=== PATIENT | female | born 1950 | race Caucasian/White ===

== ENCOUNTER → 2019-12-23 13:13 | Outpatient (CLI) | payer MEDICARE, SELFPAY ==
--- NOTE | ~2019-12-23 | US_ITS ---
EXAMINATION: US thyroid DATE: 12/23/2019 13:38 INDICATION: Nontoxic single thyroid nodule. TECHNIQUE: Multiple ultrasound images of the thyroid were obtained. COMPARISON: Ultrasound 07/31/2019, 05/06/2019 FINDINGS: The right thyroid lobe measures 4.9 x 1.9 x 1.9 cm. The left thyroid lobe measures 6.0 x 2.0 x 2.6 c m. The thyroid is diffusely hypoechoic with coarsened echotexture and increased vascularity. In the left thyroid lobe, there is a 2.5 cm solid, hypoechoic, tjztg-vigg-udqt nodule with ill-defined shae n without echogenic foci (TI-RADS TR4). In the left thyroid lobe, there is a 1.1 cm solid, hyperechoi c, odezj-imsx-fqji nodule with ill-defined margin without echogenic foci (TR3). In the left thyroid l obe, there is a 1.5 cm solid, hypoechoic, ldigm-uulr-jwpc nodule with ill-defined margin without echo genic foci (TR4). In the left thyroid lobe, there is a 2.8 cm solid, hypoechoic, ovuld-ccgq-rfth nodu le with ill-defined margin without echogenic foci (TR4) that yielded pathology consistent with benign follicular nodule at fine needle aspiration on 07/31/19. 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 In the right thyroid lobe, there is a 1.4 cm solid, hypoechoic, wider-t coy-tall nodule with ill-defined margin without echogenic foci (TR4). Because most of the nodules are ill-defined, the measurements may demonstrate variability between scans. IMPRESSION: 1. Multinodular goiter, stable from 05/06/2019 considering differences in measurement technique. Reviewed, dictated and finalized at location A. [employer] IMPRESSION: 1. Multinodular goiter, stable from 05/06/2019 considering differences in measur ement technique.
== END ==
PROVIDERS: Visit Provider Internal Medicine Endocrinology, Diabetes & Metabolism
DX: E04.2 Nontoxic multinodular goiter (principal)
CPT/HCPCS: 76536

== ENCOUNTER → 2020-07-06 09:00 | Outpatient (CLI) | payer MEDICARE, SELFPAY ==
--- NOTE | ~2020-07-06 | XR_ITS ---
EXAMINATION: XR hip RT min 2V DATE: 07/06/2020 09:30 INDICATION: Right hip pain. TECHNIQUE: 3 views of right hip were obtained. COMPARISON: None. FINDINGS: Bone alignment is normal. No fracture. Right hip joint space is normal. IMPRESSION: 1. Normal right hip. Reviewed, dictated and finalized at location B. IMPRESSION: 1. Normal right hip.
--- NOTE | ~2020-07-06 | XR_ITS ---
EXAMINATION: XR lumbar spine 2-3V EXAM DATE: 07/06/2020 09:30 INDICATION: Right low back pain, symptoms 3 days. TECHNIQUE: Lumber spine frontal, lateral, lateral L5-S1 projections for interpretation. There is no prior study for comparison. FINDINGS: There is moderate disc disease L5-S1, mild at L4-5. Mild to moderate disc disease L4-5 and lower lumbar region. No spondylolysis. The vertebral bodies are aligned in the AP dimension. There i s overall moderate lumbar facet arthropathy. There are no bony erosions identified. Sacrum, sacroilia c joints, sacral arcuate lines are intact. Paraspinal soft tissue is unremarkable. IMPRESSION: 1. Mild to moderate lumbar spondylosis. Reviewed, dictated and finalized at location A.
== END ==
PROVIDERS: PCP Physician Assistant; Visit Provider Physician Assistant
DX: M47.896 Other spondylosis, lumbar region (principal)
CPT/HCPCS: 72100; 73502

== ENCOUNTER → 2021-01-17 10:17 | Outpatient (CLI) | payer MEDICARE, SELFPAY ==
--- NOTE | ~2021-01-17 | US_ITS ---
EXAMINATION: US thyroid EXAM DATE: 01/17/2021 10:54 INDICATION: Nontoxic single thyroid nodule. TECHNIQUE: Multiple grayscale and Doppler images of the thyroid were obtained (by a technologist who performed the scan) and subsequently reviewed. Individual nodules and recommendations may be reporte d in accordance with TI-RADS system as designated by the 2017 ACR White Paper TI-RADS committee. Comp arison is made to prior examination from 12/23/2019, 05/06/2019. FINDINGS: The right thyroid lobe measures 5.6 x 2.3 x 1.9 cm, left thyroid lobe measures 6.6 x 2.2 x 2.7 cm. Th saroj dimensions are moderately enlarged. Again there are multiple thyroid nodules, largest on the left measuring 2.1 x 2.8 x 1.8 cm (previous dimensions 2.3 x 2.1 x 2.2 cm), and largest on the right alexy uring 1.7 x 0.8 x 1.5 (Previous dimensions 2.2 x 1.0 x 2.0). These 2 were previously biopsied, correl ate with histology. Nodules are varying echogenicities, category TR 3 and TR 4 lesions. No microcalci fications identified in any of them. IMPRESSION: Multinodular goiter. Reviewed, dictated and finalized at location B. [employer]ER IMPRESSION: Multinodular goiter.
== END ==
PROVIDERS: Visit Provider Internal Medicine Endocrinology, Diabetes & Metabolism
DX: E04.2 Nontoxic multinodular goiter (principal)
CPT/HCPCS: 76536

== ENCOUNTER 2021-03-09 13:25 | Outpatient (CLI) | payer MEDICARE, SELFPAY ==
--- NOTE | ~2021-03-09 | US_ITS ---
EXAMINATION: US FNA w image guidance DATE: 03/09/2021 14:20 INDICATION: Thyroid nodule. TECHNIQUE: The procedure and its benefits and risks were discussed with the patient. Risks specifically discusse d included bleeding. The patient verbalized understanding of the risks and agreed to proceed. The nec k was prepped and draped in the usual sterile manner. 1% lidocaine was used for local anesthesia. 5 passes were made with a 25G needle into the lesion under ultrasound guidance. There were no immedia te complications. The patient understood to call the ordering physician for results after a week and a half and verbalized that understanding. FINDINGS: Grayscale ultrasound images demonstrate needles advanced into a 3.0 cm nodule in left thyroid lobe fo r biopsy. IMPRESSION: 1. Ultrasound-guided fine needle aspiration of a left thyroid nodule. Reviewed, dictated and finalized at location A.
== END 2021-03-09 13:26 | disposition home or self-care (01) ==
PROVIDERS: PCP Physician Assistant; Visit Provider Internal Medicine Endocrinology, Diabetes & Metabolism
DX: E04.1 Nontoxic single thyroid nodule (principal)
CPT/HCPCS: 10005; 88173; 88305

== ENCOUNTER → 2021-04-20 10:13 | Outpatient (CLI) | payer MEDICARE, SELFPAY ==
--- NOTE | ~2021-04-20 | DEXA_ITS ---
Bone Density Report Name: Manju Hart Age: 70 Sex: Female Ethnicity: White Date of : 1950 Indication: osteopenia; monitoring treatment; height loss; postmenopausal Referring Provider: Garland*Sheryl Watkins Study: Bone densitometry was performed. Exam Date: April 20, 2021 Accession number: [id number] Bone Density: Region BMD T-score Z-score Classification AP Spine (L1-L4) 0.805 -2.2 -0.2 Osteopenia Femoral Neck (Left) 0.697 -1.4 0.3 Osteopenia Total Hip (Left) 0.809 -1.1 0.3 Osteopenia Femoral Neck (Right) 0.662 -1.7 0.0 Osteopenia Total Hip (Right) 0.745 -1.6 -0.2 Osteopenia Total Hip Mean 0.777 -1.4 0.1 Osteopenia World Health Organization criteria for BMD impression classify patients as: Normal (T-score at or above -1.0), Osteopenia (T-score between -1.0 and -2.5), or Osteoporosis (T-score at or below -2.5). 10-year Fracture Risk: FRAX not reported because: Treated for osteoporosis Previous Exams: Region Exam Age BMD T-score BMD Change BMD Change Date g/cm2 vs Baseline vs Previous AP Spine(L1-L4) 04/20/2021 70 0.805 -2.2 0.006 -0.010 01/10/2019 68 0.816 -2.1 0.017 -0.006 12/04/2014 64 0.822 -2.0 0.022 0.060 10/24/2012 62 0.762 -2.6 -0.037 -0.015 10/04/2009 59 0.777 -2.5 -0.023 -0.099* 04/19/2007 56 0.876 -1.6 0.076 0.076 06/10/2004 53 0.799 -2.3 Total Hip(Left) 04/20/2021 70 0.809 -1.1 0.012 -0.011 01/10/2019 68 0.820 -1.0 0.023 0.029* 12/04/2014 64 0.792 -1.2 -0.006 -0.024 10/24/2012 62 0.816 -1.0 0.019 -0.001 10/04/2009 59 0.817 -1.0 0.020 0.024 04/19/2007 56 0.794 -1.2 -0.004 -0.004 06/10/2004 53 0.797 -1.2 Total Hip(Right) 04/20/2021 70 0.745 -1.6 0.023 -0.027 01/10/2019 68 0.772 -1.4 0.050 0.038* 12/04/2014 64 0.734 -1.7 0.012 -0.020 10/24/2012 62 0.754 -1.5 0.032 -0.020 10/04/2009 59 0.774 -1.4 0.052 0.031* 04/19/2007 56 0.743 -1.6 0.021 0.021 06/10/2004 53 0.722 -1.8 *Denotes significance at 95% confidence level, LSC for AP Spine = 0.022 g/cm2, LSC for Total Hip = 0.027 g/cm2 Clinical Information Provided by Patient: Is being treated for osteoporosis
--- NOTE | ~2021-04-20 | MM_ITS ---
EXAMINATION: MM scrn nazario implant BI w lu HISTORY: Screening mammogram TECHNIQUE: Craniocaudal and mediolateral oblique 3-D tomosynthesis images with implant displacement a nd synthetic 2-D images were generated. Craniocaudal and mediolateral oblique views of the breasts wi thout implant displacement were obtained using full field digital mammography. CAD analysis was submi tted and interpreted. COMPARISON: MR breast examination 01/10/2019 bilateral diagnostic implant mammogram and limited left breast ultrasound 04/24/2016 MR breast examination /09/2016, 12/04/2014 bilateral diagnostic implant digital mammogram and limited left breast ultrasound examinations BREAST PARENCHYMAL COMPOSITION: The breasts are heterogeneously dense, which may obscure small masses . FINDINGS: There is no evidence of suspicious mass, calcification, or architectural distortion to sugg est malignancy in either breast. There has been no suspicious interval change. IMPRESSION: 1. No mammographic evidence of malignancy. 2. Recommend routine screening mammography in one year. BI-RADS Category 1: Negative Reviewed, dictated and finalized at location A.
== END ==
PROVIDERS: Visit Provider Nurse Practitioner
DX: Z12.31 Encounter for screening mammogram for malignant neoplasm of breast (principal); M85.88 Other specified disorders of bone density and structure, other site; M85.852 Other specified disorders of bone density and structure, left thigh; M85.851 Other specified disorders of bone density and structure, right thigh
CPT/HCPCS: 77063; 77067; 77080

== ENCOUNTER → 2021-12-06 09:09 | Outpatient (CLI) | payer MEDICARE, SELFPAY ==
--- NOTE | ~2021-12-06 | US_ITS ---
EXAMINATION: US thyroid EXAM DATE: 12/06/2021 09:32 INDICATION: Thyroid nodule . TECHNIQUE: Multiple grayscale and Doppler images of the thyroid were obtained (by a technologist who performed the scan) and subsequently reviewed. Individual nodules and recommendations may be reporte d in accordance with TI-RADS system as designated by the 2017 ACR White Paper TI-RADS committee. Comp zeyad is made to prior examination from 01/17/2021. FINDINGS: The right thyroid lobe measures 4.6 x 2.1 x 1.7 cm, the left measuring 6.1 x 2.3 cm. There is diffuse ly moderately heterogeneous thyroid echogenicity. There are 2 contiguous left thyroid lobe isoechoic nodules, category TR 3, larger midpole nodule alexy uring 2.5 x 2.1 x 2.3 cm, smaller lower pole nodule measuring 1.8 x 1.7 x 2.0 cm. These are unchanged compared to prior study, and reportedly had negative thyroid biopsy. Largest right thyroid lobe category TR 4 nodule measures 1.6 x 0.7 x 1.4 cm, also unchanged. Several other smaller nodules. IMPRESSION: Stable multinodular goiter. Consider follow-up in 1-2 years. Reviewed, dictated and finalized at location A. PERSON
== END ==
PROVIDERS: Visit Provider Internal Medicine Endocrinology, Diabetes & Metabolism
DX: E04.2 Nontoxic multinodular goiter (principal)
CPT/HCPCS: 76536

== ENCOUNTER → 2022-04-24 10:16 | Outpatient (CLI) | payer MEDICARE, SELFPAY ==
--- NOTE | ~2022-04-24 | MM_ITS ---
EXAMINATION: MM scrn nazario implant BI w lu HISTORY: Screening mammogram TECHNIQUE: Craniocaudal and mediolateral oblique 3-D tomosynthesis images with implant displacement a nd synthetic 2-D images were generated. Craniocaudal and mediolateral oblique views of the breasts wi thout implant displacement were obtained using full field digital mammography. CAD analysis was submi tted and interpreted. COMPARISON: Comparison to multiple prior studies sequentially, with oldest reviewed study dated 12/04. BREAST PARENCHYMAL COMPOSITION: There are scattered areas of fibroglandular density. FINDINGS: There is no evidence of suspicious mass, calcification, or architectural distortion to sugg est malignancy in either breast. There has been no suspicious interval change. IMPRESSION: 1. No mammographic evidence of malignancy. 2. Recommend routine screening mammography in one year. BI-RADS Category 1: Negative Reviewed, dictated and finalized at location A.
== END ==
PROVIDERS: PCP Physician Assistant; Visit Provider Nurse Practitioner
DX: Z12.31 Encounter for screening mammogram for malignant neoplasm of breast (principal)
CPT/HCPCS: 77063; 77067

== ENCOUNTER → 2023-04-27 10:46 | Outpatient (CLI) | payer MEDICARE, SELFPAY ==
--- NOTE | ~2023-04-27 | DEXA_ITS ---
Bone Density Report Name: IVETTE STEWARD Age: 72 Sex: Female Ethnicity: White Date of : 1950 Indication: osteopenia; monitoring treatment; height loss; postmenopausal Referring Provider: Garland*Sheryl Watkins Study: Bone densitometry was performed. Exam Date: April 27, 2023 Accession number: [id number] Bone Density: Region BMD T-score Z-score Classification AP Spine (L1-L4) 0.825 -2.0 0.1 Osteopenia Femoral Neck (Left) 0.674 -1.6 0.3 Osteopenia Total Hip (Left) 0.786 -1.3 0.3 Osteopenia Femoral Neck (Right) 0.661 -1.7 0.1 Osteopenia Total Hip (Right) 0.747 -1.6 -0.1 Osteopenia Total Hip Mean 0.767 -1.5 0.1 Osteopenia World Health Organization criteria for BMD impression classify patients as: Normal (T-score at or above -1.0), Osteopenia (T-score between -1.0 and -2.5), or Osteoporosis (T-score at or below -2.5). 10-year Fracture Risk: FRAX not reported because: Treated for osteoporosis Previous Exams: Region Exam Age BMD T-score BMD Change BMD Change Date g/cm2 vs Baseline vs Previous AP Spine(L1-L4) 04/27/2023 72 0.825 -2.0 0.025 0.019 04/20/2021 70 0.805 -2.2 0.006 -0.010 01/10/2019 68 0.816 -2.1 0.017 -0.006 12/04/2014 64 0.822 -2.0 0.022 0.060 10/24/2012 62 0.762 -2.6 -0.037 -0.015 10/04/2009 59 0.777 -2.5 -0.023 -0.099* 04/19/2007 56 0.876 -1.6 0.076 0.076 06/10/2004 53 0.799 -2.3 Total Hip(Left) 04/27/2023 72 0.786 -1.3 -0.011 -0.023 04/20/2021 70 0.809 -1.1 0.012 -0.011 01/10/2019 68 0.820 -1.0 0.023 0.029* 12/04/2014 64 0.792 -1.2 -0.006 -0.024 10/24/2012 62 0.816 -1.0 0.019 -0.001 10/04/2009 59 0.817 -1.0 0.020 0.024 04/19/2007 56 0.794 -1.2 -0.004 -0.004 06/10/2004 53 0.797 -1.2 Total Hip(Right) 04/27/2023 72 0.747 -1.6 0.025 0.002 04/20/2021 70 0.745 -1.6 0.023 -0.027 01/10/2019 68 0.772 -1.4 0.050 0.038* 12/04/2014 64 0.734 -1.7 0.012 -0.020 10/24/2012 62 0.754 -1.5 0.032 -0.020 10/04/2009 59 0.774 -1.4 0.052 0.031* 04/19/2007 56 0.743 -1.6 0.021 0.021 06/10/2004 53 0.722 -1.8 *Denotes significance at 95% confidence level, LSC for AP Spine =
--- NOTE | ~2023-04-27 | MM_ITS ---
EXAMINATION: MM scrn nazario implant BI w lu HISTORY: Screening mammogram TECHNIQUE: Craniocaudal and mediolateral oblique 3-D tomosynthesis images with implant displacement a nd synthetic 2-D images were generated. Craniocaudal and mediolateral oblique views of the breasts wi thout implant displacement were obtained using full field digital mammography. CAD analysis was submi tted and interpreted. COMPARISON: 04/24/2022, 04/30/2021, 03/20/2019 bilateral implant screening mammogram examinations BREAST PARENCHYMAL COMPOSITION: There are scattered areas of fibroglandular density. FINDINGS: Status post bilateral augmentation mammoplasty. There is no evidence of suspicious mass, ca lcification, or architectural distortion to suggest malignancy in either breast. There has been no jaramillo spicious interval change. IMPRESSION: 1. No mammographic evidence of malignancy. 2. Recommend routine screening mammography in one year. BI-RADS Category 1: Negative Reviewed, dictated and finalized at location A.
== END ==
PROVIDERS: PCP Nurse Practitioner; Visit Provider Nurse Practitioner
DX: Z12.31 Encounter for screening mammogram for malignant neoplasm of breast (principal); M81.0 Age-related osteoporosis without current pathological fracture; Z78.0 Asymptomatic menopausal state; M85.88 Other specified disorders of bone density and structure, other site; M85.852 Other specified disorders of bone density and structure, left thigh; M85.851 Other specified disorders of bone density and structure, right thigh
CPT/HCPCS: 77063; 77067; 77080

== ENCOUNTER → 2023-07-20 09:01 | Outpatient (CLI) | payer MEDICARE, SELFPAY ==
--- NOTE | ~2023-07-20 | US_ITS ---
EXAMINATION: US renal BI DATE: 07/20/2023 09:25 INDICATION: Chronic kidney disease. TECHNIQUE: Multiple ultrasound grayscale images of the kidneys were obtained. COMPARISON: None. FINDINGS: The right kidney measures 9.6 x 3.6 x 3.9 cm. The left kidney measures 9.3 x 3.5 x 4.3 cm. The kidney s demonstrate normal parenchymal echogenicity. There is no hydronephrosis. The bladder is normal. IMPRESSION: 1. Normal kidneys. No hydronephrosis. Reviewed, dictated and finalized at location A.
== END ==
PROVIDERS: PCP Internal Medicine Endocrinology, Diabetes & Metabolism; Visit Provider Internal Medicine Endocrinology, Diabetes & Metabolism
DX: N18.9 Chronic kidney disease, unspecified (principal)
CPT/HCPCS: 76775

== ENCOUNTER 2023-11-21 00:52 | Day surgery (SDC) | payer MEDICARE, SELFPAY ==
[2023-11-15 12:20] VITALS: BMI 30.8
--- NOTE | 2023-11-19 12:19 | SUR.PREOP ---
Patient called regarding upcoming procedure. Reviewed preop instructions, appointment times, and procedure prep.
--- NOTE | 2023-11-20 14:58 | PM.HPGS ---
History of Present Illness History of Present Illness Consent: Risks, benefits, and alternatives have been discussed and questions answered. Patient agrees to proceed with procedure. Chief complaint: Other Dysphagia Narrative: Manju Hart is a 73 year old female Referred for endoscopy because of dysphagia. Review of Systems Review of Systems: All systems reviewed & are unremarkable except as noted in HPI and below PMFSH Past Medical History Medical History GERD (gastroesophageal reflux disease) Hyperthyroidism Osteoporosis Surgical History Surgical History History of knee replacement Family History Family History Mother Family history of arthritis Family history of lung cancer Carcinoma of colon Family history of malignant neoplasm of breast in first degree relative Family history of lung disease Father Family history of heart disease in male family member before age 55 Other Family history of coronary artery disease Family history of malignant neoplasm Social History Social History Smoking status: Never smoker Second hand tobacco smoke exposure: No Alcohol intake: current Alcohol use details: occasionally-frequent Substance use type: does not use Living arrangements: with family Spiritual care concerns: No Meds Home Medications and Allergies Home Medications Medication Instructions Recorded Confirmed Type Calcium 600 mg PO DAILY 10/25/19 11/21/23 History alendronate 70 mg tablet (Fosamax) 70 mg PO WEEKLY 10/25/19 11/21/23 History cholecalciferol (vitamin D3) 125 50 mcg PO DAILY 10/25/19 11/21/23 History mcg (5,000 unit) tablet (Vitamin D3) meclizine 25 mg tablet 25 mg PO DAILY PRN Dizziness 10/25/19 11/21/23 History omeprazole 40 mg capsule,delayed 40 mg PO DAILY 10/25/19 11/21/23 History release levothyroxine 50 mcg tablet 50 mcg PO DAILY #90 tabs 11/16/19 11/21/23 Rx atorvastatin 20 mg tablet 20 mg PO DAILY 11/15/23 11/21/23 History liothyronine 5 mcg tablet 5 mcg PO BID 11/15/23 11/21/23 History mecobalamin (vitamin B12) 1,000 1,000 mcg PO DAILY 11/15/23 11/21/23 History mcg chewable tablet (B12 Active) Allergies Allergy/AdvReac Type Severity Reaction Status Date / Time No Known Allergies Allergy Verified 11/21/23 07:36 Exam Const: General: alert Orientation/consciousness: patient oriented x3 Resp: Auscultation: clear to auscultation bilaterally Cardio: Rhythm: regular rhythm GI: GI Palp: Yes Soft to palpation and No Tenderness to palpation present (GI) Neuro: General: patient oriented x3 Assessment and Plan Assessment and plan (1) Dysphagia: Code(s): R13.10 - Dysphagia, unspecified Status: Acute Assessment and Plan: EGD with possible biopsy or dilatation or cautery.
[2023-11-21 07:39] VITALS: BP 147/70; PULSE 61; RESP 16; TEMP 36.9; O2SAT 100; BMI 31.7
[2023-11-21] MEDS: LACTATED RINGERS 1,000 ML 150 ML IV CONT (07:49)
--- NOTE | 2023-11-21 08:29 | WPDANESEPPF ---
Anes - Initial Pre Proc Eval Procedure: Operation Date: 11/21/23 09:00 Proposed Procedures p Esophagogastroduodenoscopy - Pedro Reynoso MD Date/Time: 11/21/23 08:29 Surgeon: Pedro Reynoso MD Pre Op Diagnosis: Other Dysphagia Patient Data Age: 73 Gender: F Height: 1.65 m Weight: 86.6 kg Last Vital Signs Temp 98.5 F 11/21/23 07:39 Pulse 61 11/21/23 07:39 Resp 16 11/21/23 07:39 BP 147/70 H 11/21/23 07:39 Pulse Ox 100 11/21/23 07:39 O2 Del Method Room Air 11/21/23 07:39 Allergies Allergy/AdvReac Type Severity Reaction Status Date / Time No Known Allergies Allergy Verified 11/21/23 07:36 Home Medications Medication Instructions Recorded Confirmed Type Calcium 600 mg PO DAILY 10/25/19 11/21/23 History alendronate 70 mg tablet (Fosamax) 70 mg PO WEEKLY 10/25/19 11/21/23 History cholecalciferol (vitamin D3) 125 50 mcg PO DAILY 10/25/19 11/21/23 History mcg (5,000 unit) tablet (Vitamin D3) meclizine 25 mg tablet 25 mg PO DAILY PRN Dizziness 10/25/19 11/21/23 History omeprazole 40 mg capsule,delayed 40 mg PO DAILY 10/25/19 11/21/23 History release levothyroxine 50 mcg tablet 50 mcg PO DAILY #90 tabs 11/16/19 11/21/23 Rx atorvastatin 20 mg tablet 20 mg PO DAILY 11/15/23 11/21/23 History liothyronine 5 mcg tablet 5 mcg PO BID 11/15/23 11/21/23 History mecobalamin (vitamin B12) 1,000 1,000 mcg PO DAILY 11/15/23 11/21/23 History mcg chewable tablet (B12 Active) Patient hx anesthesia problems: none Family hx anesthesia problems: none Results Review: All pre-operative results and documents have been reviewed as part of the pre-operative evaluation. [facility] Past Medical History Medical History (Updated 11/20/23 @ 14:59 by Pedro Reynoso MD) GERD (gastroesophageal reflux disease) Hyperthyroidism Osteoporosis Surgical History Surgical History History of knee replacement Family History Family History Mother Family history of arthritis Family history of lung cancer Carcinoma of colon Family history of malignant neoplasm of breast in first degree relative Family history of lung disease Father Family history of heart disease in male family member before age 55 Other Family history of coronary artery disease Family history of malignant neoplasm Social History Social History (Updated 08/12/21 @ 15:34 by Kassie Romeo MA) Smoking status: Never smoker Second hand tobacco smoke exposure: No Alcohol intake: current Alcohol use details: occasionally-frequent Substance use type: does not use Living arrangements: with family Spiritual care concerns: No Anes - Eval Final PreProcedure Day of Procedure 11/21/23 08:29 Patient weight: obese Heart: regular rate and rhythm Lungs: clear to auscultation Airway: Mallampati scale class II Neurological: alert and oriented Last oral intake: >/= 8 hours ASA classification: III Emergent: no Anesthetic plan: proceed Anesthesia type and monitoring: general GIVS and standard monitoring Results Review: All pre-operative results and documents have been reviewed as part of the pre-operative evaluation. Informed Consent: The patient's anesthetic plan and its attendant risks and benefits were discussed with the patient/family/POA. Questions were solicited and answers provided to the satisfaction of the patient/family/POA.
[2023-11-21 09:08] VITALS: BP 128/63; PULSE 63; RESP 20; O2SAT 97
[2023-11-21 09:18] VITALS: BP 151/90; PULSE 54; RESP 14; O2SAT 100
[2023-11-21 09:28] VITALS: BP 128/63; PULSE 63; RESP 23; O2SAT 100
== END 2023-11-21 09:43 | disposition home or self-care (01) ==
PROVIDERS: PCP Family Medicine; Visit Provider Internal Medicine Gastroenterology
PROC: 0DJ08ZZ Inspection of Upper Intestinal Tract, Via Natural or Artificial Opening Endoscopic (ICD-10-PCS; CPT 43235; principal; 2023-11-21 09:00)
DX: K22.2 Esophageal obstruction (principal); K44.9 Diaphragmatic hernia without obstruction or gangrene; K21.9 Gastro-esophageal reflux disease without esophagitis; E05.90 Thyrotoxicosis, unspecified without thyrotoxic crisis or storm; M81.0 Age-related osteoporosis without current pathological fracture; E66.9 Obesity, unspecified; Z68.31 Body mass index [BMI] 31.0-31.9, adult
CPT/HCPCS: 43239; 88305; C1726; J2704; J7120

== ENCOUNTER 2024-03-04 05:51 | Day surgery (SDC) | payer MEDICARE, SELFPAY ==
[2024-01-28 11:07] VITALS: BMI 31.7
[2024-02-18 14:53] VITALS: BMI 31.5
--- NOTE | 2024-03-03 12:47 | P.PNAN_ITS ---
Anes - Initial Pre Proc Eval Procedure: Operation Date: 03/04/24 08:00 Proposed Procedures p Diagnostic Colonoscopy - Pedro Reynoso MD Date/Time: 03/03/24 12:47 Surgeon: Pedro Reynoso MD Pre Op Diagnosis: Family History of Colon Cancer Patient Data Age: 73 Gender: F Height: 1.65 m Weight: 86 kg Allergies Allergy/AdvReac Type Severity Reaction Status Date / Time No Known Allergies Allergy Verified 03/04/24 06:37 Home Medications Medication Instructions Recorded Confirmed Type Calcium 600 mg PO DAILY 10/25/19 03/04/24 History alendronate 70 mg tablet (Fosamax) 70 mg PO WEEKLY 10/25/19 03/04/24 History cholecalciferol (vitamin D3) 125 2,000 unit PO DAILY 10/25/19 03/04/24 History mcg (5,000 unit) tablet (Vitamin D3) meclizine 25 mg tablet 25 mg PO DAILY PRN Dizziness 10/25/19 03/04/24 History omeprazole 40 mg capsule,delayed 40 mg PO DAILY 10/25/19 03/04/24 History release levothyroxine 50 mcg tablet 50 mcg PO DAILY #90 tabs 11/16/19 03/04/24 Rx atorvastatin 20 mg tablet 20 mg PO DAILY 11/15/23 03/04/24 History liothyronine 5 mcg tablet 5 mcg PO BID 11/15/23 03/04/24 History mecobalamin (vitamin B12) 1,000 2,000 mcg PO DAILY 11/15/23 03/04/24 History mcg chewable tablet (B12 Active) Patient hx anesthesia problems: none Family hx anesthesia problems: none Results Review: All pre-operative results and documents have been reviewed as part of the pre- operative evaluation. [facility] Past Medical History Medical History GERD (gastroesophageal reflux disease) High cholesterol Hyperthyroidism Osteoporosis Surgical History Surgical History History of knee replacement History of tubal ligation Family History Family History Mother Family history of arthritis Family history of lung cancer Carcinoma of colon Family history of malignant neoplasm of breast in first degree relative Family history of lung disease Father Family history of heart disease in male family member before age 55 Other Family history of coronary artery disease Family history of malignant neoplasm Social History Social History Smoking status: Never smoker Second hand tobacco smoke exposure: No Alcohol intake: never Alcohol use details: occasionally-frequent Substance use: never Substance use type: does not use Living arrangements: with family Spiritual care concerns: No Anes - Eval Final PreProcedure Day of Procedure 03/03/24 12:47 Patient weight: obese Heart: regular rate and rhythm Lungs: clear to auscultation Airway: Mallampati scale class II Neurological: alert and oriented Last oral intake: >/= 8 hours ASA classification: II Emergent: no Anesthetic plan: proceed Anesthesia type and monitoring: general GIVS and standard monitoring Results Review: All pre-operative results and documents have been reviewed as part of the pre- operative evaluation. Informed Consent: The patient's anesthetic plan and its attendant risks and benefits were discussed with the patient/family/POA. Questions were solicited and answers provided to the satisfaction of the patient/family/POA.
--- NOTE | 2024-03-03 13:55 | PM.HPGS ---
History of Present Illness History of Present Illness Consent: Risks, benefits, and alternatives have been discussed and questions answered. Patient agrees to proceed with procedure. Chief complaint: Family History of Colon Cancer Narrative: Manju Hart is a 73 year old female Here for colon cancer screening. Her mother had colon cancer. Review of Systems Review of Systems: All systems reviewed & are unremarkable except as noted in HPI and below PMFSH Past Medical History Medical History GERD (gastroesophageal reflux disease) High cholesterol Hyperthyroidism Osteoporosis Surgical History Surgical History History of knee replacement History of tubal ligation Family History Family History Mother Family history of arthritis Family history of lung cancer Carcinoma of colon Family history of malignant neoplasm of breast in first degree relative Family history of lung disease Father Family history of heart disease in male family member before age 55 Other Family history of coronary artery disease Family history of malignant neoplasm Social History Social History Smoking status: Never smoker Second hand tobacco smoke exposure: No Alcohol intake: never Alcohol use details: occasionally-frequent Substance use: never Substance use type: does not use Living arrangements: with family Spiritual care concerns: No Meds Home Medications and Allergies Home Medications Medication Instructions Recorded Confirmed Type Calcium 600 mg PO DAILY 10/25/19 03/04/24 History alendronate 70 mg tablet (Fosamax) 70 mg PO WEEKLY 10/25/19 03/04/24 History cholecalciferol (vitamin D3) 125 2,000 unit PO DAILY 10/25/19 03/04/24 History mcg (5,000 unit) tablet (Vitamin D3) meclizine 25 mg tablet 25 mg PO DAILY PRN Dizziness 10/25/19 03/04/24 History omeprazole 40 mg capsule,delayed 40 mg PO DAILY 10/25/19 03/04/24 History release levothyroxine 50 mcg tablet 50 mcg PO DAILY #90 tabs 11/16/19 03/04/24 Rx atorvastatin 20 mg tablet 20 mg PO DAILY 11/15/23 03/04/24 History liothyronine 5 mcg tablet 5 mcg PO BID 11/15/23 03/04/24 History mecobalamin (vitamin B12) 1,000 2,000 mcg PO DAILY 11/15/23 03/04/24 History mcg chewable tablet (B12 Active) Allergies Allergy/AdvReac Type Severity Reaction Status Date / Time No Known Allergies Allergy Verified 03/04/24 06:37 Exam Resp: Auscultation: clear to auscultation bilaterally Cardio: Rate: regular rate Rhythm: regular rhythm GI: GI Palp: Yes Soft to palpation and No Tenderness to palpation present (GI) Assessment and Plan Assessment and plan (1) Colon cancer screening: Code(s): Z12.11 - Encounter for screening for malignant neoplasm of colon Status: Acute Assessment and Plan: Colonoscopy with possible biopsy or polypectomy or cautery or injection of substances.
[2024-03-04 06:45] VITALS: BP 148/87; PULSE 67; RESP 18; TEMP 36.8; O2SAT 99; BMI 31.5
[2024-03-04] MEDS: LACTATED RINGERS 1,000 ML 150 ML IV CONT (06:59)
[2024-03-04 08:02] VITALS: BP 110/93; PULSE 70; RESP 16
[2024-03-04 08:12] VITALS: BP 126/72; PULSE 65; RESP 16; O2SAT 99
[2024-03-04 08:22] VITALS: BP 128/67; PULSE 54; RESP 16
--- NOTE | 2024-03-04 12:17 | WPDANESPN ---
Anes - Prog Note Post-Op Date/Time: 03/04/24 12:17 Cardiovascular status: normal Respiratory status: normal Airway patency: baseline Mental status: baseline Post-Op hydration status: normal Vital Signs: Last Vital Signs Temp 36.8 C 03/04/24 06:45 Pulse 54 L 03/04/24 08:22 Resp 16 03/04/24 08:22 BP 128/67 03/04/24 08:22 Pulse Ox 99 03/04/24 08:12 O2 Del Method Room Air 03/04/24 08:12 Pain Score (VAS): 0 I/O: Intake & Output 03/03/24 03/04/24 03/04/24 23:59 07:59 15:59 Intake Total 300 Balance 300 Post-procedural complaints: none Patient Feedback: Patient satisfied with anesthetic care. Other Findings: Patient vital signs back to baseline. Patient denies nausea and vomiting. Patient's pain under control. Patient OK for discharge.
== END 2024-03-04 08:40 | disposition home or self-care (01) ==
PROVIDERS: PCP Family Medicine; Visit Provider Internal Medicine Gastroenterology
PROC: 0DJD8ZZ Inspection of Lower Intestinal Tract, Via Natural or Artificial Opening Endoscopic (ICD-10-PCS; CPT 45378; principal; 2024-03-04 08:00)
DX: Z12.11 Encounter for screening for malignant neoplasm of colon (principal); Z80.0 Family history of malignant neoplasm of digestive organs
CPT/HCPCS: 45378

== ENCOUNTER 2024-03-21 08:11 | Outpatient (CLI) | payer OTHER, SELFPAY ==
--- NOTE | 2024-03-21 08:21 | ECG_ITS ---
SEE SCANNED COPY FOR CONFIRMED REPORT MTDD
== END 2024-03-21 08:12 | disposition home or self-care (01) ==
LOC: ANHSURGERY 08:14
PROVIDERS: PCP Family Medicine; Visit Provider Surgery Plastic and Reconstructive Surgery
DX: Z01.818 Encounter for other preprocedural examination (principal); E78.00 Pure hypercholesterolemia, unspecified
CPT/HCPCS: 93005

== ENCOUNTER 2024-03-28 00:22 | Day surgery (SDC) | payer OTHER, SELFPAY ==
[2024-03-19 11:10] VITALS: BMI 31.6
--- NOTE | 2024-03-19 11:17 | PC.NURSE ---
PRE-OP INSTRUCTIONS, PLEASE READ CAREFULLY Report to the Outpatient Waiting Room, entrance under the green pavilion located off [facility], at time _0930_ on date _03/28/24_. Planned Procedure Time: _1130_. Time changes happen often and if your time is changed the preop area will call you the afternoon before. - You and your visitor will be asked to self-screen and do not enter if you have any COVID symptoms. - A mask is optional within the hospital at this time. Patients may have clear liquids (water, carbonated beverages, clear teas, apple juice) until 3 hours prior to surgery (0830 AM) with a maximum of 20 ounces. - No food from midnight until time of surgery Take the following medications with a SIP of water the morning of surgery: _LEVOTHYROXINE, LIOTHYRONINE, & MECLIZINE IF NEEDED_ DO NOT STOP ANY OF YOUR OTHER PRESCRIPTION MEDICATIONS PRIOR TO SURGERY ?EXCEPT THE FOLLOWING Medications to discontinue per ANESTHESIA - _VITAMINS/SUPPLEMENTS 3 DAYS PRIOR TO SURGERY, Date to take last dose 03/24/24_ Please no make-up, nail marshallese, hairspray, perfume, deodorant, or body powder the day of surgery. No jewelry (including any body piercings) or valuables the day of surgery, leave them at home. Please take a shower or bath the night before, or the morning of, surgery with an antibacterial soap. Wear comfortable, loose fitting clothing. - Jewelry must be removed prior to entering the operating room. Rings and piercings that are not removed may be cut off. - The hospital will not accept responsibility for valuables. - Please leave all valuables, including medications, at home the day of surgery. If you are going home after surgery, a licensed hammer driver must drive you home. - NO public transportation without another adult if you receive anesthesia. - We recommend that an adult stay with you for 24 hours following discharge. - We also recommend that you do not drive, make important decision, drink alcoholic beverages, or take any drugs that were not prescribed by your health care provider for at least 24 hours after your discharge time. Follow any additional instructions given to you from your surgeon. If you or anyone in your household have experienced Covid symptoms in the past week, please notify your surgeon or the nurse liaison at the phone number below for possible testing. Telephone instructions given to _PATIENT_and asked if any additional questions and then verbalized understanding. Patient advised to call surgeon office or pre surgery nurse liaison [phone] if any additional questions.
[2024-03-28] VITALS (10 sets, daily range): BP systolic 119–153; BP diastolic 55–78; PULSE 57–81; RESP 14–18; TEMP 36.2–36.9; O2SAT 91–100
[2024-03-28] MEDS: LACTATED RINGERS 1,000 ML 30 ML IV CONT ×3 (10:00→15:47)
[2024-03-28 10:13] LABS: Urine Cotinine NEGATIVE
--- NOTE | 2024-03-28 11:25 | WPDANESEPPF ---
Anes - Initial Pre Proc Eval Procedure: Operation Date: 03/28/24 11:30 Proposed Procedures p Bilateral Breast Implant Removal with Capsulectomy - Lito Harrington MD s Bilateral Breast Mastopexy, - Lito Harrington MD Date/Time: 03/28/24 11:25 Surgeon: Lito Harrington MD Pre Op Diagnosis: hx of breast augmentation Patient Data Age: 73 Gender: F Height: 1.65 m Weight: 86.36 kg Last Vital Signs Temp 98.4 F 03/28/24 09:30 Pulse 57 L 03/28/24 09:30 BP 153/72 H 03/28/24 09:30 Pulse Ox 98 03/28/24 09:30 O2 Del Method Room Air 03/28/24 09:30 Allergies Allergy/AdvReac Type Severity Reaction Status Date / Time No Known Allergies Allergy Verified 03/19/24 11:07 Home Medications Medication Instructions Recorded Confirmed Type Calcium 1,200 mg PO DAILY 10/25/19 03/19/24 History alendronate 70 mg tablet (Fosamax) 70 mg PO WEEKLY 10/25/19 03/19/24 History cholecalciferol (vitamin D3) 125 2,000 unit PO DAILY 10/25/19 03/19/24 History mcg (5,000 unit) tablet (Vitamin D3) meclizine 25 mg tablet 25 mg PO DAILY PRN Dizziness 10/25/19 03/19/24 History omeprazole 40 mg capsule,delayed 40 mg PO DAILY 10/25/19 03/19/24 History release levothyroxine 50 mcg tablet 50 mcg PO DAILY #90 tabs 11/16/19 03/19/24 Rx atorvastatin 20 mg tablet 20 mg PO DAILY 11/15/23 03/19/24 History liothyronine 5 mcg tablet 5 mcg PO BID 11/15/23 03/19/24 History mecobalamin (vitamin B12) 1,000 2,000 mcg PO DAILY 11/15/23 03/19/24 History mcg chewable tablet (B12 Active) folic acid 800 mcg tablet 0.8 mg PO DAILY 03/19/24 03/19/24 History Laboratory Tests 03/28/24 09:39 Cotinine Negative Patient hx anesthesia problems: other (Pt has been slow to emerge from GA in the past. ) Family hx anesthesia problems: none Results Review: All pre-operative results and documents have been reviewed as part of the pre-operative evaluation. [facility] Past Medical History Medical History GERD (gastroesophageal reflux disease) High cholesterol Hyperthyroidism Osteoporosis Surgical History Surgical History History of knee replacement History of tubal ligation Family History Family History Mother Family history of arthritis Family history of lung cancer Carcinoma of colon Family history of malignant neoplasm of breast in first degree relative Family history of lung disease Father Family history of heart disease in male family member before age 55 Other Family history of coronary artery disease Family history of malignant neoplasm Social History Social History Smoking status: Never smoker Second hand tobacco smoke exposure: No Alcohol intake: never Alcohol use details: occasionally-frequent Substance use: never Substance use type: does not use Living arrangements: with family Spiritual care concerns: No Anes - Eval Final PreProcedure Day of Procedure 03/28/24 11:25 Patient weight: obese Heart: regular rate and rhythm Lungs: clear to auscultation Airway: Mallampati scale class II Neurological: alert and oriented Last oral intake: >/= 8 hours ASA classification: II Emergent: no Anesthetic plan: proceed Anesthesia type and monitoring: general and standard monitoring Results Review: All pre-operative results and documents have been reviewed as part of the pre-operative evaluation. Hypothyroidism. Informed Consent: The patient's anesthetic plan and its attendant risks and benefits were discussed with the patient/family/POA. Questions were solicited and answers provided to the satisfaction of the patient/family/POA.
--- NOTE | 2024-03-28 11:58 | WPDHPUPDATE1 ---
History and Physical Update Update Date/Time: 03/28/24 11:58 History and Physical has been reviewed, including an updated exam of the patient. There are NO changes in the patient's condition. Risks, benefits, and alternatives have been discussed and questions answered. Patient agrees to proceed with procedure.
[2024-03-28] MEDS: ceFAZolin 2 GM/D5W 50 ML 2 GM/50 ML BAG IVPB (12:26)
[2024-03-28] MEDS: TRANEXAMIC ACID 1,000MG/ISO100 1,000 MG/100 ML BAG 200 MG IVPB (12:31)
[2024-03-28] MEDS: BUPivacaine HCL 0.25% PF 30 ML VIAL INFILTRATE (12:41)
[2024-03-28] MEDS: LIDO 1%/EPINEPHRINE 1:100,000 20 ML VIAL 30 ML INFILTRATE (12:44)
--- NOTE | 2024-03-28 14:13 | W.PM.PROC2 ---
Procedure Note - Detailed Date of Procedure 03/28/24 Pre-op Diagnosis hx of breast augmentation Post-op Diagnosis Same Procedure Performed Bilateral implant removal Bilateral breast mastopexy Surgeon Lito Harrington MD Anesthesia General Findings Previous implants [id number] Right - ruptured Left - intact Left breast mass identified and sent to pathology Description of Procedure She is here today for the above. Previously and again today the risks, benefits, alternatives were discussed in extensive detail. I wanted her to be very realistic about the risks involved as well as expectations. We discussed aftercare and what to monitor for. Made sure answered all of her questions to her satisfaction today and consent was obtained. Marked in the preoperative holding area with their verification. The patient was taken to the operating room placed supine on the operating table. Anesthesia was provided by anesthesiology. A surgical time-out was taken. She was prepped and draped in a standard sterile fashion. 1% lidocaine and 0.25% Marcaine with epi used to provide a field block. 10 blade used to make an IMF incision and continued until the capsule was identified. Significant portion of capsule removed. Findings as above. I irrigated with a total of 3 liters of saline solution on TUR tubing. On the left lateral breast there was a mass present. These was excised and sent to pathology. A portion of this extend to the dermis which was left intact to protect the skin. I verified a strict hemostasis. The breast was tailor tacked into place. I tailor tacked the breast into position. Placed her in a sitting position. Verified the nipple-areolar location based on preoperative planning as well as intraoperative observations and measurements in full agreement. She was placed supine. I de-epithelialized the pedicle. Taked the mastopexy into place with 2-0 PDS. I closed along the IMF with 2-0 Stratafix. Along the vertical with 2-0 PDS. I closed around the [place] with 3-0 strata fix. 3-0 Monocryl along the vertical. 3-0 Stratafix along the IMF. I finally closed everything with running subcuticular 4-0 Monocryl and tissue glue. Fluffs and surgical bra were placed. Estimated Blood Loss 30 Drains No Packing No Pathology Yes (Bilateral breast capsules, left breast mass.) Complications No immediate complications Condition Stable Disposition PACU
[2024-03-28] MEDS: fentaNYL CITRATE INJ (*CRX) 100 MCG/2 ML VIAL 25 MCG IV PUSH ×5 (14:44→15:58)
--- NOTE | 2024-03-28 14:48 | ECG_ITS ---
SEE SCANNED COPY FOR CONFIRMED REPORT MTDD
[2024-03-28] MEDS: ONDANSETRON INJ 4 MG/2 ML VIAL IV PUSH (15:14)
[2024-03-28] MEDS: diphenhydrAMINE HCl INJ 50 MG/ML VIAL 12.5 MG IV PUSH (15:46)
[2024-03-28] MEDS: HALOPERIDOL LACTATE 5 MG/ML VIAL IV PUSH (16:40)
== END 2024-03-28 17:09 | disposition home or self-care (01) ==
PROVIDERS: PCP Family Medicine; Visit Provider Surgery Plastic and Reconstructive Surgery
PROC: (CPT 19342; principal; 2024-03-28 11:30)
PROC: (CPT 19316; 2024-03-28 11:30)
DX: T85.41XA Breakdown (mechanical) of breast prosthesis and implant, initial encounter (principal); N60.12 Diffuse cystic mastopathy of left breast; N60.11 Diffuse cystic mastopathy of right breast; Y83.8 Other surgical procedures as the cause of abnormal reaction of the patient, or of later complication, without mention of misadventure at the time of the procedure; E78.00 Pure hypercholesterolemia, unspecified; K21.9 Gastro-esophageal reflux disease without esophagitis; M81.0 Age-related osteoporosis without current pathological fracture; E66.9 Obesity, unspecified; Z68.31 Body mass index [BMI] 31.0-31.9, adult
CPT/HCPCS: 19371; 19316; 80307; 88304; 88307; 93005; J0171; J0690; J1100; J1170; J1200; J1630; J2405; J2704; J3010; J7120

== ENCOUNTER 2024-10-06 10:27 | Outpatient (CLI) | payer MEDICARE, SELFPAY ==
--- NOTE | ~2024-10-06 | MM_ITS ---
EXAMINATION: MM screening [facility] BI w lu HISTORY: Screening TECHNIQUE: Craniocaudal and mediolateral oblique 3-D tomosynthesis images were obtained and synthetic 2-D images were generated. CAD analysis was submitted and interpreted. COMPARISON: Recent breast implant removal in 03/2019 BREAST PARENCHYMAL COMPOSITION: Not dense: There are scattered areas of fibroglandular density. FINDINGS: There are asymmetries in the upper outer quadrant of the left breast posteriorly and the up per central aspect of the right breast posteriorly. There is also a focal asymmetry in the lower inne r quadrant of the left breast posteriorly. These are likely related to previous breast implant remova l surgery although further evaluation is recommended. IMPRESSION: 1. Bilateral breast asymmetries. 2. Additional mammographic views and possible breast ultrasound are recommended. BI-RADS Category 0: Incomplete: Needs additional imaging evaluation. Reviewed, dictated and finalized at location B. RICAL TOOL PROGRAMMER IMPRESSION: 1. Bilateral breast asymmetries. 2. Additional mammographic views and possible breast ultrasound are recommended . BI-RADS Category 0: Incomplete: Needs additional imaging evaluation.
== END 2024-10-06 10:28 | disposition home or self-care (01) ==
LOC: MICIMG 10:29
PROVIDERS: PCP Nurse Practitioner; Visit Provider Nurse Practitioner
DX: Z12.31 Encounter for screening mammogram for malignant neoplasm of breast (principal); N64.89 Other specified disorders of breast; Z98.82 Breast implant status
CPT/HCPCS: 77063; 77067

== ENCOUNTER 2024-10-13 09:42 | Outpatient (CLI) | payer MEDICARE, SELFPAY ==
--- NOTE | ~2024-10-13 | US_ITS ---
EXAMINATION: US thyroid DATE: 10/13/2024 09:57 INDICATION: Nontoxic single thyroid nodule. TECHNIQUE: Multiple ultrasound images of the thyroid were obtained. COMPARISON: Ultrasound 12/06/2021 FINDINGS: The right thyroid lobe measures 4.9 x 2.1 x 2.0 cm. The left thyroid lobe measures 5.6 x 2.0 x 2.2 c m. The thyroid demonstrates heterogeneous hypoechogenicity and increased vascularity. No discrete no dule. IMPRESSION: 1. Heterogeneous and hypervascular thyroid, likely chronic lymphocytic (Miranda) thyroiditis. Reviewed, dictated and finalized at location A. R TREATMENT PLANT OPERATOR IMPRESSION: 1. Heterogeneous and hypervascular thyroid, likely chronic lymphocytic (Hashimo to) thyroiditis.
== END 2024-10-13 09:43 | disposition home or self-care (01) ==
LOC: MICIMG 09:43
PROVIDERS: PCP Internal Medicine Endocrinology, Diabetes & Metabolism; Visit Provider Internal Medicine Endocrinology, Diabetes & Metabolism
DX: E04.1 Nontoxic single thyroid nodule (principal)
CPT/HCPCS: 76536

== ENCOUNTER 2024-10-29 09:51 | Outpatient (CLI) | payer MEDICARE, SELFPAY ==
--- NOTE | ~2024-10-29 | MMUS_ITS ---
EXAMINATION: MM diagnostic [facility] BI w lu, US breast BI complete HISTORY: Status post implant removal. Previous benign biopsy of the left breast. TECHNIQUE: Additional 3-D tomosynthesis images of the breasts were performed and synthetic 2-D images were generated. CAD analysis was submitted and interpreted. High resolution bilateral complete breas t ultrasound was performed. COMPARISON: Comparison to multiple prior studies sequentially, with oldest reviewed study dated 07/2019. BREAST PARENCHYMAL COMPOSITION: Not dense: There are scattered areas of fibroglandular density. FINDINGS: MAMMOGRAPHIC FINDINGS: There are persistent asymmetries posteriorly in the left breast and right breast. This is more diffus e centrally in the right breast and multifocal posteriorly in the left breast. These findings are lik ed related to prior implant removal with possible implant rupture. ULTRASOUND: Complete US of all 4 quadrants of the breast/s and retroareolar region was reviewed. At 12:00, 4 cm from the nipple there is an elongated fluid collection measuring 4.9 x 1.1 x 5.9 cm re sponding to the area of mammographic asymmetry, likely postsurgical seroma. Left breast: There are multiple areas of increased echogenicity with shadowing scattered throughout t he left breast, likely representing sequela of previous implant rupture. At 4:00, 6 cm from the nippl e there is a 3 mm cyst. At 5:00, 6 cm from the nipple there is a 6 mm cyst. At 7:00 near the nipple t here is a 3 mm cyst. At 8:00 near the nipple there is a 3 mm cyst. IMPRESSION: 1. Probable benign sequela of prior breast implant removal and implant rupture in both breasts. 2. Recommend 6 month follow-up diagnostic bilateral mammogram and ultrasound recommended. BI-RADS category 3, probably benign findings. Reviewed, dictated and finalized at location B. OLL LEAD IMPRESSION: 1. Probable benign sequela of prior breast implant removal and implant rupture in both breasts. 2. Recommend 6 month follow-up diagnostic bilateral mammogram and ultrasound re commended. BI-RADS category 3, probably benign findings.
== END 2024-10-29 09:52 | disposition home or self-care (01) ==
LOC: MICIMG 09:53
PROVIDERS: PCP Internal Medicine Endocrinology, Diabetes & Metabolism; Visit Provider Obstetrics & Gynecology Gynecology
DX: R92.8 Other abnormal and inconclusive findings on diagnostic imaging of breast (principal)
CPT/HCPCS: 76641; 77062; 77066; G0279

== ENCOUNTER 2025-01-26 13:11 | Emergency (ER) | payer MEDICARE, SELFPAY ==
[2025-01-26] VITALS (16 sets, daily range): BP systolic 147–190; BP diastolic 62–102; PULSE 55–72; RESP 11–18; TEMP 36.6–36.7; O2SAT 97–100
--- NOTE | ~2025-01-26 | XR_ITS ---
XR chest 2V Ordering provider: Nacho Barragan MD History: 74 years Female with . chest pain . Comparison: October 25, 2019 FINDINGS: MEDIASTINUM: The cardiac silhouette is not enlarged. LUNGS: No infiltrates, effusions or pneumothorax. OTHER: No free air under the diaphragm. IMPRESSION: No acute cardiopulmonary pathology. Reviewed, dictated and finalized at location A.
--- NOTE | ~2025-01-26 | CT_ITS ---
EXAMINATION: CT brain wo con DATE: 01/26/2025 17:05 INDICATION: Severe headache TECHNIQUE: Computed tomography (CT) of the head was performed without intravenous contrast. Sagittal and coronal reconstructions were performed. The mA was adjusted according to patient size. Iterative reconstruction technique was employed. The dose-length product was 605.33 mGy-cm. COMPARISON: head CT dated 07/29/19 FINDINGS: No acute intracranial hemorrhage, acute infarction or abnormal extra axial fluid collection. There is mild scattered white matter hypoattenuation consistent with chronic small vessel ischemic disease. V entricles are normal and symmetric. No mass/mass effect. The orbits, paranasal sinuses and mastoid ai r cells are normal. IMPRESSION: 1. Normal aging brain. No acute intracranial process. Reviewed, dictated and finalized at location A.
--- OUTSIDE RECORDS SUMMARY | 2025-01-26 15:40 | XMS_ITS | Encounter Summary ---
Author Organization [facility] Healthcare Address [address] [place] [address] Care Team Providers Care Gynecologist Name Role Phone Kierra Olivia Primary Care Provider [phone] Encounter Details Date Type Department Care Team (Late st Contact Info) Description 03/11/2024 Orders Only [facility] [address] [place] [address] Scanning, Provider Social History Tobacco Use Types Packs/Day Years Used Date Smoking Tobacco: Never Smokeless Tobacco: Never Alcohol Use Standard Drinks/Week Comments Not Currently 0 (1 standard drink = 0.6 oz pur e alcohol) AUDIT-C Answer Date Recorded Q1: How often do you have a drink containing alcohol? Never 07/24/2022 Q2: How many drinks containi ng alcohol do you have on a typical day when you are drinking? Patient does not drink Q3: How often do you have si x or more drinks on one occasion? 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 Gender Identity Not on file Sexual Orientation Not on file Occupation Industry Job Start Date Job End Date Retired Not on file Not on file Not on file documented as of this encounter Plan of Treatment Not on file documented as of this encounter Procedures Procedure Name Priority Date/Time Associated Diagnosis Comments SCAN - RADIOLOGY/IMAGING 03/11/2024 documented in this encounter Results * SCAN - RADIOLOGY/IMAGING (03/11/2024) Anatomical Region Laterality Modality Other us Provider Scanning Final Result documented in this encounter Visit Diagnoses Not on filedocumented in this encounter Care Teams Gynecologist Relationship Specialty Start Date End Date Kierra Olivia PA [address] [facility] [address] [place] [address] PCP - General Internal Medicine 09/29/19 documented as of this encounter
--- OUTSIDE RECORDS SUMMARY | 2025-01-26 15:40 | XMS_ITS | Clinical Summary ---
Author Organization [facility] [place] [facility] Address [address] [place] [address] Care Team Providers Care Market Research Intern Name Role Phone Kierra Olivia Primary Care Provider [phone] Allergies No known active allergies Medications alendronate (FOSAMAX) 70 mg tablet Fosamax 70 mg tablet Active cholecalciferol (VITAMIN D-3) 400 unit capsule Vitamin D3 Active omeprazole (PriLOSEC) 40 mg capsule Take 1 capsule (40 mg total) by mouth daily 90 capsule 1 0 Active levothyroxine (SYNTHROID) 50 mcg tablet Synthroid 50 mcg tablet TAKE 1 TABLET BY MOUTH DAILY Active meclizine (ANTIVERT) 25 mg tablet Take 1 tablet (25 mg total) by mouth 3 (three) times a day as needed for dizziness 20 tablet 1 2 Active Active Problems Problem Noted Date Diagnosed Date Annual physical exam 08/06/2022 Assessment & Plan (08/06/2022 9:02 PM CDT): Encouraged healthy lifestyle, good nutrition and exercise. Encouraged Calcium and Vitamin D and weight bearing exercise for bone health. Reviewed immunizations Reviewed age appropirate screenings. BMI 29.0-29.9,adult 01/11/2022 Assessment & Plan (08/06/2022 9:01 PM CDT): Weight/BMI is in healthy range. Continue healthy lifestyle to maintain. Assessment & Plan (01/11/2022 8:27 AM [employer]): Weight/BMI is in healthy range. Continue healthy lifestyle to maintain. Medicare annual wellness visit, subsequent 01/09 Assessment & Plan (01/11/2022 9:14 AM [employer] WORKER): Encouraged healthy lifestyle, good nutrition and exercise. Encouraged Calcium and Vitamin D and weight bearing exercise for bone health. Reviewed immunizations. Reviewed age appropirate screenings. Medicare Wellness Documentation is completed within the chart Assessment & Plan (07/18/2021 9:29 PM CDT): Encouraged healthy lifestyle, good nutrition and exercise. Encouraged Calcium and Vitamin D and weight bearing exercise for bone health. Reviewed immunizations Reviewed age appropirate screenings. Assessment & Plan (01/09/2021 9:17 PM [employer]): Encouraged healthy lifestyle, good nutrition and exercise. Encouraged Calcium and Vitamin D and weight bearing exercise for bone health. Reviewed immunizations. Reviewed age appropirate screenings. Medicare Wellness Documentation is completed within the chart Lumbar back pain 07/10/2020 Assessment & Plan (07/10/2020 9:02 PM CDT): This is a significant, separately identifiable problem that was evaluated and managed on the same day as the wellness exam Persistent discomfort in groin and low back. Check xrays. NSAIDs/heat prn Start PT. Followup if sxs persist Right groin pain 07/10/2020 Assessment & Plan (07/10/2020 9:02 PM CDT): This is a significant, separately identifiable problem that was evaluated and managed on the same day as the wellness exam Persistent discomfort in groin and low back. Check xrays. NSAIDs/heat prn Start PT. Followup if sxs persist Stage 3b chronic kidney disease 01/01/2020 Assessment & Plan (08/06/2022 9:01 PM CDT): Avoid nephrotoxic drugs including NSAIDs. Monitor labs. Assessment & Plan (01/11/2022 9:14 AM [employer] WORK[employer]): Kidney function with continued stability. Continue to avoid renal toxic drugs. Assessment & Plan (07/19/2021 9:03 AM CDT): Avoid nephrotoxic drugs including NSAIDs. Monitor labs. Assessment & Plan (01/10/2021 9:59 AM [employer] WORK[employer]): Avoid nephrotoxic drugs including NSAIDs. Monitor labs. Assessment & Plan (07/10/2020 8:59 PM CDT): Avoid nephrotoxic drugs including NSAIDs. Monitor labs. Assessment & Plan (01/04/2020 8:28 PM [employer] WORK[employer]): Avoid nephrotoxic drugs including NSAIDs. Monitor labs. Multiple thyroid nodules 12/21/2019 Assessment & Plan (08/06/2022 9:00 PM CDT): Continue per Dr. Breen she manages the thyroid nodules and thyroid levels Assessment & Plan (01/11/2022 9:13 AM [employer] WORKER): Continue per Dr. breen Assessment & Plan (12/21/2019 4:36 PM [employer] WORKER): Continue per Dr. Fong. 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 sin Assessment & Plan (01/11/2022 9:13 AM [employer] WORKER): Continue per Dr. breen Assessment & Plan (07/19/2021 9:02 AM CDT): Continue per Dr. Fong Assessment & Plan (01/10/2021 10:01 AM [employer] WORKER): Managed by Endocrine On Synthroid brand Assessment & Plan (07/10/2020 9:00 PM CDT): Continue levothyroxine Assessment & Plan (01/04/2020 8:29 PM [employer]): Continue synthroid. Labs stable. Assessment & Plan (12/21/2019 4:35 PM [employer] WORKER): Continue per Dr. Fong, endocrine. Elevated blood pressure read ing without diagnosis of hypertension 12/21/2019 Assessment & Plan (01/10/2021 10:02 AM [employer]): Continue to monitor readings. Still borderline Assessment & Plan (01/04/2020 8:31 PM [employer] WORK[employer]): Stable. Continue to monitor closely Assessment & Plan (12/21/2019 4:37 PM [employer]): This is a significant, separately identifiable problem that was evaluated and managed on the same day as the wellness exam Bp is elevated today. Difficult to know if true elevation or due to office visit. Encouraged ambulatory readings and will recheck at followup visit. Encouraged to limit sodium intake and exercise for weight control. Gastroesophageal reflux disease without esophagi tis 12/21/2019 Assessment & Plan (08/06/2022 9:01 PM CDT): Continue PPI Assessment & Plan (01/11/2022 9:13 AM [employer] WORK[employer]): Continue PPI. Assessment & Plan (07/19/2021 9:03 AM CDT): Stable with prn PPI Assessment & Plan (01/10/2021 9:59 AM [employer] WORK[employer]): Continue PPI Assessment & Plan (07/10/2020 8:59 PM CDT): Continue PPI If tightening continues, will return to Dr. Reynoso for possible EGD Assessment & Plan (01/04/2020 8:28 PM [employer]): Continue the PPI Assessment & Plan (12/21/2019 4:34 PM [employer] WORK[employer]): Continue PPI History of bilateral breast implants 12/21/2019 Assessment & Plan (01/10/2021 10:04 AM [employer] WORKER): Patient states Dr. Caldwell and Dr. Scruggs are working on her possible implants leaking vs ripple etc. She will keep us up to date. Assessment & Plan (07/10/2020 9:00 PM CDT): Continue per Dr. Scruggs Assessment & Plan (01/04/2020 8:30 PM [employer] WORKER): Continue per Dr. Healy Age-related osteoporosis wit hout current pathological fracture 12/21/2019 Assessment & Plan (08/06/2022 9:01 PM CDT): Continue Fosamax calcium vitamin-D and exercise. Dex is monitored by Assessment & Plan (01/11/2022 9:13 AM [employer] WORKER): Continue per Dr. breen. She is tolerating the Fosamax. Encouraged calcium vitamin-D and exercise. Assessment & Plan (07/19/2021 9:04 AM CDT): Continue calcium and vitamin D. Request DXA -- she states she plans to review with Dr. Fong at her next visit. Assessment & Plan (01/10/2021 10:01 AM [employer] WORKER): Dr. Caldwell/[employer] manages fosamax and DXA. Assessment & Plan (07/10/2020 8:59 PM CDT): Continue fosamax Encourage calcium, vitamin D and weight bearing exercise to maintain the good bone strength. Assessment & Plan (01/04/2020 8:28 PM [employer] WORK[employer]): Continue with Fosamax. Dr. Caldwell manages Assessment & Plan (12/21/2019 4:35 PM [employer]): Continue Fosomax and calcium, vitD and exercise. Stress 12/21/2019 Assessment & Plan (07/10/2020 9:01 PM CDT): Continue to montior. States ok currently without medication Assessment & Plan (01/04/2020 8:30 PM [employer] WORK[employer]): Pt feels like all is stable. Wants to continue to monitor without meds. Assessment & Plan (12/21/2019 4:38 PM [employer] WORKER): She declines medication at this point but will continue to monitor closely Miranda's disease 12/21/2019 Assessment & Plan (12/21/2019 4:35 PM [employer] WORKER): Managed by Endocrine Dr. Fong. Continue levothyroxine Hyperglycemia 11/25/2019 Assessment & Plan (08/06/2022 9:00 PM CDT): Pre-diabetes/hyperglycemia is a precursor to Dm. Stressed importance of working on diet (decrease your simple sugars and one carbohydrate with each meal) and increase you exercise to achieve weight loss and this will help prevent you from progressing to diabetes. Assessment & Plan (01/11/2022 9:13 AM [employer] WORK[employer]): Monitor labs. Continue activity and weight loss. Assessment & Plan (07/19/2021 9:02 AM CDT): Pre-diabetes/hyperglycemia is a precursor to Dm. Stressed importance of working on diet (decrease your simple sugars and one carbohydrate with each meal) and increase you exercise to achieve weight loss and this will help prevent you from progressing to diabetes. Recheck labs since she has last 30#s Assessment & Plan (01/10/2021 10:01 AM [employer] WORK[employer]): Pre-diabetes is a precursor to Dm. Stressed importance of working on diet (decrease your simple sugars and one carbohydrate with each meal) and increase you exercise to achieve weight loss and this will help prevent you from progressing to diabetes. Assessment & Plan (07/10/2020 8:59 PM CDT): Pre-diabetes/hyperglydemia is a precursor to Dm. Stressed importance of working on diet (decrease your simple sugars and one carbohydrate with each meal) and increase you exercise to achieve weight loss and this will help prevent you from progressing to diabetes. Assessment & Plan (01/04/2020 8:29 PM [employer] WORK[employer]): A1c is normal Assessment & Plan (12/21/2019 4:35 PM [employer] WORK[employer]): This is a significant, separately identifiable problem that was evaluated and managed on the same day as the wellness exam Pre-diabetes is a precursor to Dm. Stressed importance of working on diet (decrease your simple sugars and one carbohydrate with each meal) and increase you exercise to achieve weight loss and this will help prevent you from progressing to diabetes. Mixed hyperlipidemia 11/25/2019 Assessment & Plan (08/06/2022 9:00 PM CDT): Encouraged patient to follow low fat/low chol diet like the Mediterranean diet. Increase good fats in the diet. Increase exercise. Monitor labs as needed. Assessment & Plan (01/11/2022 9:13 AM [employer] WORKER): Encouraged patient to follow fat/low chol diet like the Mediterranean diet. Increase good fats in the diet. Increase exercise. Monitor labs as needed. Assessment & Plan (07/19/2021 9:02 AM CDT): Encouraged patient to follow fat/low chol diet like the Mediterranean diet. Increase good fats in the diet. Increase exercise. Monitor labs as needed. Diet mangement at this point Assessment & Plan (07/10/2020 9:00 PM CDT): Encouraged patient to continue low fat/low chol diet. Continue exercise. Increase good fats in the diet. Monitor labs as needed. Assessment & Plan (01/04/2020 8:28 PM [employer] WORKER): Encouraged patient to continue low fat/low chol diet. Continue exercise. Increase good fats in the diet. Monitor labs as needed. Assessment & Plan (12/21/2019 4:36 PM [employer] WORKER): Encouraged patient to continue low fat/low chol diet. Continue exercise. Increase good fats in the diet. Monitor labs as needed. Resolved Problems Problem Noted Date Diagnosed Date Resolved Date Obesity (BMI 30-39.9) 07/19/20212021 Assessment & Plan (07/19/2021 8:38 AM CDT): Obesity is improved. Discussed the patient's BMI. The BMI is above average. BMI management plan is completed. BMI Follow-up includes: nutrition counseling, exercise counseling and education provided. BMI 30.0-30.9,adult 07/19/2021 01/12/20 22 Assessment & Plan (07/19/2021 8:38 AM CDT): Obesity is improved Discussed the patient's BMI. The BMI is above average. BMI management plan is completed. BMI Follow-up includes: nutrition counseling, exercise counseling and education provided. Obesity (BMI 30-39.9) 01/10/20212020 Assessment & Plan (01/10/2021 8:15 AM [employer] WORKER): Obesity is unchanged. Discussed the patient's BMI. The BMI is above average. BMI management plan is completed. BMI Follow-up includes: nutrition counseling, exercise counseling and education provided. BMI 33.0-33.9,adult 01/10/2021 07/19/20 21 Assessment & Plan (01/10/2021 8:16 AM [employer] WORKER): Obesity is unchanged. Discussed the patient's BMI. The BMI is above average. BMI management plan is completed. BMI Follow-up includes: nutrition counseling, exercise counseling and education provided. Annual physical exam 07/05/2020 022 Assessment & Plan (07/19/2021 9:05 AM CDT): Encouraged healthy lifestyle, good nutrition and exercise. Encouraged Calcium and Vitamin D and weight bearing exercise for bone health. Reviewed immunizations Reviewed age appropirate screenings. Assessment & Plan (07/10/2020 9:01 PM CDT): Encouraged healthy lifestyle, good nutrition and exercise. Encouraged Calcium and Vitamin D and weight bearing exercise for bone health. Reviewed immunizations Reviewed age appropirate screenings. BMI 34.0-34.9,adult 01/01/2020 01/11/20 21 Assessment & Plan (07/10/2020 9:01 PM CDT): Obesity is unchanged. Discussed the patient's BMI. The BMI is above average. BMI management plan is completed. BMI Follow-up includes: nutrition counseling, exercise counseling and education provided. Assessment & Plan (01/01/2020 8:48 AM [employer] WORK[employer]): Obesity is unchanged. Discussed the patient's BMI. The BMI is above average. BMI management plan is completed. BMI Follow-up includes: nutrition counseling, exercise counseling and education provided. Medicare annual wellness visit, initial 12/21/2019 01/01/2020 Assessment & Plan (12/21/2019 4:37 PM [employer]): Encouraged healthy lifestyle, good nutrition and exercise. Encouraged Calcium and Vitamin D and weight bearing exercise for bone health. Reviewed immunizations Reviewed age appropirate screenings. Documentation is on the chart Need for 23-polyvalent pneum ococcal polysaccharide vaccine 12/21/2019 01/01/2020 Assessment & Plan (12/21/2019 4:37 PM [employer]): Updated in office today Positive depression screening 12/21/2019 01/01/2020 Assessment & Plan (12/21/2019 4:39 PM [employer]): See stress. May be situational. Monitor closely BMI 34.0-34.9,adult 11/25/2019 01/01/20 Assessment & Plan (12/21/2019 4:36 PM [employer]): Obesity is unchanged. Discussed the patient's BMI. The BMI is above average. BMI management plan is completed. BMI Follow-up includes: nutrition counseling, exercise counseling and education provided. Obesity (BMI 30-39.9) 11/25/20192020 Assessment & Plan (07/10/2020 8:58 PM CDT): Obesity is unchanged. Discussed the patient's BMI. The BMI is above average. BMI management plan is completed. BMI Follow-up includes: nutrition counseling, exercise counseling and education provided. Assessment & Plan (01/01/2020 8:48 AM [employer] WORK[employer]): Obesity is unchanged. Discussed the patient's BMI. The BMI is above average. BMI management plan is completed. BMI Follow-up includes: nutrition counseling, exercise counseling and education provided. Assessment & Plan (12/21/2019 4:34 PM [employer]): Obesity is unchanged. Discussed the patient's BMI. The BMI is above average. BMI management plan is completed. BMI Follow-up includes: nutrition counseling, exercise counseling and education provided. Other fatigue 11/25/2019 01/01/2020 Assessment & Plan (12/21/2019 4:37 PM [employer]): Probably multifactorial. Check labs and followup to re-evaluate Immunizations Immunization Administration Dates Next Due Flucelvax Influenza Quad MDI 09/01/2015 Influenza, Quadrivalent, Hig h Dose, Preservative Free, Intrr 08/20/2020 Influenza, Trivalent, High D ose, Split, Preservative Free, Intramuscular 07/23/2019,07/29/2018,09/14/2017 Influenza, Trivalent, IM (MDV) 07/13/2018,2015 Influenza, Unspecified 01/11/2022(Deferr ed: Patient Refused),11/12/2020(Deferred: Patient Refused) Moderna SARS-CoV-2 Monovalen t Vaccination (12+ YRS) 02/02/2021,01/05/2021 Pneumococcal Conjugate PCV 13 07/29/2018, 018 Pneumococcal Polysaccharide PPV23 11/25/2019 Tdap 11/12/2014 ZOSTER Recombinant 11/06/2019,07/23/2019 Surgical History Surgery Date Site/Laterality Comments TRANSUMBILICAL AUGMENTATION MAMMAPLASTY REVISION TOTAL KNEE ARTHROPLASTY Right DILATION AND CURETTAGE OF UTERUS Family History Medical History Relation Name Comments Heart disease Father Hypertension Father Arthritis Mother Breast cancer Mother Colon cancer Mother Osteoporosis Mother Relation Name Status Comments Father Mother Social History Tobacco Use Types Packs/Day Years [...] on file Legal Sex Female 6:32 PM [employer] WORK[employer] Gender Identity Not on file Sexual Orientation Not on file Occupation Industry Job Start Date Job End Date Retired Not on file Not on file Not on file Obstetrics History Last Filed Vital Signs Vital Sign Reading Time Taken Comments Blood Pressure 152/86 07/24/2022 8:39 AM CDT Pulse 72 07/24/2022 8:39 AM CDT Temperature 36.7 C (98.1 F) 07/24/2022 8:39 AM CDT Respiratory Rate - - Oxygen Saturation 99% 07/24/2022 8:39 AM CDT Inhaled Oxygen Concentration - - Weight 79.4 kg (175 lb) 07/24/2022 8:39 AM CDT Height 165.1 cm (5' 5 ) 07/24/2022 8:39 AM CDT Body Mass Index 29.12 07/24/2022 8:39 AM CDT Plan of Treatment Health Maintenance Due Date Last Done Comments Hepatitis C Screening 1950 Hepatitis B Screening 1970 Osteoporosis Screening-Bone Density Scan 04/20/2023 04/20/2021, 01/10/2019 Breast Cancer Screening-Mammogram 04/24/2023 04/24/2022, 04/20/2021, 01/10/2019 Depression Screening 07/24/2023 07/24/2022, 01/11/2022, 07/19/2021, Additional history exists Fall Risk Assessment 07/24/2023 07/24/2022, 01/11/2022, 07/19/2021, Additional history exists Well Visit 65+ 07/24/2023 07/24/2022, 12/2021, 07/19/2021, Additional history exists Colon Cancer Screening-Colonoscopy 02/01/2024 01/31/2019 Covid-19 Vaccine (3 - 2023-2 5 season) 2024 02/02/2021, 01/05/2021 Influenza Vaccine (#1) 2024 0, 07/23/2019, 07/29/2018, Additional history exists DTaP/Tdap/Td Vaccine (2 - Td or Tdap) 11/12/2024 11/12/2014 Colon Cancer Screening-CT Colonography Discontinued 01/31/2019 Colon Cancer Screening-DNA Stool Discontinued 02/01/20 19 Colon Cancer Screening-FIT Discontinued 01/31/2019 Colon Cancer Screening-Sigmoidoscopy Discontinued 01/31/2019 Zoster Vaccine Completed 11/06/2019, 07/23/2019 Pneumococcal vaccine 65+ Completed 020, 07/29/2018, 07/13/2018 Procedures Procedure Name Priority Date/Time Associated Diagnosis Comments SCREENING MAMMOGRAM BILATERAL W DEL Schedule Routine, Read Routine (OP Routine) 04/24/2022 DEXA SCAN Routine 04/20/2021 COLONOSCOPY Routine 01/31/2019 from Last 3 Months or Most Recently Relevant to Health Maintenance Results * Screening Mammogram Bilateral W Del (04/24/2022) Anatomical Region Laterality Modality Breast Bilateral Mammography Chelsey Haque [facility] MAMMO PROC EDURES Final Result * DEXA SCAN (04/20/2021) Historical Provider HEALTH MAINTENANCE Final Result * COLONOSCOPY (01/31/2019) Colonoscopy Abnormal Comment:Reynoso-Family HX Historical Provider HEALTH MAINTENANCE Final Result from Last 3 Months or Most Recently Relevant to Health Maintenance Insurance MEDICARE SOLUTIONS Care Teams Market Research Intern Relationship Specialty Start Date End Date Kierra Olivia PA [address] [facility] [address] [place] [address] PCP - General Internal Medicine 09/29/19
--- OUTSIDE RECORDS SUMMARY | 2025-01-26 15:40 | XMS_ITS | CONTINUITY OF CARE DOCUMENT ---
Author Name fransisco moody Address Unknown Organization [facility] Address [address] [place] [address] [address] [place] [address] Phone [phone] Care Team Providers Care Department Director Name Role Phone José Luis SANZ, Esvin Unavailable GALDINO HARRELL MD Unavailable [phone] ANDI SANZ, RIMA [place] Unavailable [phone] PROBLEMS Condition Status Date Provider Notes Long-term (current) use of other medications active 03/09/20 Philip Rodriguez RN GERD active Esvin Ordonez MD HTN essential--echo normal ef 60%, 06/2021 active 2020 Esvin Ordonez MD Hypothyroidism active Esvin Ordonez MD Hyperlipidemia, not on meds active Esvin gresham MD Palpitations active Esvin Ordonez MD Chest pain CA score zero 06/2021 active Kevin Ordonez MD Lung nodule mm Left lower lo be On CT needs F/up active Esvin Ordonez MD ENCOUNTERS Date Type Provider Location Encounter Diag nosis - In-person encounter Office Visit Esvin Ordonez MD [facility] - In-person encounter Office Visit Esvin Ordonez MD [facility] - In-person encounter Office Visit Esvin Ordonez MD [facility] - In-person encounter Office Visit Esvin Ordonez MD [facility] - In-person encounter Office Visit Esvin Ordonez MD [facility] HTN essential--echo normal ef 60%, alpitationsChest pain CA score zero ung nodule mm Left lower lobe On CT needs F/up - In-person encounter Office Visit Esvin Ordonez MD [facility] GERDHTN essential--echo normal ef 60%, 06/2021HypothyroidismHyp erlipidemia, not on medsPalpitations VITAL SIGNS Date Observation Value Provider Body Mass Index (Ratio) 32.11 kg/m2 Kevin Ordonez MD oxygen saturation, oximetry 99 % Orion sarazai pulse rate 64 /min Orion sarazai blood pressure, diastolic 78 mm[Hg] Ri az medzai blood pressure, systolic 160 mm[Hg] Gloria z medzai weight E&M 193 [lb_av] Orion Ahmedzai Body Mass Index (Ratio) 30.45 kg/m2 Kevin Ordonez MD blood pressure, diastolic 72 mm[Hg] Reanna nkLogic blood pressure, systolic 159 mm[Hg] Carolee kLogic blood pressure, cuff size regular Ja rret blood pressure, diastolic 72 mm[Hg] Ja rret blood pressure, systolic 159 mm[Hg] Jar ret pulse rate 54 /min Mauro y oxygen saturation, oximetry 99 % Mauro respiratory rate E&M 12 /min Mauro weight E&M 183 [lb_av] Mauro y height E&M 65 [in_i] Mauro y Body Mass Index (Ratio) 30.28 kg/m2 Kevin Ordonez MD blood pressure, diastolic 83 mm[Hg] [facility] radha [facility] blood pressure, systolic 161 mm[Hg] Bobby gayle [facility] blood pressure, cuff size large [facility] garcia [facility] oxygen saturation, oximetry 98 % Lois Chamberlainman respiratory rate E&M 16 /min Melvin ie [facility] pulse rate 68 /min Lois Lohma n weight E&M 182 [lb_av] Lois Lohma n height E&M 65 [in_i] Losi Lohma n Body Mass Index (Ratio) 30.12 kg/m2 Kevin Ordonez MD blood pressure, diastolic 80 mm[Hg] Sa ra Marroquin blood pressure, systolic 149 mm[Hg] Lana a Marroquin oxygen saturation, oximetry 99 % Grecia Marroquin respiratory rate E&M 19 /min Grecia Si ms pulse rate 71 /min Grecia Marroquin blood pressure, cuff size regular Sa ra Marroquin weight E&M 181 [lb_av] Grecia Marroquin height E&M 65 [in_i] Grecia Marroquin Body Mass Index (Ratio) 30.45 kg/m2 Kevin Ordonez MD blood pressure, cuff size large Ke rri Gruenenfelder blood pressure, diastolic 80 mm[Hg] Ke rri Gruenenfelder blood pressure, systolic 130 mm[Hg] Joe Rowe oxygen saturation, oximetry 98 % Maricruz Rowe respiratory rate E&M 16 /min Maricruz heath pulse rate 61 /min Maricruz grissom weight E&M 183 [lb_av] Maricruz Estevez er height E&M 65 [in_i] Maricruz Estevez er Body Mass Index (Ratio) 30.78 kg/m2 Kevin Ordonez MD blood pressure, diastolic 84 mm[Hg] Li nkLogic blood pressure, systolic 150 mm[Hg] Carolee kLogic blood pressure, diastolic 84 mm[Hg] Sh erkeitha Hoffmann blood pressure, systolic 150 mm[Hg] She rkeitjanette KumarHoffmann blood pressure, resting Yes [facility] esperanza Kumarford oxygen saturation, oximetry 98 % [facility] Hoffmann pulse rate 74 /min [facility] Kumar hussein respiratory rate E&M 20 /min [facility] [place] weight E&M 185 [lb_av] [facility] Craw hussein height E&M 65 [in_i] [facility] Craw hussein ALLERGIES No Known Drug Allergies RESULTS Date Observation Value Provider Reference Range Interpretation Location folate, serum 5.1 ng/mL [facility] Low 5 B-12, serum 474 pg/mL [facility] 200-1100 Normal alanine aminotransferase (SGPT), serum 14 1/L [facility] 6-29 Normal aspartate aminotransferase (SGOT), serum 16 1/L [facility] 10-35 Normal alkaline phosphatase, serum 66 1/L [facility] 37-153 Normal bilirubin, serum, total 1.0 mg/dL [facility] 0.2-1.2 Normal albumin/globulin ratio, serum 1.7 (calc) [facility] 1.0-2.5 Normal globulins, serum, total 2.6 G/DL (CALC) [facility] 1.9-3.7 Normal albumin, serum 4.4 g/dL [facility] 3.6-5.1 Normal protein, total, serum 7.0 g/dL [facility] 6.1-8.1 Normal calcium, serum 9.6 mg/dL [facility] 8.6-10.4 Normal carbon dioxide, venous blood 28 mmol/L [facility] 20-32 Normal chloride, serum 108 mmol/L [facility] 98-110 Normal potassium, serum 4.9 mmol/L [facility] 3.5-5.3 Normal sodium, serum 142 mmol/L [facility] 135-146 Normal urea nitrogen/creatinine ratio, serum 20 (calc) [facility] 6-22 Normal creatinine, serum 1.07 mg/dL [facility] 0.60-1.00 High urea nitrogen, blood 21 mg/dL [facility] 7-25 Normal blood glucose, random 90 mg/dL [facility] 65-99 Normal thyroxine, serum, free 0.8 ng/dL [facility] 0.8-1.8 Normal thyroid stimulating hormone, serum 1.74 u[IU]/mL [facility] 0.40-4.50 Normal cholesterol, non-HDL, total 113 MG/DL (CALC) [facility] <130 Normal cholesterol/HDL ratio, serum, percent 3.0 (calc) [facility] <5.0 Normal LDL cholesterol, serum 94 MG/DL (CALC) [facility] Normal triglyceride, serum, fasting 97 mg/dL [facility] <150 Normal HDL cholesterol, serum 56 mg/dL [facility] > OR = 50 Normal cholesterol, serum 169 mg/dL [facility] <200 Normal hemoglobin A1C, blood, as % of total hemoglobin 5.0 % OF TOTAL HGB [facility] <5.7 Normal triiodothyronine (T3), serum 140 ng/dL [facility] 76-181 Normal HISTORY OF MEDICATION USE Medication Status Instructions Dates Provider Indications Com ments liothyronine 5 mcg tablet active Orion Varela atorvastatin 20 mg tablet active Take 1 tablet by mouth once a day Meenakshi Preciado RN atorvastatin 20 mg tablet completed Take 1 tablet by mouth once a day TAKE ONE TABLET BY MOUTH DAILY AT BEDTIME. - Maricruz Rowe TYLENOL CAPSULE completed as needed - Meenakshiulices Pinedaglia [facility] vits A and D-white pet-lanolin ointment completed - Orion Varela BONINE 25 MG CHEW completed - Orion Varela omeprazole 40 mg capsule,delayed release(/EC) completed - Orion Varela montelukast 10 mg tablet completed - Meenakshi Schmid [facility] Synthroid 50 mcg tablet active Willem Hoffmann #90, 90 days supply, Prescribed by GALDINO HARRELL, Filled 03/15/2021 Fosamax 70 mg tablet active Willem Hoffmann #12, 84 days supply, Prescribed by SHEA JANG, Filled 05/03/2021 lisinopril 10 mg tablet completed - Willem Hoffmann #90, 90 days supply, Prescribed by GALDINO HARRELL, Filled 05/11/2021 SOCIAL HISTORY Date Observation Value Provider drug use no Orion Varela alcohol use no Orion Varela smoking status Never smoker Orion Benavideszanoreen drug use no Meenakshi Cabanmig yary REHABILITATION COORDINATOR alcohol use no Meenakshi Ventimig yary REHABILITATION COORDINATOR smoking status Never smoker Meenakshi Cabanm iglia [facility] social history reviewed E&M revi ewed - no changes required Orion Varela social history E&M S moking History: Bobo sepulveda has never smoked. Esvin Ordonez MD social history reviewed E&M revi ewed - no changes required Esvin Ordonez MD smoking status Never smoker Lois gloria social history reviewed E&M revi ewed - no changes required Orion Varela smoking status Never smoker Maricruz adames social history E&M S moking History: P derick has never smoked. Orion Varela social history reviewed E&M revi ewed - no changes required Orion Varela smoking status Never smoker Esvin Ordonez MD social history reviewed E&M revi ewed - no changes required Esvin Ordonez MD social history E&M S moking History: Bobo sepulveda has never smoked. Esvin Ordonez MD FAMILY HISTORY Family Member Condition Maternal Grandfather Family History Shahida st Cancer: Mother Family History of Co ronary Artery Disease: Father Family History of Co ngestive Heart Failure: INSURANCE PROVIDERS Payer name Policy type / Coverage type [place] [employer] [facility] MEDICARE ADVANTAGE PLAN (PPO) Medicare [id number] ADVANCE DIRECTIVES Name Date DISCUSSED - NO DECISION MADE TREATMENT PLAN Date Name Performer [id number],C,E ncouraged her to resume PPI in setting of possible stricture. H er updated medication list for this problem includes: Omeprazole 40 Mg Capsule,delayed Release(dr/ec) (Omeprazole) Meenakshi Ventimiglia [facility] [id number],S,o n replacement. Will update TSH H er updated medication list for this problem includes: Synthroid 50 Mcg Tablet (Levothyroxine) Meenakshi Ventimiglia [facility] [id number],C,O n statin now. Will update lipids H er updated medication list for this problem includes: Atorvastatin 20 Mg Tablet (Atorvastatin) ..... Take 1 tablet by mouth once a day take one tablet by mouth daily at bedtime. Meenakshi Schmid [facility] [id number],S,follow up CT chest in one year Meenakshi Schmid [facility] [id number],S,n otes after taking lipitor. She also reports feeling as though food as sticking when eating. Concern that may be r/t stricture as she has history. Have referred her back to CHELITA deng. O rders: 9 9214 MOD 30-39min (CPT-73147) C OMPREHENSIVE METABOLIC PANEL, W/EGFR (51641) L IPID PANEL (7600) T SH, free T4, total T3 (7444) H EMOGLOBIN A1c (496) Meenakshi Schmid [facility] [id number],C, Esvin Ordonez MD [id number],B, Esvin Ordonez MD [id number],B, Esvin Ordonez MD [id number],W, Esvin Ordonez MD [id number],C, Esvin Ordonez MD [id number],S, Orion Ahmedza i [id number],S, Orion Ahmedza i [id number],S, Orion Ahmedza i [id number],S, Orion Ahmedza i [id number],S, Orion Ahmedza i [id number],S, Orion Ahmedza i [id number],S, Orion Ahmedza i [id number],S, Orion Ahmedza i [id number],S, Orion Ahmedza i [id number],S, Orion Adams i [id number],S, Orion Adams i [id number],W, Esvin Ordonez MD [id number],S, Esvin Ordonez MD [id number],S,E levated, was just started on lisinopril, recommended to monitor BP at home B P today: 150/84 Her updated medication list for this problem includes: Lisinopril 10 Mg Oral Tablet (Lisinopril) Esvin Ordonez MD [id number],S, H er updated medication list for this problem includes: Synthroid 50 Mcg Oral Tablet (Levothyroxine sodium) Esvin Ordonez MD Cardiology Orion Varela Cardiology Orion Varela Cardiology: H er updated medication list for this problem includes: Atorvastatin 20 Mg Tablet (Atorvastatin) ..... Take 1 tablet by mouth once a day Orion Varela Cardiology: H er updated medication list for this problem includes: Liothyronine 5 Mcg Tablet (Liothyronine) Synthroid 50 Mcg Tablet (Levothyroxine) Orion Varela Cardiology: P rior BP: 159/72 (07/10/2023) Labs Reviewed: C reat: 1.07 (08/16/2023) C hol: 169 (08/16/2023) HDL: 56 (08/16/2023) LDL: 94 MG/DL (CALC) (08/16/2023) T (08/16/2023) Orion Varela Cardiology:Encourage d her to resume PPI in setting of possible stricture. H er updated medication list for this problem includes: Omeprazole 40 Mg Capsule,delayed Release(dr/ec) (Omeprazole) Meenakshi Cabanmigljose l [facility] Cardiology:on replac ement. Will update TSH H er updated medication list for this problem includes: Synthroid 50 Mcg Tablet (Levothyroxine) Meenakshi Schmid [facility] Cardiology:On statin now. Will update lipids H er updated medication list for this problem includes: Atorvastatin 20 Mg Tablet (Atorvastatin) ..... Take 1 tablet by mouth once a day take one tablet by mouth daily at bedtime. Meenakshi Schmid [facility] Cardiology:follow up CT chest in one year Meenakshi Schmid [facility] Cardiology:notes aft er taking lipitor. She also reports feeling as though food as sticking when eating. Concern that may be r/t stricture as she has history. Have referred her back to CHELITA deng. Orders: 9 9214 MOD 30-39min (CPT-14967) C OMPREHENSIVE METABOLIC PANEL, W/EGFR (13751) L IPID PANEL (7600) T SH, free T4, total T3 (7444) H EMOGLOBIN A1c (496) Meenakshi Pinedacarolin [facility] Cardiology Esvin Ordonez MD Cardiology Esvin Ordonez MD Cardiology Esvin Ordonez MD Cardiology Esvin Ordonez MD Cardiology Esvin Ordonez MD Cardiology Orion Ahmedzai Cardiology Orion Ahmedzai Cardiology Orion Ahmedzai Cardiology Orion Ahmedzai Cardiology Orion Ahmedzai Cardiology Orion Ahmedzai Cardiology Orion Ahmedzai Cardiology Orion Ahmedzai Cardiology Orion Ahmedzai Cardiology Orion Ahmedzai Cardiology Orion Ahmedzai Cardiology Esvin Ordonez MD Cardiology Esvin Ordonez MD Cardiology:Elevated, was just started on lisinopril, recommended to monitor BP at home B P today: 150/84 Her updated medication list for this problem includes: Lisinopril 10 Mg Oral Tablet (Lisinopril) Esvin Ordonez MD Cardiology: H er updated medication list for this problem includes: Synthroid 50 Mcg Oral Tablet (Levothyroxine sodium) Esvin Ordonez MD Date Name CT Chest without con trast Low Dose Lung CT HEMOGLOBIN A1c TSH, free T4, total T3 LIPID PANEL COMPREHENSIVE METABO LIC PANEL, W/EGFR CT Chest without con trast Low Dose Lung CT CT Chest without con trast Low Dose Lung CT Complete Echo CT, Coronary Calcium Score Complete Echo Monitor - Telemetry (Mobile Cardiac) HISTORY OF PROCEDURES Procedure Date Procedure Name Provider Procedure Notes S tatus Counseling LDCT Esvin Ordonez MD comp leted EKG Esvin Ordonez MD completed Mobile Cardiac Telem etry - Tech Esvin Ordonez MD completed Mobile Cardiac Telem etry - Prof Esvin Ordonez MD completed CT- Coronary CA score Esvin Ordonez MD completed EKG Esvin Ordonez MD completed
--- OUTSIDE RECORDS SUMMARY | 2025-01-26 15:40 | XMS_ITS | Referral Summary ---
Author Organization [facility] [place] [address] [facility] Address [address] [place] [address] Care Team Providers Care Solution Developer Name Role Phone Kierra Olivia Primary Care Provider [phone]- [phone] Allergies No known active allergies Medications alendronate [...] maintain. Assessment & Plan (01/11/2022 8:27 AM PRINTING PLATE MAKER): Weight/BMI is in healthy range. Continue healthy lifestyle to maintain. Medicare annual wellness visit, subsequent 01/09 Assessment & Plan (01/11/2022 9:14 AM PRINTING PLATE MAKER): Encouraged healthy lifestyle, good nutrition and exercise. [...] screenings. Assessment & Plan (01/09/2021 9:17 PM PRINTING PLATE MAKER): Encouraged healthy lifestyle, good nutrition and exercise. [...] labs. Assessment & Plan (01/11/2022 9:14 AM PRINTING PLATE MAKER): Kidney function with continued stability. Continue to avoid renal toxic drugs. Assessment & Plan (07/19/2021 9:03 AM CDT): Avoid nephrotoxic drugs including NSAIDs. Monitor labs. Assessment & Plan (01/10/2021 9:59 AM PRINTING PLATE MAKER): Avoid nephrotoxic drugs including NSAIDs. Monitor labs. Assessment & Plan (07/10/2020 8:59 PM CDT): Avoid nephrotoxic drugs including NSAIDs. Monitor labs. Assessment & Plan (01/04/2020 8:28 PM PRINTING PLATE MAKER): Avoid nephrotoxic drugs including NSAIDs. Monitor labs. Multiple thyroid nodules 12/21/2019 Assessment & Plan (08/06/2022 9:00 PM CDT): Continue per Dr. Breen she manages the thyroid nodules and thyroid levels Assessment & Plan (01/11/2022 9:13 AM PRINTING PLATE MAKER): Continue per Dr. breen Assessment & Plan (12/21/2019 4:36 PM PRINTING PLATE MAKER): Continue per Dr. Fong. 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 sin Assessment & Plan (01/11/2022 9:13 AM PRINTING PLATE MAKER): Continue per Dr. breen Assessment & Plan (07/19/2021 9:02 AM CDT): Continue per Dr. Fong Assessment & Plan (01/10/2021 10:01 AM PRINTING PLATE MAKER): Managed by Endocrine On Synthroid brand Assessment & Plan (07/10/2020 9:00 PM CDT): Continue levothyroxine Assessment & Plan (01/04/2020 8:29 PM PRINTING PLATE MAKER): Continue synthroid. Labs stable. Assessment & Plan (12/21/2019 4:35 PM PRINTING PLATE MAKER): Continue per Dr. Fong, endocrine. Elevated blood pressure read ing without diagnosis of hypertension 12/21/2019 Assessment & Plan (01/10/2021 10:02 AM PRINTING PLATE MAKER): Continue to monitor readings. Still borderline Assessment & Plan (01/04/2020 8:31 PM PRINTING PLATE MAKER): Stable. Continue to monitor closely Assessment & Plan (12/21/2019 4:37 PM PRINTING PLATE MAKER): This is a significant, separately identifiable problem [...] PPI Assessment & Plan (01/11/2022 9:13 AM PRINTING PLATE MAKER): Continue PPI. Assessment & Plan (07/19/2021 9:03 AM CDT): Stable with prn PPI Assessment & Plan (01/10/2021 9:59 AM PRINTING PLATE MAKER): Continue PPI Assessment & Plan (07/10/2020 8:59 PM CDT): Continue PPI If tightening continues, will return to Dr. Reynoso for possible EGD Assessment & Plan (01/04/2020 8:28 PM PRINTING PLATE MAKER): Continue the PPI Assessment & Plan (12/21/2019 4:34 PM PRINTING PLATE MAKER): Continue PPI History of bilateral breast implants 12/21/2019 Assessment & Plan (01/10/2021 10:04 AM PRINTING PLATE MAKER): Patient states Dr. Caldwell and Dr. Scruggs are working on her possible implants leaking vs ripple etc. She will keep us up to date. Assessment & Plan (07/10/2020 9:00 PM CDT): Continue per Dr. Scruggs Assessment & Plan (01/04/2020 8:30 PM PRINTING PLATE MAKER): Continue per Dr. Healy Age-related osteoporosis wit hout current pathological fracture 12/21/2019 Assessment & Plan (08/06/2022 9:01 PM CDT): Continue Fosamax calcium vitamin-D and exercise. Dex is monitored by Assessment & Plan (01/11/2022 9:13 AM PRINTING PLATE MAKER): Continue per Dr. breen. She is tolerating the Fosamax. Encouraged calcium vitamin-D and exercise. Assessment & Plan (07/19/2021 9:04 AM CDT): Continue calcium and vitamin D. Request DXA -- she states she plans to review with Dr. Fong at her next visit. Assessment & Plan (01/10/2021 10:01 AM PRINTING PLATE MAKER): Dr. Caldwell/QUALITY ASSURANCE MANAGER manages fosamax and DXA. Assessment & Plan (07/10/2020 8:59 PM CDT): Continue fosamax Encourage calcium, vitamin D and weight bearing exercise to maintain the good bone strength. Assessment & Plan (01/04/2020 8:28 PM PRINTING PLATE MAKER): Continue with Fosamax. Dr. Caldwell manages Assessment & Plan (12/21/2019 4:35 PM PRINTING PLATE MAKER): Continue Fosomax and calcium, vitD and exercise. Stress 12/21/2019 Assessment & Plan (07/10/2020 9:01 PM CDT): Continue to montior. States ok currently without medication Assessment & Plan (01/04/2020 8:30 PM PRINTING PLATE MAKER): Pt feels like all is stable. Wants to continue to monitor without meds. 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 Fong. Continue levothyroxine Hyperglycemia 11/25/2019 Assessment & Plan (08/06/2022 9:00 PM CDT): Pre-diabetes/hyperglycemia is a precursor to Dm. Stressed importance of working on diet (decrease your simple sugars and one carbohydrate with each meal) and increase you exercise to achieve weight loss and this will help prevent you from progressing to diabetes. Assessment & Plan (01/11/2022 9:13 AM PRINTING PLATE MAKER): Monitor labs. Continue activity and weight loss. [...] 30#s Assessment & Plan (01/10/2021 10:01 AM PRINTING PLATE MAKER): Pre-diabetes is a precursor to Dm. Stressed [...] diabetes. Assessment & Plan (01/04/2020 8:29 PM PRINTING PLATE MAKER): A1c is normal Assessment & Plan (12/21/2019 4:35 PM PRINTING PLATE MAKER): This is a significant, separately identifiable problem [...] needed. Assessment & Plan (01/11/2022 9:13 AM PRINTING PLATE MAKER): Encouraged patient to follow fat/low chol diet [...] needed. Assessment & Plan (01/04/2020 8:28 PM PRINTING PLATE MAKER): Encouraged patient to continue low fat/low chol diet. Continue exercise. Increase good fats in the diet. Monitor labs as needed. Assessment & Plan (12/21/2019 4:36 PM PRINTING PLATE MAKER): Encouraged patient to continue low fat/low chol [...] 01/10/20212020 Assessment & Plan (01/10/2021 8:15 AM PRINTING PLATE MAKER): Obesity is unchanged. Discussed the patient's BMI. The BMI is above average. BMI management plan is completed. BMI Follow-up includes: nutrition counseling, exercise counseling and education provided. BMI 33.0-33.9,adult 01/10/2021 07/19/20 21 Assessment & Plan (01/10/2021 8:16 AM PRINTING PLATE MAKER): Obesity is unchanged. Discussed the patient's BMI. [...] provided. Assessment & Plan (01/01/2020 8:48 AM PRINTING PLATE MAKER): Obesity is unchanged. Discussed the patient's BMI. The BMI is above average. BMI management plan is completed. BMI Follow-up includes: nutrition counseling, exercise counseling and education provided. Medicare annual wellness visit, initial 12/21/2019 01/01/2020 Assessment & Plan (12/21/2019 4:37 PM PRINTING PLATE MAKER): Encouraged healthy lifestyle, good nutrition and exercise. Encouraged Calcium and Vitamin D and weight bearing exercise for bone health. Reviewed immunizations Reviewed age appropirate screenings. Documentation is on the chart Need for 23-polyvalent pneum ococcal polysaccharide vaccine 12/21/2019 01/01/2020 Assessment & Plan (12/21/2019 4:37 PM PRINTING PLATE MAKER): Updated in office today Positive depression screening 12/21/2019 01/01/2020 Assessment & Plan (12/21/2019 4:39 PM PRINTING PLATE MAKER): See stress. May be situational. Monitor closely BMI 34.0-34.9,adult 11/25/2019 01/01/20 Assessment & Plan (12/21/2019 4:36 PM PRINTING PLATE MAKER): Obesity is unchanged. Discussed the patient's BMI. [...] provided. Assessment & Plan (01/01/2020 8:48 AM PRINTING PLATE MAKER): Obesity is unchanged. Discussed the patient's BMI. The BMI is above average. BMI management plan is completed. BMI Follow-up includes: nutrition counseling, exercise counseling and education provided. Assessment & Plan (12/21/2019 4:34 PM PRINTING PLATE MAKER): Obesity is unchanged. Discussed the patient's BMI. The BMI is above average. BMI management plan is completed. BMI Follow-up includes: nutrition counseling, exercise counseling and education provided. Other fatigue 11/25/2019 01/01/2020 Assessment & Plan (12/21/2019 4:37 PM PRINTING PLATE MAKER): Probably multifactorial. Check labs and followup to [...] PPV23 11/25/2019 Tdap 11/12/2014 ZOSTER Recombinant 11/06/2019,07/23/2019 Social History Tobacco Use Types Packs/Day Years [...] on file Legal Sex Female 6:32 PM PRINTING PLATE MAKER Gender Identity Not on file Sexual Orientation Not on file Occupation Industry Job Start Date Job End Date Retired Not on file Not on file Not on file Last Filed Vital Signs Vital Sign Reading [...] 07/24/2022 8:39 AM CDT Plan of Treatment Not on file Procedures Procedure Name Priority Date/Time Associated Diagnosis Comments SCREENING MAMMOGRAM BILATERAL W DEL Schedule Routine, Read Routine (OP Routine) 04/24/2022 DEXA SCAN Routine 04/20/2021 COLONOSCOPY Routine 01/31/2019 from Last 3 Months or Most Recently Relevant to Health Maintenance Results * Screening Mammogram Bilateral W Del (04/24/2022) Anatomical Region Laterality Modality Breast Bilateral Mammography Chelsey Haque BOWLING PIN SETTERS INSTALLER IMG MAMMO PROC EDURES Final Result * DEXA SCAN (04/20/2021) Historical Provider HEALTH MAINTENANCE Final Result * COLONOSCOPY (01/31/2019) Colonoscopy Abnormal Comment:Reynoso-Family HX Historical Provider HEALTH MAINTENANCE Final Result from Last 3 Months or Most Recently Relevant to Health Maintenance Insurance [facility] Address: [address] [address] Care Teams Solution Developer Relationship Specialty Start Date End Date Kierra Olivia PA [address] [facility] [address] [place] [address] PCP - General Internal Medicine 09/29/19
--- NOTE | 2025-01-26 16:43 | ED.RECABL ---
HPI - Recheck/Abnormal Lab/Rx General Chief Complaint: Recheck/Abnormal Lab/Rx <Aurora Sprague APRN - Last Filed: 01/26/25 16:51> Stated Complaint: I'm having a thyroid storm missed 1 dose, HTN <Aurora Sprague APRN - Last Filed: 01/26/25 16:51> Time Seen by Provider: 01/26/25 16:30 <Aurora Sprague APRN - Last Filed: 01/26/25 16:51> Focused HPI: Patient is a 74-year-old female presents to the ER with concerns after missing a dose of her thyroid medication. She reports she has a history of Miranda's and hypothyroidism so she takes 112 mcgs of Synthroid every day. Patient reports she took a dose at 4:30 a.m. on Sunday morning and Sunday morning but accidentally missed her Sunday morning dose. Patient resumed taking her Synthroid pill this morning. She reports since missing her dose she has experienced palpitations, headache, agitation. 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 GENERAL: Well-appearing, well-nourished, and in no acute distress. HEAD: Normocephalic, atraumatic. CHEST: Clear to auscultation. ?No respiratory distress. HEART: Regular rate and rhythm.? NEURO: ?Alert and oriented x3. Patient screened in triage and initial orders placed.? ?Additional care and disposition to be based upon?diagnostic testing and treatment. <Aurora Sprague APRN - Last Filed: 01/26/25 16:51> History of Present Illness HPI narrative: Patient 74-year-old female presents emergency department with chief complaint of headache and hypertension. The patient reports she has not checked her blood pressure and sometimes reports that she sees Endocrinology for hypothyroidism secondary to Miranda's and reports that they increased her Synthroid back in September patient states that she missed a dose recent 3 yesterday reports she felt some palpitations and felt anxious patient states that she took her dose today reports that her headache is doing better at this time the patient reports she does not routinely check her blood pressure at home <Carl Alex MD - Last Filed: 01/26/25 23:52> Related Data Home Medications: Home Medications ?Medication ?Instructions ?Recorded ?Confirmed ?Last Taken ?Type Calcium 1,200 mg PO DAILY 10/25/19 01/26/25 02/29/24 History cholecalciferol (vitamin D3) 125 2,000 unit PO DAILY 10/25/19 01/26/25 02/29/24 History mcg (5,000 unit) tablet (Vitamin D3) mecobalamin (vitamin B12) 1,000 2,000 mcg PO DAILY 11/15/23 01/26/25 02/29/24 History mcg chewable tablet (B12 Active) folic acid 800 mcg tablet 0.8 mg PO DAILY 03/19/24 01/26/25 Unknown History omeprazole 20 mg capsule,delayed 20 mg PO DAILY 09/24/24 01/26/25 Unknown History release <Aurora Sprague APRN - Last Filed: 01/26/25 16:51> Allergies/Adverse Reactions: Allergies Allergy/AdvReac Type Severity Reaction Status Date / Time No Known Allergies Allergy Verified 01/26/25 09:55 <Aurora Sprague APRN - Last Filed: 01/26/25 16:51> Review of Systems Review of Systems: A 10 system review of systems was completed on the patient and is negative except for what is stated in the HPI. Nursing and ancillary documentation was reviewed. <Carl Alex MD - Last Filed: 01/26/25 23:52> [facility] Past Medical History Medical History: Medical History High cholesterol Osteoporosis Hyperthyroidism GERD (gastroesophageal reflux disease) <Aurora Sprague APRN - Last Filed: 01/26/25 16:51> Surgical History Surgical History: Surgical History History of tubal ligation History of knee replacement right knee 04/16/2018 <Aurora Sprague APRN - Last Filed: 01/26/25 16:51> Family History Family History: Family History Mother Family history of arthritis Family history of lung cancer Carcinoma of colon Family history of malignant neoplasm of breast in first degree relative Family history of lung disease Father Family history of heart disease in male family member before age 55 Other Family history of coronary artery disease Family history of malignant neoplasm <Aurora Sprague APRN - Last Filed: 01/26/25 16:51> Social History Social History: Social History Smoking status: Never smoker Second hand tobacco smoke exposure: No Alcohol intake: never Alcohol use details: occasionally-frequent Substance use: never Substance use type: does not use Do You Feel Safe in your Home?: Yes Lack of Transportation: No Lack of Food: Never True Current Housing: I Have Housing Concerned About Future Housing: No Difficulty Paying Gas/Electric Bills: No Difficulty Paying for Meds: No Currently Unemployed: No Education: High School Diploma/GED Difficulty w/ Childcare or Family Care: No Living arrangements: with family Occupation/Education: retired Gender identity (if verbalized by the patient): Female Spiritual care concerns: No <Aurora Sprague, GENERAL FORECASTER - Last Filed: 01/26/25 16:51> Exam Narrative: GENERAL: Well-appearing, well-nourished, and in no acute distress. HEAD: Normocephalic, atraumatic. EYES: PERRLA and EOMI. ENT: Nares clear, no rhinorrhea or epistaxis. Mucous membranes moist. NECK: Supple. CHEST: Clear to auscultation. No respiratory distress. HEART: Regular rate and rhythm. No murmur heard. Normal peripheral pulses. ABDOMEN: Soft, nontender, nondistended, normal active bowel sounds. EXTREMITIES: Normal range of motion. No edema. SKIN: Warm, dry, no rash. NEURO: No focal deficits. Alert and oriented x3. PSYCH: Normal mood and affect. <Carl Alex MD - Last Filed: 01/26/25 23:52> Course Vital Signs Vital signs: Vital Signs Temperature 36.6 C 01/26/25 13:57 Pulse Rate 55 L 01/26/25 13:57 Respiratory Rate 17 01/26/25 13:57 Blood Pressure 170/86 H 01/26/25 13:57 Pulse Oximetry 100 01/26/25 13:57 Oxygen Delivery Room Air 01/26/25 13:57 Temperature 36.7 C 01/26/25 17:36 Pulse Rate 64 01/26/25 17:36 Respiratory Rate 16 01/26/25 22:30 Blood Pressure 190/102 H 01/26/25 17:36 Pulse Oximetry 100 01/26/25 22:30 Oxygen Delivery Room Air 01/26/25 13:57 <Aurora Sprague APRN - Last Filed: 01/26/25 16:51> Vital Signs Temperature 36.6 C 01/26/25 13:57 Pulse Rate 55 L 01/26/25 13:57 Respiratory Rate 17 01/26/25 13:57 Blood Pressure 170/86 H 01/26/25 13:57 Pulse Oximetry 100 01/26/25 13:57 Oxygen Delivery Room Air 01/26/25 13:57 Temperature 36.7 C 01/26/25 17:36 Pulse Rate 64 01/26/25 17:36 Respiratory Rate 16 01/26/25 22:30 Blood Pressure 190/102 H 01/26/25 17:36 Pulse Oximetry 100 01/26/25 22:30 Oxygen Delivery Room Air 01/26/25 13:57 <Carl Alex MD - Last Filed: 01/26/25 23:52> MDM - Recheck/Abnormal Lab/Rx MDM Narrative Medical decision making narrative: Differential diagnosis includes hypothyroidism, over medication, essential hypertension untreated Laboratory studies were obtained on the patient which did show a TSH of 0.126 with a free T4 of 2.0 and a T3 of 1.26 Patient's creatinine was 1.2 the patient has a baseline creatinine 1.24 CT head showed no acute abnormality chest x-ray showed no acute abnormality Patient will be instructed to keep a daily log of her blood pressure and to take this to primary care as she may need long-term management of hypertension <Carl Alex MD - Last Filed: 01/26/25 23:52> Lab Data Result diagrams: 01/26/25 18:20 01/26/25 18:20 <Aurora Sprague APRN - Last Filed: 01/26/25 16:51> Labs: Lab Results 01/26/25 01/26/25 Range/Units 18:20 22:26 WBC 6.5 (4.5-10.0) K/mm3 RBC 4.66 (4.2-5.4) M/mm3 Hgb 14.5 (12.0-15.0) g/dL Hct 43.1 (37.0-47.0) % MCV 92.5 (80-100) fl MCH 31.1 (26-34) pg MCHC 33.6 (32-36) g/dl RDW 12.2 (11.5-14.5) % Plt Count 215 (150-375) k/mm3 MPV 9.7 (7.4-10.4) fl Immature Gran % (Auto) 0.2 (0-0.5) % Neut % (Auto) 63.6 (45.5-73.1) % Lymph % (Auto) 26.4 (18.3-44.2) % [place] % (Auto) 6.2 (2.6-8.5) % Eos % (Auto) 2.8 (0-4.4) % Baso % (Auto) 0.8 (0.2-1.2) % Lymph # (Auto) 1.71 (0.9-3.2) K/mm3 [place] # (Auto) 0.4 (0.1-0.6) K/mm3 Eos # (Auto) 0.2 (0-0.3) K/mm3 Baso # (Auto) 0.1 (0.0-0.1) K/mm3 Abs Immat Gran (auto) 0.01 (0.00-0.031) K/mm3 Absolute Neuts (auto) 4.1 (1.3-6.7) K/mm3 Absolute Nucleated RBC 0.000 (0.0-0.012) K/mm3 Nucleated RBC % 0.0 (0.0-0.2) % PT 12.8 (11.1-14.7) Seconds INR 0.9 APTT 27.6 (22.3-36.8) Seconds Sodium 142 (137-145) mmol/L Potassium 4.4 (3.4-5.0) mmol/L Chloride 107 (98-107) mmol/L Carbon Dioxide 25 (22-30) mmol/L Anion Gap 10 (4-12) mmol/L BUN 25 H (7-17) mg/dL Creatinine 1.20 H (0.7-1.0) mg/dL Estim Creat Clear Calc 42 ml/min Estimated GFR 44 L (59 - ) Glucose 99 (65-110) mg/dL Calcium 9.5 (8.4-10.2) mg/dL Total Bilirubin 1.0 (0.2-1.3) mg/dL AST 20 (14-36) U/L ALT 16 (6-35) U/L Alkaline Phosphatase 77 (38-126) U/L Troponin I < 0.012 Pending (0.000-0.034) ng/mL Total Protein 7.0 (6.3-8.2) g/dL Albumin 4.5 (3.5-5.1) g/dL Lipase 55 (23-300) U/L TSH (Reflex) 0.126 L (0.465-4.68) uIU/mL Free T4 2.00 (0.78-2.19) ng/dL Total T3 1.26 (0.97-1.69) NG/ML <Aurora Sprague, GENERAL FORECASTER - Last Filed: 01/26/25 16:51> Lab Results 01/26/25 01/26/25 Range/Units 18:20 22:26 WBC 6.5 (4.5-10.0) K/mm3 RBC 4.66 (4.2-5.4) M/mm3 Hgb 14.5 (12.0-15.0) g/dL Hct 43.1 (37.0-47.0) % MCV 92.5 (80-100) fl MCH 31.1 (26-34) pg MCHC 33.6 (32-36) g/dl RDW 12.2 (11.5-14.5) % Plt Count 215 (150-375) k/mm3 MPV 9.7 (7.4-10.4) fl Immature Gran % (Auto) 0.2 (0-0.5) % Neut % (Auto) 63.6 (45.5-73.1) % Lymph % (Auto) 26.4 (18.3-44.2) % [place] % (Auto) 6.2 (2.6-8.5) % Eos % (Auto) 2.8 (0-4.4) % Baso % (Auto) 0.8 (0.2-1.2) % Lymph # (Auto) 1.71 (0.9-3.2) K/mm3 [place] # (Auto) 0.4 (0.1-0.6) K/mm3 Eos # (Auto) 0.2 (0-0.3) K/mm3 Baso # (Auto) 0.1 (0.0-0.1) K/mm3 Abs Immat Gran (auto) 0.01 (0.00-0.031) K/mm3 Absolute Neuts (auto) 4.1 (1.3-6.7) K/mm3 Absolute Nucleated RBC 0.000 (0.0-0.012) K/mm3 Nucleated RBC % 0.0 (0.0-0.2) % PT 12.8 (11.1-14.7) Seconds INR 0.9 APTT 27.6 (22.3-36.8) Seconds Sodium 142 (137-145) mmol/L Potassium 4.4 (3.4-5.0) mmol/L Chloride 107 (98-107) mmol/L Carbon Dioxide 25 (22-30) mmol/L Anion Gap 10 (4-12) mmol/L BUN 25 H (7-17) mg/dL Creatinine 1.20 H (0.7-1.0) mg/dL Estim Creat Clear Calc 42 ml/min Estimated GFR 44 L (59 - ) Glucose 99 (65-110) mg/dL Calcium 9.5 (8.4-10.2) mg/dL Total Bilirubin 1.0 (0.2-1.3) mg/dL AST 20 (14-36) U/L ALT 16 (6-35) U/L Alkaline Phosphatase 77 (38-126) U/L Troponin I < 0.012 Pending (0.000-0.034) ng/mL Total Protein 7.0 (6.3-8.2) g/dL Albumin 4.5 (3.5-5.1) g/dL Lipase 55 (23-300) U/L TSH (Reflex) 0.126 L (0.465-4.68) uIU/mL Free T4 2.00 (0.78-2.19) ng/dL Total T3 1.26 (0.97-1.69) NG/ML <Carl P. Lipsmeyer, MD - Last Filed: 01/26/25 23:52> Discharge Plan Discharge Clinical Impression: Hypertension <Aurora Sprague APRN - Last Filed: 01/26/25 16:51> Patient Disposition: Home, Self-Care <Aurora Sprague APRN - Last Filed: 01/26/25 16:51> Condition: Stable <Aurora Sprague APRN - Last Filed: 01/26/25 16:51> Instructions: Antibiotic Form, Hypertension (ED) <Aurora Sprague APRN - Last Filed: 01/26/25 16:51> Additional Instructions: Please keep a daily log of your blood pressure this should be taken to your primary care provider as you may need to be started on a blood pressure medicine. <Aurora Sprague APRN - Last Filed: 01/26/25 16:51> Patient Language: Khmer <Aurora Sprague APRN - Last Filed: 01/26/25 16:51> Prescriptions: No Action cholecalciferol (vitamin D3) [Vitamin D3] 125 mcg (5,000 unit) Tablet 2,000 unit PO DAILY Calcium 1,200 mg PO DAILY omeprazole 20 mg capsule,delayed release(DR/EC) 20 mg PO DAILY meclizine 25 mg tablet 25 mg PO DAILY PRN (Reason: Dizziness) Qty: 30 0RF mecobalamin (vitamin B12) [B12 Active] 1,000 mcg Tablet,Chewable 2,000 mcg PO DAILY folic acid 800 mcg Tablet 0.8 mg PO DAILY levothyroxine [Synthroid] 112 mcg tablet See Rx Instructions .ROUTE .COMPLEX Qty: 90 1RF Dose Instruction: Take 1 tablet by mouth once daily Rx Instructions: Take 1 tablet by mouth once daily <Aurora Sprague APRN - Last Filed: 01/26/25 16:51> Follow-up/Referrals: UNKNOWN,DOCTOR [Non-Staff] - Juan Franz MD [Physician] - <Aurora Sprague APRN - Last Filed: 01/26/25 16:51>
--- NOTE | 2025-01-26 18:00 | ECG_ITS ---
Test Date: 2025-01-26 18:24:12 Measurements Intervals [place] Rate: 61 P: 0 [place]: 0 QRS: 15 QRSD: 94 T: 37 QT: 445 QTc: 450 Interpretive Statements SINUS RHYTHM WITH PACS SEPTAL MYOCARDIAL INFARCTION , OF INDETERMINATE AGE [40+ ms Q WAVE IN V1/V2] No previous ECG available for comparison Electronically Signed On 01-27-2025 16:44:25 CDT by Marci Begum M.D.
[2025-01-26 18:32] LABS: Basophils Absolute Auto 0.1 K/mm3 (0.0-0.1); Basophils Percent Auto 0.8 % (0.2-1.2); Eosinophils Absolute Auto 0.2 K/mm3 (0-0.3); Eosinophils Percent Auto 2.8 % (0-4.4); Hematocrit 43.1 % (37.0-47.0); Hemoglobin 14.5 g/dL (12.0-15.0); Immature Granulocyte Absolute 0.01 K/mm3 (0.00-0.031); Immature Granulocyte Percent A 0.2 % (0-0.5); Lymphocytes Absolute Auto 1.71 K/mm3 (0.9-3.2); Lymphocytes Percent Auto 26.4 % (18.3-44.2); Mean Corpuscular HGB Conc 33.6 g/dl (32-36); Mean Corpuscular Hemoglobin 31.1 pg (26-34); Mean Corpuscular Volume 92.5 fl (80-100); Mean Platelet Volume 9.7 fl (7.4-10.4); Monocytes Absolute Auto 0.4 K/mm3 (0.1-0.6); Monocytes Percent Auto 6.2 % (2.6-8.5); Neutrophils Absolute Auto 4.1 K/mm3 (1.3-6.7); Neutrophils Percent Auto 63.6 % (45.5-73.1); Platelet Count Result 215 k/mm3 (150-375); Red Blood Count 4.66 M/mm3 (4.2-5.4); Red Cell Distribution Width 12.2 % (11.5-14.5); White Blood Count 6.5 K/mm3 (4.5-10.0)
[2025-01-26 18:42] LABS: Alanine Aminotransferase 16 U/L (6-35); Albumin Level 4.5 g/dL (3.5-5.1); Alkaline Phosphatase 77 U/L (38-126); Anion Gap 10 mmol/L (4-12); Aspartate Amino Transferase 20 U/L (14-36); Blood Urea Nitrogen 25 mg/dL (7-17); Calcium 9.5 mg/dL (8.4-10.2); Carbon Dioxide 25 mmol/L (22-30); Chloride 107 mmol/L (98-107); Estimated CRCL calculation 42 ml/min; Estimated Glomerular Filt Rate 44; Glucose 99 mg/dL (65-110); Lipase 55 U/L (23-300); Potassium 4.4 mmol/L (3.4-5.0); Sodium 142 mmol/L (137-145)
[2025-01-26 18:52] LABS: INR 0.9; Partial Thromboplastin Time 27.6 Seconds (22.3-36.8); Prothrombin Time 12.8 Seconds (11.1-14.7)
[2025-01-26 18:53] LABS: Troponin I < 0.012 ng/mL (0.000-0.034)
[2025-01-26 19:58] LABS: Thyroid Stimulating Hormone Reflex 0.126 uIU/mL (0.465-4.68)
[2025-01-26 21:31] LABS: Total Triiodothyronine (T3) 1.26 NG/ML (0.97-1.69)
--- NOTE | 2025-01-26 22:25 | ECG_ITS ---
Test Date: 2025-01-26 22:41:30 Measurements Intervals [place] Rate: 64 P: 69 [place]: 163 QRS: 19 QRSD: 97 T: 30 QT: 420 QTc: 436 Interpretive Statements SINUS RHYTHM WITH MARKED SINUS ARRHYTHMIA POSSIBLE OLD SEPTAL INFARCT Compared to ECG 01/26/2025 18:24:12 NO SIGNIFICANT CHANGES Electronically Signed On 01-27-2025 16:47:29 CDT by Marci Begum M.D.
--- OUTSIDE RECORDS SUMMARY | 2025-01-26 22:56 | XMS_ITS | Encounter Summary ---
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
--- OUTSIDE RECORDS SUMMARY | 2025-01-26 22:56 | XMS_ITS | Referral Summary ---
Author [place] [facility] [place] [address] [facility] Address [address] [place] [address] Care Team Providers Care Nutrition Director Name Role Phone Kierra Olivia Primary Care Provider +1- [phone] Allergies No known active allergies Medications alendronate [...] maintain. Assessment & Plan (01/11/2022 8:27 AM TUBULAR RIVETER): Weight/BMI is in healthy range. Continue healthy lifestyle to maintain. Medicare annual wellness visit, subsequent 01/09 Assessment & Plan (01/11/2022 9:14 AM TUBULAR RIVETER): Encouraged healthy lifestyle, good nutrition and exercise. [...] screenings. Assessment & Plan (01/09/2021 9:17 PM TUBULAR RIVETER): Encouraged healthy lifestyle, good nutrition and exercise. [...] labs. Assessment & Plan (01/11/2022 9:14 AM TUBULAR RIVETER): Kidney function with continued stability. Continue to avoid renal toxic drugs. Assessment & Plan (07/19/2021 9:03 AM CDT): Avoid nephrotoxic drugs including NSAIDs. Monitor labs. Assessment & Plan (01/10/2021 9:59 AM TUBULAR RIVETER): Avoid nephrotoxic drugs including NSAIDs. Monitor labs. Assessment & Plan (07/10/2020 8:59 PM CDT): Avoid nephrotoxic drugs including NSAIDs. Monitor labs. Assessment & Plan (01/04/2020 8:28 PM TUBULAR RIVETER): Avoid nephrotoxic drugs including NSAIDs. Monitor labs. Multiple thyroid nodules 12/21/2019 Assessment & Plan (08/06/2022 9:00 PM CDT): Continue per Dr. Breen she manages the thyroid nodules and thyroid levels Assessment & Plan (01/11/2022 9:13 AM TUBULAR RIVETER): Continue per Dr. breen Assessment & Plan (12/21/2019 4:36 PM TUBULAR RIVETER): Continue per Dr. Fong. 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 sin Assessment & Plan (01/11/2022 9:13 AM TUBULAR RIVETER): Continue per Dr. breen Assessment & Plan (07/19/2021 9:02 AM CDT): Continue per Dr. Fong Assessment & Plan (01/10/2021 10:01 AM TUBULAR RIVETER): Managed by Endocrine On Synthroid brand Assessment & Plan (07/10/2020 9:00 PM CDT): Continue levothyroxine Assessment & Plan (01/04/2020 8:29 PM TUBULAR RIVETER): Continue synthroid. Labs stable. Assessment & Plan (12/21/2019 4:35 PM TUBULAR RIVETER): Continue per Dr. Fong, endocrine. Elevated blood pressure read ing without diagnosis of hypertension 12/21/2019 Assessment & Plan (01/10/2021 10:02 AM TUBULAR RIVETER): Continue to monitor readings. Still borderline Assessment & Plan (01/04/2020 8:31 PM TUBULAR RIVETER): Stable. Continue to monitor closely Assessment & Plan (12/21/2019 4:37 PM TUBULAR RIVETER): This is a significant, separately identifiable problem [...] PPI Assessment & Plan (01/11/2022 9:13 AM TUBULAR RIVETER): Continue PPI. Assessment & Plan (07/19/2021 9:03 AM CDT): Stable with prn PPI Assessment & Plan (01/10/2021 9:59 AM TUBULAR RIVETER): Continue PPI Assessment & Plan (07/10/2020 8:59 PM CDT): Continue PPI If tightening continues, will return to Dr. Reynoso for possible EGD Assessment & Plan (01/04/2020 8:28 PM TUBULAR RIVETER): Continue the PPI Assessment & Plan (12/21/2019 4:34 PM TUBULAR RIVETER): Continue PPI History of bilateral breast implants 12/21/2019 Assessment & Plan (01/10/2021 10:04 AM TUBULAR RIVETER): Patient states Dr. Caldwell and Dr. Scruggs are working on her possible implants leaking vs ripple etc. She will keep us up to date. Assessment & Plan (07/10/2020 9:00 PM CDT): Continue per Dr. Scruggs Assessment & Plan (01/04/2020 8:30 PM TUBULAR RIVETER): Continue per Dr. Healy Age-related osteoporosis wit hout current pathological fracture 12/21/2019 Assessment & Plan (08/06/2022 9:01 PM CDT): Continue Fosamax calcium vitamin-D and exercise. Dex is monitored by Assessment & Plan (01/11/2022 9:13 AM TUBULAR RIVETER): Continue per Dr. breen. She is tolerating the Fosamax. Encouraged calcium vitamin-D and exercise. Assessment & Plan (07/19/2021 9:04 AM CDT): Continue calcium and vitamin D. Request DXA -- she states she plans to review with Dr. Fong at her next visit. Assessment & Plan (01/10/2021 10:01 AM TUBULAR RIVETER): Dr. Caldwell/FINANCIAL SERVICES PROFESSIONAL manages fosamax and DXA. Assessment & Plan (07/10/2020 8:59 PM CDT): Continue fosamax Encourage calcium, vitamin D and weight bearing exercise to maintain the good bone strength. Assessment & Plan (01/04/2020 8:28 PM TUBULAR RIVETER): Continue with Fosamax. Dr. Caldwell manages Assessment & Plan (12/21/2019 4:35 PM TUBULAR RIVETER): Continue Fosomax and calcium, vitD and exercise. Stress 12/21/2019 Assessment & Plan (07/10/2020 9:01 PM CDT): Continue to montior. States ok currently without medication Assessment & Plan (01/04/2020 8:30 PM TUBULAR RIVETER): Pt feels like all is stable. Wants to continue to monitor without meds. 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 Fong. Continue levothyroxine Hyperglycemia 11/25/2019 Assessment & Plan (08/06/2022 9:00 PM CDT): Pre-diabetes/hyperglycemia is a precursor to Dm. Stressed importance of working on diet (decrease your simple sugars and one carbohydrate with each meal) and increase you exercise to achieve weight loss and this will help prevent you from progressing to diabetes. Assessment & Plan (01/11/2022 9:13 AM TUBULAR RIVETER): Monitor labs. Continue activity and weight loss. [...] 30#s Assessment & Plan (01/10/2021 10:01 AM TUBULAR RIVETER): Pre-diabetes is a precursor to Dm. Stressed [...] diabetes. Assessment & Plan (01/04/2020 8:29 PM TUBULAR RIVETER): A1c is normal Assessment & Plan (12/21/2019 4:35 PM TUBULAR RIVETER): This is a significant, separately identifiable problem [...] needed. Assessment & Plan (01/11/2022 9:13 AM TUBULAR RIVETER): Encouraged patient to follow fat/low chol diet [...] needed. Assessment & Plan (01/04/2020 8:28 PM TUBULAR RIVETER): Encouraged patient to continue low fat/low chol diet. Continue exercise. Increase good fats in the diet. Monitor labs as needed. Assessment & Plan (12/21/2019 4:36 PM TUBULAR RIVETER): Encouraged patient to continue low fat/low chol [...] 01/10/20212020 Assessment & Plan (01/10/2021 8:15 AM TUBULAR RIVETER): Obesity is unchanged. Discussed the patient's BMI. The BMI is above average. BMI management plan is completed. BMI Follow-up includes: nutrition counseling, exercise counseling and education provided. BMI 33.0-33.9,adult 01/10/2021 07/19/20 21 Assessment & Plan (01/10/2021 8:16 AM TUBULAR RIVETER): Obesity is unchanged. Discussed the patient's BMI. [...] provided. Assessment & Plan (01/01/2020 8:48 AM TUBULAR RIVETER): Obesity is unchanged. Discussed the patient's BMI. The BMI is above average. BMI management plan is completed. BMI Follow-up includes: nutrition counseling, exercise counseling and education provided. Medicare annual wellness visit, initial 12/21/2019 01/01/2020 Assessment & Plan (12/21/2019 4:37 PM TUBULAR RIVETER): Encouraged healthy lifestyle, good nutrition and exercise. Encouraged Calcium and Vitamin D and weight bearing exercise for bone health. Reviewed immunizations Reviewed age appropirate screenings. Documentation is on the chart Need for 23-polyvalent pneum ococcal polysaccharide vaccine 12/21/2019 01/01/2020 Assessment & Plan (12/21/2019 4:37 PM TUBULAR RIVETER): Updated in office today Positive depression screening 12/21/2019 01/01/2020 Assessment & Plan (12/21/2019 4:39 PM TUBULAR RIVETER): See stress. May be situational. Monitor closely BMI 34.0-34.9,adult 11/25/2019 01/01/20 Assessment & Plan (12/21/2019 4:36 PM TUBULAR RIVETER): Obesity is unchanged. Discussed the patient's BMI. [...] provided. Assessment & Plan (01/01/2020 8:48 AM TUBULAR RIVETER): Obesity is unchanged. Discussed the patient's BMI. The BMI is above average. BMI management plan is completed. BMI Follow-up includes: nutrition counseling, exercise counseling and education provided. Assessment & Plan (12/21/2019 4:34 PM TUBULAR RIVETER): Obesity is unchanged. Discussed the patient's BMI. The BMI is above average. BMI management plan is completed. BMI Follow-up includes: nutrition counseling, exercise counseling and education provided. Other fatigue 11/25/2019 01/01/2020 Assessment & Plan (12/21/2019 4:37 PM TUBULAR RIVETER): Probably multifactorial. Check labs and followup to [...] on file Legal Sex Female 6:32 PM TUBULAR RIVETER Gender Identity Not on file Sexual Orientation [...] Laterality Modality Breast Bilateral Mammography Chelsey Haque CINDER DUMP CRANE OPERATOR IMG MAMMO PROC EDURES Final Result * DEXA SCAN (04/20/2021) Historical Provider HEALTH MAINTENANCE Final Result * COLONOSCOPY (01/31/2019) Colonoscopy Abnormal Comment:Reynoso-Family HX Historical Provider HEALTH MAINTENANCE Final Result from Last 3 Months or Most Recently Relevant to Health Maintenance Insurance MEDICARE [employer] [facility] MEDICARE Address: [address] [address] Care Teams Nutrition Director Relationship Specialty Start Date End Date Kierra Olivia PA [address] [facility] [address] [place] [address] PCP - General Internal Medicine 09/29/19
--- OUTSIDE RECORDS SUMMARY | 2025-01-26 22:56 | XMS_ITS | Clinical Summary ---
Author Organization [facility] [place] [address] [facility] Address [address] [place] [address] Care Team Providers Care Api Product Manager Name Role Phone Kierra Olivia Primary Care Provider +1- [phone] Allergies No known active allergies Medications alendronate [...] maintain. Assessment & Plan (01/11/2022 8:27 AM RECHARGER): Weight/BMI is in healthy range. Continue healthy lifestyle to maintain. Medicare annual wellness visit, subsequent 01/09 Assessment & Plan (01/11/2022 9:14 AM RECHARGER): Encouraged healthy lifestyle, good nutrition and exercise. [...] screenings. Assessment & Plan (01/09/2021 9:17 PM RECHARGER): Encouraged healthy lifestyle, good nutrition and exercise. [...] labs. Assessment & Plan (01/11/2022 9:14 AM RECHARGER): Kidney function with continued stability. Continue to avoid renal toxic drugs. Assessment & Plan (07/19/2021 9:03 AM CDT): Avoid nephrotoxic drugs including NSAIDs. Monitor labs. Assessment & Plan (01/10/2021 9:59 AM RECHARGER): Avoid nephrotoxic drugs including NSAIDs. Monitor labs. Assessment & Plan (07/10/2020 8:59 PM CDT): Avoid nephrotoxic drugs including NSAIDs. Monitor labs. Assessment & Plan (01/04/2020 8:28 PM RECHARGER): Avoid nephrotoxic drugs including NSAIDs. Monitor labs. Multiple thyroid nodules 12/21/2019 Assessment & Plan (08/06/2022 9:00 PM CDT): Continue per Dr. Breen she manages the thyroid nodules and thyroid levels Assessment & Plan (01/11/2022 9:13 AM RECHARGER): Continue per Dr. breen Assessment & Plan (12/21/2019 4:36 PM RECHARGER): Continue per Dr. Fong. 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 sin Assessment & Plan (01/11/2022 9:13 AM RECHARGER): Continue per Dr. breen Assessment & Plan (07/19/2021 9:02 AM CDT): Continue per Dr. Fong Assessment & Plan (01/10/2021 10:01 AM RECHARGER): Managed by Endocrine On Synthroid brand Assessment & Plan (07/10/2020 9:00 PM CDT): Continue levothyroxine Assessment & Plan (01/04/2020 8:29 PM RECHARGER): Continue synthroid. Labs stable. Assessment & Plan (12/21/2019 4:35 PM RECHARGER): Continue per Dr. Fong, endocrine. Elevated blood pressure read ing without diagnosis of hypertension 12/21/2019 Assessment & Plan (01/10/2021 10:02 AM RECHARGER): Continue to monitor readings. Still borderline Assessment & Plan (01/04/2020 8:31 PM RECHARGER): Stable. Continue to monitor closely Assessment & Plan (12/21/2019 4:37 PM RECHARGER): This is a significant, separately identifiable problem [...] PPI Assessment & Plan (01/11/2022 9:13 AM RECHARGER): Continue PPI. Assessment & Plan (07/19/2021 9:03 AM CDT): Stable with prn PPI Assessment & Plan (01/10/2021 9:59 AM RECHARGER): Continue PPI Assessment & Plan (07/10/2020 8:59 PM CDT): Continue PPI If tightening continues, will return to Dr. Reynoso for possible EGD Assessment & Plan (01/04/2020 8:28 PM RECHARGER): Continue the PPI Assessment & Plan (12/21/2019 4:34 PM RECHARGER): Continue PPI History of bilateral breast implants 12/21/2019 Assessment & Plan (01/10/2021 10:04 AM RECHARGER): Patient states Dr. Caldwell and Dr. Scruggs are working on her possible implants leaking vs ripple etc. She will keep us up to date. Assessment & Plan (07/10/2020 9:00 PM CDT): Continue per Dr. Scruggs Assessment & Plan (01/04/2020 8:30 PM RECHARGER): Continue per Dr. Healy Age-related osteoporosis wit hout current pathological fracture 12/21/2019 Assessment & Plan (08/06/2022 9:01 PM CDT): Continue Fosamax calcium vitamin-D and exercise. Dex is monitored by Assessment & Plan (01/11/2022 9:13 AM RECHARGER): Continue per Dr. breen. She is tolerating the Fosamax. Encouraged calcium vitamin-D and exercise. Assessment & Plan (07/19/2021 9:04 AM CDT): Continue calcium and vitamin D. Request DXA -- she states she plans to review with Dr. Fong at her next visit. Assessment & Plan (01/10/2021 10:01 AM RECHARGER): Dr. Caldwell/IOS SOFTWARE ENGINEER manages fosamax and DXA. Assessment & Plan (07/10/2020 8:59 PM CDT): Continue fosamax Encourage calcium, vitamin D and weight bearing exercise to maintain the good bone strength. Assessment & Plan (01/04/2020 8:28 PM RECHARGER): Continue with Fosamax. Dr. Caldwell manages Assessment & Plan (12/21/2019 4:35 PM RECHARGER): Continue Fosomax and calcium, vitD and exercise. Stress 12/21/2019 Assessment & Plan (07/10/2020 9:01 PM CDT): Continue to montior. States ok currently without medication Assessment & Plan (01/04/2020 8:30 PM RECHARGER): Pt feels like all is stable. Wants to continue to monitor without meds. 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 Fong. Continue levothyroxine Hyperglycemia 11/25/2019 Assessment & Plan (08/06/2022 9:00 PM CDT): Pre-diabetes/hyperglycemia is a precursor to Dm. Stressed importance of working on diet (decrease your simple sugars and one carbohydrate with each meal) and increase you exercise to achieve weight loss and this will help prevent you from progressing to diabetes. Assessment & Plan (01/11/2022 9:13 AM RECHARGER): Monitor labs. Continue activity and weight loss. [...] 30#s Assessment & Plan (01/10/2021 10:01 AM RECHARGER): Pre-diabetes is a precursor to Dm. Stressed [...] diabetes. Assessment & Plan (01/04/2020 8:29 PM RECHARGER): A1c is normal Assessment & Plan (12/21/2019 4:35 PM RECHARGER): This is a significant, separately identifiable problem [...] needed. Assessment & Plan (01/11/2022 9:13 AM RECHARGER): Encouraged patient to follow fat/low chol diet [...] needed. Assessment & Plan (01/04/2020 8:28 PM RECHARGER): Encouraged patient to continue low fat/low chol diet. Continue exercise. Increase good fats in the diet. Monitor labs as needed. Assessment & Plan (12/21/2019 4:36 PM RECHARGER): Encouraged patient to continue low fat/low chol [...] 01/10/20212020 Assessment & Plan (01/10/2021 8:15 AM RECHARGER): Obesity is unchanged. Discussed the patient's BMI. The BMI is above average. BMI management plan is completed. BMI Follow-up includes: nutrition counseling, exercise counseling and education provided. BMI 33.0-33.9,adult 01/10/2021 07/19/20 21 Assessment & Plan (01/10/2021 8:16 AM RECHARGER): Obesity is unchanged. Discussed the patient's BMI. [...] provided. Assessment & Plan (01/01/2020 8:48 AM RECHARGER): Obesity is unchanged. Discussed the patient's BMI. The BMI is above average. BMI management plan is completed. BMI Follow-up includes: nutrition counseling, exercise counseling and education provided. Medicare annual wellness visit, initial 12/21/2019 01/01/2020 Assessment & Plan (12/21/2019 4:37 PM RECHARGER): Encouraged healthy lifestyle, good nutrition and exercise. Encouraged Calcium and Vitamin D and weight bearing exercise for bone health. Reviewed immunizations Reviewed age appropirate screenings. Documentation is on the chart Need for 23-polyvalent pneum ococcal polysaccharide vaccine 12/21/2019 01/01/2020 Assessment & Plan (12/21/2019 4:37 PM RECHARGER): Updated in office today Positive depression screening 12/21/2019 01/01/2020 Assessment & Plan (12/21/2019 4:39 PM RECHARGER): See stress. May be situational. Monitor closely BMI 34.0-34.9,adult 11/25/2019 01/01/20 Assessment & Plan (12/21/2019 4:36 PM RECHARGER): Obesity is unchanged. Discussed the patient's BMI. [...] provided. Assessment & Plan (01/01/2020 8:48 AM RECHARGER): Obesity is unchanged. Discussed the patient's BMI. The BMI is above average. BMI management plan is completed. BMI Follow-up includes: nutrition counseling, exercise counseling and education provided. Assessment & Plan (12/21/2019 4:34 PM RECHARGER): Obesity is unchanged. Discussed the patient's BMI. The BMI is above average. BMI management plan is completed. BMI Follow-up includes: nutrition counseling, exercise counseling and education provided. Other fatigue 11/25/2019 01/01/2020 Assessment & Plan (12/21/2019 4:37 PM RECHARGER): Probably multifactorial. Check labs and followup to [...] on file Legal Sex Female 6:32 PM RECHARGER Gender Identity Not on file Sexual Orientation [...] Laterality Modality Breast Bilateral Mammography Chelsey Haque TROLLEY COACH DRIVER IMG MAMMO PROC EDURES Final Result * DEXA SCAN (04/20/2021) Historical Provider HEALTH MAINTENANCE Final Result * COLONOSCOPY (01/31/2019) Colonoscopy Abnormal Comment:Reynoso-Family HX Historical Provider HEALTH MAINTENANCE Final Result from Last 3 Months or Most Recently Relevant to Health Maintenance Insurance MED[employer] Care Teams Api Product Manager Relationship Specialty Start Date End Date Kierra Olivia PA [address] [facility] [address] [place] [address] PCP - General Internal Medicine 09/29/19
--- OUTSIDE RECORDS SUMMARY | 2025-01-26 22:56 | XMS_ITS | CONTINUITY OF CARE DOCUMENT ---
Author Name fransisco moody Address Unknown Organization [facility] Address [address] [place] [address] [address] [place] [address] Phone [phone] Care Team Providers [employer] Name Role Phone José Luis SANZ, Esvin Unavailable GALDINO HARRELL MD Unavailable [phone] ANDI SANZ, RIMA [place] Unavailable PROBLEMS Condition Status Date Provider Notes Long-term [...] In-person encounter Office Visit Esvin Ordonez MD [facility] - In-person encounter Office Visit Esvin Ordonez MD [facility] - In-person encounter Office Visit Esvin Ordonez MD [facility] - In-person encounter Office Visit Esvin Ordonez MD [facility] - In-person encounter Office Visit Esvin Ordonez MD [facility] HTN essential--echo normal ef 60%, alpitationsChest pain CA score zero ung nodule mm Left lower lobe On CT needs F/up - In-person encounter Office Visit Esvin Ordonez MD [facility] GERDHTN essential--echo normal ef 60%, 06/2021HypothyroidismHyp [...] blood pressure, diastolic 83 mm[Hg] St radha [place] blood pressure, systolic 161 mm[Hg] Bobby gayle [place] blood pressure, cuff size large St garcia [place] oxygen saturation, oximetry 98 % Lois Chamberlainman respiratory rate E&M 16 /min Melvin ie [place] pulse rate 68 /min Lois Lohma n weight E&M 182 [lb_av] Lois Lohma n height E&M 65 [in_i] Lois Lohma n Body Mass Index (Ratio) 30.12 [...] She rkeitjanette KumarHoffmann blood pressure, resting Yes [facility] esperanza Kumarford oxygen saturation, oximetry 98 % [facility] Hoffmann pulse rate 74 /min [facility] Kumar hussein respiratory rate E&M 20 /min [facility] gottlieb [place] weight E&M 185 [lb_av] [facility] Craw hussein height E&M 65 [in_i] [facility] Craw hussein ALLERGIES No Known Drug Allergies [...] CAPSULE completed as needed - Meenakshiulices Pinedaglia [facility] vits A and D-white pet-lanolin ointment completed - Orion Varela BONINE 25 MG CHEW completed - Orion Varela omeprazole 40 mg capsule,delayed release(/EC) completed - Orion Varela montelukast 10 mg tablet completed - Meenakshi Schmid [facility] Synthroid 50 mcg tablet active Willem [...] Benavideszanoreen drug use no Meenakshi Cabanmig yary HOTEL HOUSEKEEPER alcohol use no Meenakshi Ventimig yary HOTEL HOUSEKEEPER smoking status Never smoker Meenakshi Cabanm iglia [facility] social history reviewed E&M revi ewed [...] Payer name Policy type / Coverage type Waldo red libertarian ID [facility] GR[facility] MEDICARE ADVANTAGE PLAN (PPO) Medicare [id number] ADVANCE DIRECTIVES Name Date DISCUSSED - NO DECISION MADE TREATMENT PLAN Date Name Performer [id number],C,E ncouraged her to resume PPI in setting of possible stricture. H er updated medication list for this problem includes: Omeprazole 40 Mg Capsule,delayed Release(dr/ec) (Omeprazole) Meenakshi Ventimiglia [facility] [id number],S,o n replacement. Will update TSH H er updated medication list for this problem includes: Synthroid 50 Mcg Tablet (Levothyroxine) Meenakshi Ventimiglia [facility] [id number],C,O n statin now. Will update lipids H er updated medication list for this problem includes: Atorvastatin 20 Mg Tablet (Atorvastatin) ..... Take 1 tablet by mouth once a day take one tablet by mouth daily at bedtime. Meenakshi Schmid [facility] [id number],S,follow up CT chest in one year Meenakshi Schmid [facility] [id number],S,n otes after taking lipitor. She also reports feeling as though food as sticking when eating. Concern that may be r/t stricture as she has history. Have referred her back to [facility]HEL[facility] deng. O rders: 9 9214 MOD 30-39min (CPT-61324) C OMPREHENSIVE METABOLIC PANEL, W/EGFR (46593) L IPID PANEL (7600) T SH, free T4, total T3 (7444) H EMOGLOBIN A1c (496) Meenakshi Schmid [facility] [id number],C, Esvin Ordonez MD [id number],B, Esvin Ordonez MD [id number],B, Esvin Ordonez MD [id number],W, Esvin Ordonez MD [id number],C, Esvin Ordonez MD [id number],S, Orion Ahmedza i [id number],S, Orion Ahmedza i [id number],S, Orion Ahmedza i [id number],S, Orion Ahmedza i [id number],S, Orion Ahmedza i [id number],S, Orion Ahmedza i [id number],S, Orion Ahmedza i [id number],S, Orion Ahmedza i [id number],S, Orion Ahmedza i [id number],S, Orion Adams i [id number],S, Orion Adams i [id number],W, Esvin Ordonez MD [id number],S, Esvin Ordonez MD [id number],S,E levated, was just started on lisinopril, recommended to monitor BP at home B P today: 150/84 Her updated medication list for this problem includes: Lisinopril 10 Mg Oral Tablet (Lisinopril) Esvin Ordonez MD [id number],S, H er updated medication list for this [...] Synthroid 50 Mcg Tablet (Levothyroxine) Meenakshi Schmid [facility] Cardiology:On statin now. Will update lipids H er updated medication list for this problem includes: Atorvastatin 20 Mg Tablet (Atorvastatin) ..... Take 1 tablet by mouth once a day take one tablet by mouth daily at bedtime. Meenakshi Schmid [facility] Cardiology:follow up CT chest in one year Meenakshi Schmid [facility] Cardiology:notes aft er taking lipitor. She also reports feeling as though food as sticking when eating. Concern that may be r/t stricture as she has history. Have referred her back to [facility] deng. Orders: 9 9214 MOD 30-39min (CPT-55496) C OMPREHENSIVE METABOLIC PANEL, W/EGFR (27122) L IPID PANEL (7600) T SH, free T4, total T3 (7444) H EMOGLOBIN A1c (496) Meenakshi Pinedacarolin [facility] Cardiology Esvin Ordonez MD Cardiology Esvin Ordonez MD Cardiology Esvin Ordonez MD Cardiology Evsin Ordonez MD Cardiology Esvin Ordonez MD Cardiology [...]
[2025-01-26 23:54] LABS: Troponin I < 0.012 ng/mL (0.000-0.034)
[2025-01-27] VITALS: PULSE 60; RESP 14; O2SAT 97
[2025-01-27 00:01] VITALS: BP 147/67; PULSE 58; RESP 14; O2SAT 100
[2025-01-27 00:15] VITALS: PULSE 59; RESP 15
[2025-01-27 00:16] VITALS: BP 152/68; PULSE 61; RESP 17; O2SAT 100
[2025-01-27 00:24] VITALS: BP 152/68; PULSE 61; RESP 17; O2SAT 100
== END 2025-01-27 00:26 | disposition home or self-care (01) ==
PROVIDERS: Emergency Medicine; Registered Nurse; Emergency Provider Emergency Medicine
DX: I10 Essential (primary) hypertension (principal); E78.00 Pure hypercholesterolemia, unspecified; E06.3 Autoimmune thyroiditis; M81.0 Age-related osteoporosis without current pathological fracture; K21.9 Gastro-esophageal reflux disease without esophagitis; Z96.651 Presence of right artificial knee joint; Z79.899 Other long term (current) drug therapy; R94.31 Abnormal electrocardiogram [ECG] [EKG]
CPT/HCPCS: 36415; 70450; 71046; 80053; 83690; 84439; 84443; 84480; 84484; 85025; 85610; 85730; 93005; 99284

== ENCOUNTER 2025-04-29 09:14 | Outpatient (CLI) | payer MEDICARE, SELFPAY ==
--- NOTE | ~2025-04-29 | MM_ITS ---
EXAMINATION: MM diagnostic nazario BI w lu HISTORY: History of bilateral breast asymmetries. Status post silicone implant removal in 03/2024. TECHNIQUE: Additional 3-D tomosynthesis images of the breasts were performed and synthetic 2-D images were generated. CAD analysis was submitted and interpreted. COMPARISON: Comparison to multiple prior studies sequentially, with oldest reviewed study dated 07/2019. BREAST PARENCHYMAL COMPOSITION: Not dense: There are scattered areas of fibroglandular density. FINDINGS: There is stable areas of hyperdense mass located centrally in both breasts, posterior third , compatible with sequela of prior implant removal and silicone extrusion. No new masses, calcificati ons or architectural distortion in either breast to suggest malignancy. IMPRESSION: 1. Stable bilateral mammogram without evidence for malignancy. Benign findings. 2. Routine yearly screening mammogram and regular clinical breast examination are recommended. BI-RADS Category 2: Benign finding(s). Reviewed, dictated and finalized at location A. IMPRESSION: 1. Stable bilateral mammogram without evidence for malignancy. Benign findings. 2. Routine yearly screening mammogram and regular clinical breast examination a re recommended. BI-RADS Category 2: Benign finding(s).
== END 2025-04-29 09:15 | disposition home or self-care (01) ==
LOC: MICIMG 09:16
PROVIDERS: PCP Surgery Plastic and Reconstructive Surgery; Visit Provider Obstetrics & Gynecology Gynecology
DX: R92.8 Other abnormal and inconclusive findings on diagnostic imaging of breast (principal)
CPT/HCPCS: 77062; 77066; G0279

== ENCOUNTER 2025-06-05 14:14 | Outpatient (CLI) | payer MEDICARE, SELFPAY ==
--- NOTE | ~2025-06-05 | US_ITS ---
US soft tissue chest 06/05/2025 14:38 Indication: Palpable mass left posterior axillary region Procedure: Targeted ultrasound left posterior axilla Comparison: No prior studies for comparison. Findings: In the region of clinical concern there is an isoechoic soft tissue mass measuring 4.1 x 1. 5 x 2.9 cm. Lesion demonstrates parallel orientation to the skin surface and no significant posterior acoustic features. Margins are well-defined without associated hyperemia or surrounding inflammatory change. Adjacent soft tissues are unremarkable. No abnormal lymphadenopathy. Impression: 1: Findings compatible with benign lipoma. Consider surgical consultation of the lesion is enlarging, painful or cosmetically concerning to the patient. Reviewed, dictated and finalized at location B. Impression: 1: Findings compatible with benign lipoma. Consider surgical consultation of th e lesion is enlarging, painful or cosmetically concerning to the patient.
== END 2025-06-05 14:15 | disposition home or self-care (01) ==
LOC: MICIMG 14:14
PROVIDERS: PCP Physician Assistant Surgical; Visit Provider Physician Assistant Surgical
DX: N63.20 Unspecified lump in the left breast, unspecified quadrant (principal)
CPT/HCPCS: 76604

== ENCOUNTER 2025-06-12 11:50 | Outpatient (NON) | payer MEDICARE, SELFPAY ==
--- NOTE | 2025-06-12 | S_PTH ---
PATIENT: Manju Hart LOC: [facility] U#:[id number] AGE/SX: 74/F ROOM: RE06/12/[address]: Lito Harrington MD : 1950 BED: DIS: 06/12/2025 SPEC #: [id number] RECD: 06/12/25 12:46 STATUS: EMANUEL REQ #: [id number] DMITRY: 06/12/25 00:[address]: Lito Harrington DEPT: [facility] Surgical RECD BY: Cassidy Cervantes ENTERED: 06/12/25 12:47 SP TYPE: Surgical OTHR DR: Yue Starkey PA-C Tissues: A - Breast Tissue Procedures: Hematoxylin and Eosin Stain Gross and Microscopic Level 4
--- OUTSIDE RECORDS SUMMARY | 2025-06-12 11:54 | XMS_ITS | Clinical Summary ---
Author Organization [facility] [place] [address] [facility] Address [address] [place] [address] Care Team Providers Care Medical Assistant Prn Name Role Phone Kierra Olivia Primary Care Provider [phone] Allergies No known active allergies Medications alendronate [...] maintain. Assessment & Plan (01/11/2022 8:27 AM ORTHODONTIST [employer] OWNER): Weight/BMI is in healthy range. Continue healthy lifestyle to maintain. Medicare annual wellness visit, subsequent 01/09 Assessment & Plan (01/11/2022 9:14 AM ORTHODONTIST [employer] OWNER): Encouraged healthy lifestyle, good nutrition and exercise. [...] screenings. Assessment & Plan (01/09/2021 9:17 PM ORTHODONTIST [employer] OWNER): Encouraged healthy lifestyle, good nutrition and exercise. [...] labs. Assessment & Plan (01/11/2022 9:14 AM ORTHODONTIST [employer] OWNER): Kidney function with continued stability. Continue to avoid renal toxic drugs. Assessment & Plan (07/19/2021 9:03 AM CDT): Avoid nephrotoxic drugs including NSAIDs. Monitor labs. Assessment & Plan (01/10/2021 9:59 AM ORTHODONTIST [employer] BUSINESS OWNER): Avoid nephrotoxic drugs including NSAIDs. Monitor labs. Assessment & Plan (07/10/2020 8:59 PM CDT): Avoid nephrotoxic drugs including NSAIDs. Monitor labs. Assessment & Plan (01/04/2020 8:28 PM ORTHODONTIST [employer] OWNER): Avoid nephrotoxic drugs including NSAIDs. Monitor labs. Multiple thyroid nodules 12/21/2019 Assessment & Plan (08/06/2022 9:00 PM CDT): Continue per Dr. Breen she manages the thyroid nodules and thyroid levels Assessment & Plan (01/11/2022 9:13 AM ORTHODONTIST [employer] OWNER): Continue per Dr. breen Assessment & Plan (12/21/2019 4:36 PM ORTHODONTIST [employer] BUSINESS OWNER): Continue per Dr. Fong. 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 sin Assessment & Plan (01/11/2022 9:13 AM ORTHODONTIST [employer] OWNER): Continue per Dr. breen Assessment & Plan (07/19/2021 9:02 AM CDT): Continue per Dr. Fong Assessment & Plan (01/10/2021 10:01 AM ORTHOD[employer]IST [employer] OWNER): Managed by Endocrine On Synthroid brand Assessment & Plan (07/10/2020 9:00 PM CDT): Continue levothyroxine Assessment & Plan (01/04/2020 8:29 PM ORTHODONTIST [employer] OWNER): Continue synthroid. Labs stable. Assessment & Plan (12/21/2019 4:35 PM ORTHODONTIST [employer] OWNER): Continue per Dr. Fong, endocrine. Elevated blood pressure read ing without diagnosis of hypertension 12/21/2019 Assessment & Plan (01/10/2021 10:02 AM ORTHODONTIST [employer] OWNER): Continue to monitor readings. Still borderline Assessment & Plan (01/04/2020 8:31 PM ORTHODONTIST [employer] BUSINESS OWNER): Stable. Continue to monitor closely Assessment & Plan (12/21/2019 4:37 PM ORTHODONTIST [employer] OWNER): This is a significant, separately identifiable problem [...] PPI Assessment & Plan (01/11/2022 9:13 AM ORTHOD[employer]IST [employer] OWNER): Continue PPI. Assessment & Plan (07/19/2021 9:03 AM CDT): Stable with prn PPI Assessment & Plan (01/10/2021 9:59 AM ORTHODONTIST [employer] OWNER): Continue PPI Assessment & Plan (07/10/2020 8:59 PM CDT): Continue PPI If tightening continues, will return to Dr. Reynoso for possible EGD Assessment & Plan (01/04/2020 8:28 PM ORTHODONTIST [employer] OWNER): Continue the PPI Assessment & Plan (12/21/2019 4:34 PM ORTHOD[employer]IST [employer] OWNER): Continue PPI History of bilateral breast implants 12/21/2019 Assessment & Plan (01/10/2021 10:04 AM ORTHOD[employer]IST [employer] OWNER): Patient states Dr. Caldwell and Dr. Scruggs are working on her possible implants leaking vs ripple etc. She will keep us up to date. Assessment & Plan (07/10/2020 9:00 PM CDT): Continue per Dr. Scruggs Assessment & Plan (01/04/2020 8:30 PM ORTHODONTIST [employer] OWNER): Continue per Dr. Healy Age-related osteoporosis wit hout current pathological fracture 12/21/2019 Assessment & Plan (08/06/2022 9:01 PM CDT): Continue Fosamax calcium vitamin-D and exercise. Dex is monitored by Assessment & Plan (01/11/2022 9:13 AM ORTHODONTIST [employer] OWNER): Continue per Dr. breen. She is tolerating the Fosamax. Encouraged calcium vitamin-D and exercise. Assessment & Plan (07/19/2021 9:04 AM CDT): Continue calcium and vitamin D. Request DXA -- she states she plans to review with Dr. Fong at her next visit. Assessment & Plan (01/10/2021 10:01 AM ORTHODONTIST [employer] OWNER): Dr. Caldwell/[employer]AM[employer]ER manages fosamax and DXA. Assessment & Plan (07/10/2020 8:59 PM CDT): Continue fosamax Encourage calcium, vitamin D and weight bearing exercise to maintain the good bone strength. Assessment & Plan (01/04/2020 8:28 PM ORTHODONTIST [employer] BUSINESS OWNER): Continue with Fosamax. Dr. Caldwell manages Assessment & Plan (12/21/2019 4:35 PM ORTHODONTIST [employer] OWNER): Continue Fosomax and calcium, vitD and exercise. Stress 12/21/2019 Assessment & Plan (07/10/2020 9:01 PM CDT): Continue to montior. States ok currently without medication Assessment & Plan (01/04/2020 8:30 PM ORTHOD[employer]IST [employer] OWNER): Pt feels like all is stable. Wants to continue to monitor without meds. 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 Fong. Continue levothyroxine Hyperglycemia 11/25/2019 Assessment & Plan (08/06/2022 9:00 PM CDT): Pre-diabetes/hyperglycemia is a precursor to Dm. Stressed importance of working on diet (decrease your simple sugars and one carbohydrate with each meal) and increase you exercise to achieve weight loss and this will help prevent you from progressing to diabetes. Assessment & Plan (01/11/2022 9:13 AM ORTHODONTIST [employer] OWNER): Monitor labs. Continue activity and weight loss. [...] 30#s Assessment & Plan (01/10/2021 10:01 AM ORTHOD[employer]IST [employer] OWNER): Pre-diabetes is a precursor to Dm. Stressed [...] diabetes. Assessment & Plan (01/04/2020 8:29 PM ORTHOD[employer]IST [employer] OWNER): A1c is normal Assessment & Plan (12/21/2019 4:35 PM ORTHODONTIST [employer] OWNER): This is a significant, separately identifiable problem [...] needed. Assessment & Plan (01/11/2022 9:13 AM ORTHODONTIST [employer] OWNER): Encouraged patient to follow fat/low chol diet [...] needed. Assessment & Plan (01/04/2020 8:28 PM ORTHODONTIST [employer] OWNER): Encouraged patient to continue low fat/low chol diet. Continue exercise. Increase good fats in the diet. Monitor labs as needed. Assessment & Plan (12/21/2019 4:36 PM ORTHODONTIST [employer] OWNER): Encouraged patient to continue low fat/low chol [...] 01/10/20212020 Assessment & Plan (01/10/2021 8:15 AM ORTHODONTIST [employer] OWNER): Obesity is unchanged. Discussed the patient's BMI. The BMI is above average. BMI management plan is completed. BMI Follow-up includes: nutrition counseling, exercise counseling and education provided. BMI 33.0-33.9,adult 01/10/2021 07/19/20 21 Assessment & Plan (01/10/2021 8:16 AM ORTHODONTIST [employer] OWNER): Obesity is unchanged. Discussed the patient's BMI. [...] provided. Assessment & Plan (01/01/2020 8:48 AM ORTHODONTIST [employer] OWNER): Obesity is unchanged. Discussed the patient's BMI. The BMI is above average. BMI management plan is completed. BMI Follow-up includes: nutrition counseling, exercise counseling and education provided. Medicare annual wellness visit, initial 12/21/2019 01/01/2020 Assessment & Plan (12/21/2019 4:37 PM ORTHODONTIST [employer] OWNER): Encouraged healthy lifestyle, good nutrition and exercise. Encouraged Calcium and Vitamin D and weight bearing exercise for bone health. Reviewed immunizations Reviewed age appropirate screenings. Documentation is on the chart Need for 23-polyvalent pneum ococcal polysaccharide vaccine 12/21/2019 01/01/2020 Assessment & Plan (12/21/2019 4:37 PM ORTHOD[employer]IST [employer] OWNER): Updated in office today Positive depression screening 12/21/2019 01/01/2020 Assessment & Plan (12/21/2019 4:39 PM ORTHODONTIST [employer] BUSINESS OWNER): See stress. May be situational. Monitor closely BMI 34.0-34.9,adult 11/25/2019 01/01/20 Assessment & Plan (12/21/2019 4:36 PM ORTHODONTIST [employer] OWNER): Obesity is unchanged. Discussed the patient's BMI. [...] provided. Assessment & Plan (01/01/2020 8:48 AM ORTHODONTIST [employer] OWNER): Obesity is unchanged. Discussed the patient's BMI. The BMI is above average. BMI management plan is completed. BMI Follow-up includes: nutrition counseling, exercise counseling and education provided. Assessment & Plan (12/21/2019 4:34 PM ORTHODONTIST [employer] OWNER): Obesity is unchanged. Discussed the patient's BMI. The BMI is above average. BMI management plan is completed. BMI Follow-up includes: nutrition counseling, exercise counseling and education provided. Other fatigue 11/25/2019 01/01/2020 Assessment & Plan (12/21/2019 4:37 PM ORTHODONTIST [employer] OWNER): Probably multifactorial. Check labs and followup to [...] on file Legal Sex Female 6:32 PM ORTHODONTIST [employer] OWNER Gender Identity Not on file Sexual Orientation [...] 8:39 AM CDT Height 165.1 cm (5' 5) 07/24/2022 8:39 AM CDT Body Mass Index [...] - 2023-2 5 season) 2024 02/02/2021, 01/05/2021 DTaP/Tdap/Td Vaccine (2 - Td or Tdap) 11/12/2024 11/12/2014 Influenza Vaccine (#1) 2025 0, 07/23/2019, 07/29/2018, Additional history exists Colon Cancer Screening-CT Colonography Discontinued 01/31/2019 Colon [...] Laterality Modality Breast Bilateral Mammography Chelsey Haque NURSING AGENCY MANAGER IMG MAMMO PROC EDURES Final Result * DEXA SCAN (04/20/2021) Historical Provider HEALTH MAINTENANCE Final Result * COLONOSCOPY (01/31/2019) Colonoscopy Abnormal Comment:Reynoso-Family HX Historical Provider HEALTH MAINTENANCE Final Result from Last 3 Months or Most Recently Relevant to Health Maintenance Insurance [facility] MEDICARE ADVANTAGE Care Teams Medical Assistant Prn Relationship Specialty Start Date End Date Kierra Olivia PA [address] [facility] [address] [place] [address] PCP - General Internal Medicine 09/29/19
--- OUTSIDE RECORDS SUMMARY | 2025-06-12 11:54 | XMS_ITS | Referral Summary ---
Author Organization [facility] [address] [facility] Address [address] [place] [address] Care Team Providers Care Restaurant Maintenance Technician Name Role Phone Kierra Olivia Primary Care Provider [phone] Allergies No known active allergies Medications alendronate [...] maintain. Assessment & Plan (01/11/2022 8:27 AM ASSOCIATE BROKER): Weight/BMI is in healthy range. Continue healthy lifestyle to maintain. Medicare annual wellness visit, subsequent 01/09 Assessment & Plan (01/11/2022 9:14 AM ASSOCIATE BROKER): Encouraged healthy lifestyle, good nutrition and exercise. [...] screenings. Assessment & Plan (01/09/2021 9:17 PM ASSOCIATE BROKER): Encouraged healthy lifestyle, good nutrition and exercise. [...] labs. Assessment & Plan (01/11/2022 9:14 AM ASSOCIATE BROKER): Kidney function with continued stability. Continue to avoid renal toxic drugs. Assessment & Plan (07/19/2021 9:03 AM CDT): Avoid nephrotoxic drugs including NSAIDs. Monitor labs. Assessment & Plan (01/10/2021 9:59 AM ASSOCIATE BROKER): Avoid nephrotoxic drugs including NSAIDs. Monitor labs. Assessment & Plan (07/10/2020 8:59 PM CDT): Avoid nephrotoxic drugs including NSAIDs. Monitor labs. Assessment & Plan (01/04/2020 8:28 PM ASSOCIATE BROKER): Avoid nephrotoxic drugs including NSAIDs. Monitor labs. Multiple thyroid nodules 12/21/2019 Assessment & Plan (08/06/2022 9:00 PM CDT): Continue per Dr. Breen she manages the thyroid nodules and thyroid levels Assessment & Plan (01/11/2022 9:13 AM ASSOCIATE BROKER): Continue per Dr. breen Assessment & Plan (12/21/2019 4:36 PM ASSOCIATE BROKER): Continue per Dr. Fong. 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 sin Assessment & Plan (01/11/2022 9:13 AM ASSOCIATE BROKER): Continue per Dr. breen Assessment & Plan (07/19/2021 9:02 AM CDT): Continue per Dr. Fong Assessment & Plan (01/10/2021 10:01 AM ASSOCIATE BROKER): Managed by Endocrine On Synthroid brand Assessment & Plan (07/10/2020 9:00 PM CDT): Continue levothyroxine Assessment & Plan (01/04/2020 8:29 PM ASSOCIATE BROKER): Continue synthroid. Labs stable. Assessment & Plan (12/21/2019 4:35 PM ASSOCIATE BROKER): Continue per Dr. Fong, endocrine. Elevated blood pressure read ing without diagnosis of hypertension 12/21/2019 Assessment & Plan (01/10/2021 10:02 AM ASSOCIATE BROKER): Continue to monitor readings. Still borderline Assessment & Plan (01/04/2020 8:31 PM ASSOCIATE BROKER): Stable. Continue to monitor closely Assessment & Plan (12/21/2019 4:37 PM ASSOCIATE BROKER): This is a significant, separately identifiable problem [...] PPI Assessment & Plan (01/11/2022 9:13 AM ASSOCIATE BROKER): Continue PPI. Assessment & Plan (07/19/2021 9:03 AM CDT): Stable with prn PPI Assessment & Plan (01/10/2021 9:59 AM ASSOCIATE BROKER): Continue PPI Assessment & Plan (07/10/2020 8:59 PM CDT): Continue PPI If tightening continues, will return to Dr. Reynoso for possible EGD Assessment & Plan (01/04/2020 8:28 PM ASSOCIATE BROKER): Continue the PPI Assessment & Plan (12/21/2019 4:34 PM ASSOCIATE BROKER): Continue PPI History of bilateral breast implants 12/21/2019 Assessment & Plan (01/10/2021 10:04 AM ASSOCIATE BROKER): Patient states Dr. Caldwell and Dr. Scruggs are working on her possible implants leaking vs ripple etc. She will keep us up to date. Assessment & Plan (07/10/2020 9:00 PM CDT): Continue per Dr. Scruggs Assessment & Plan (01/04/2020 8:30 PM ASSOCIATE BROKER): Continue per Dr. Healy Age-related osteoporosis wit hout current pathological fracture 12/21/2019 Assessment & Plan (08/06/2022 9:01 PM CDT): Continue Fosamax calcium vitamin-D and exercise. Dex is monitored by Assessment & Plan (01/11/2022 9:13 AM ASSOCIATE BROKER): Continue per Dr. breen. She is tolerating the Fosamax. Encouraged calcium vitamin-D and exercise. Assessment & Plan (07/19/2021 9:04 AM CDT): Continue calcium and vitamin D. Request DXA -- she states she plans to review with Dr. Fong at her next visit. Assessment & Plan (01/10/2021 10:01 AM ASSOCIATE BROKER): Dr. Caldwell/[employer] SPORTSC[employer]ER manages fosamax and DXA. Assessment & Plan (07/10/2020 8:59 PM CDT): Continue fosamax Encourage calcium, vitamin D and weight bearing exercise to maintain the good bone strength. Assessment & Plan (01/04/2020 8:28 PM ASSOCIATE BROKER): Continue with Fosamax. Dr. Caldwell manages Assessment & Plan (12/21/2019 4:35 PM ASSOCIATE BROKER): Continue Fosomax and calcium, vitD and exercise. Stress 12/21/2019 Assessment & Plan (07/10/2020 9:01 PM CDT): Continue to montior. States ok currently without medication Assessment & Plan (01/04/2020 8:30 PM ASSOCIATE BROKER): Pt feels like all is stable. Wants to continue to monitor without meds. 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 Fong. Continue levothyroxine Hyperglycemia 11/25/2019 Assessment & Plan (08/06/2022 9:00 PM CDT): Pre-diabetes/hyperglycemia is a precursor to Dm. Stressed importance of working on diet (decrease your simple sugars and one carbohydrate with each meal) and increase you exercise to achieve weight loss and this will help prevent you from progressing to diabetes. Assessment & Plan (01/11/2022 9:13 AM ASSOCIATE BROKER): Monitor labs. Continue activity and weight loss. [...] 30#s Assessment & Plan (01/10/2021 10:01 AM ASSOCIATE BROKER): Pre-diabetes is a precursor to Dm. Stressed [...] diabetes. Assessment & Plan (01/04/2020 8:29 PM ASSOCIATE BROKER): A1c is normal Assessment & Plan (12/21/2019 4:35 PM ASSOCIATE BROKER): This is a significant, separately identifiable problem [...] needed. Assessment & Plan (01/11/2022 9:13 AM ASSOCIATE BROKER): Encouraged patient to follow fat/low chol diet [...] needed. Assessment & Plan (01/04/2020 8:28 PM ASSOCIATE BROKER): Encouraged patient to continue low fat/low chol diet. Continue exercise. Increase good fats in the diet. Monitor labs as needed. Assessment & Plan (12/21/2019 4:36 PM ASSOCIATE BROKER): Encouraged patient to continue low fat/low chol [...] 01/10/20212020 Assessment & Plan (01/10/2021 8:15 AM ASSOCIATE BROKER): Obesity is unchanged. Discussed the patient's BMI. The BMI is above average. BMI management plan is completed. BMI Follow-up includes: nutrition counseling, exercise counseling and education provided. BMI 33.0-33.9,adult 01/10/2021 07/19/20 21 Assessment & Plan (01/10/2021 8:16 AM ASSOCIATE BROKER): Obesity is unchanged. Discussed the patient's BMI. [...] provided. Assessment & Plan (01/01/2020 8:48 AM ASSOCIATE BROKER): Obesity is unchanged. Discussed the patient's BMI. The BMI is above average. BMI management plan is completed. BMI Follow-up includes: nutrition counseling, exercise counseling and education provided. Medicare annual wellness visit, initial 12/21/2019 01/01/2020 Assessment & Plan (12/21/2019 4:37 PM ASSOCIATE BROKER): Encouraged healthy lifestyle, good nutrition and exercise. Encouraged Calcium and Vitamin D and weight bearing exercise for bone health. Reviewed immunizations Reviewed age appropirate screenings. Documentation is on the chart Need for 23-polyvalent pneum ococcal polysaccharide vaccine 12/21/2019 01/01/2020 Assessment & Plan (12/21/2019 4:37 PM ASSOCIATE BROKER): Updated in office today Positive depression screening 12/21/2019 01/01/2020 Assessment & Plan (12/21/2019 4:39 PM ASSOCIATE BROKER): See stress. May be situational. Monitor closely BMI 34.0-34.9,adult 11/25/2019 01/01/20 Assessment & Plan (12/21/2019 4:36 PM ASSOCIATE BROKER): Obesity is unchanged. Discussed the patient's BMI. [...] provided. Assessment & Plan (01/01/2020 8:48 AM ASSOCIATE BROKER): Obesity is unchanged. Discussed the patient's BMI. The BMI is above average. BMI management plan is completed. BMI Follow-up includes: nutrition counseling, exercise counseling and education provided. Assessment & Plan (12/21/2019 4:34 PM ASSOCIATE BROKER): Obesity is unchanged. Discussed the patient's BMI. The BMI is above average. BMI management plan is completed. BMI Follow-up includes: nutrition counseling, exercise counseling and education provided. Other fatigue 11/25/2019 01/01/2020 Assessment & Plan (12/21/2019 4:37 PM ASSOCIATE BROKER): Probably multifactorial. Check labs and followup to [...] on file Legal Sex Female 6:32 PM ASSOCIATE BROKER Gender Identity Not on file Sexual Orientation [...] Laterality Modality Breast Bilateral Mammography Chelsey Haque BOBBIN WINDER TENDER IMG MAMMO PROC EDURES Final Result * DEXA SCAN (04/20/2021) Historical Provider HEALTH MAINTENANCE Final Result * COLONOSCOPY (01/31/2019) Colonoscopy Abnormal Comment:Reynoso-Family HX Historical Provider HEALTH MAINTENANCE Final Result from Last 3 Months or Most Recently Relevant to Health Maintenance Insurance [facility] MEDIC[facility] AD[facility] Care Teams Restaurant Maintenance Technician Relationship Specialty Start Date End Date Kierra Olivia PA [facility] [address] [place] [address] PCP - General Internal Medicine 09/29/19
== END 2025-06-12 11:51 | disposition home or self-care (01) ==
LOC: ANHLAB 11:51
PROVIDERS: PCP Physician Assistant Surgical; Visit Provider Surgery Plastic and Reconstructive Surgery
DX: D48.5 Neoplasm of uncertain behavior of skin (principal)
CPT/HCPCS: 88305

== ENCOUNTER 2025-06-29 09:42 | Outpatient (CLI) | payer MEDICARE, SELFPAY ==
--- NOTE | ~2025-06-29 | DEXA_ITS ---
Bone Density Report Name: IVETTE STEWARD Age: 74 Sex: Female Ethnicity: White Date of : 1950 Indication: osteopenia; height loss; Referring Provider: Jazzy Ho Study: Bone densitometry was performed. Exam Date: June 29, 2025 Accession number: [id number] Bone Density: Region BMD T-score Z-score Classification AP Spine(L1-L4) 0.803 -2.2 0.1 Osteopenia Femoral Neck (Left) 0.662 -1.7 0.3 Osteopenia Total Hip (Left) 0.741 -1.6 0.0 Osteopenia Femoral Neck (Right) 0.674 -1.6 0.4 Osteopenia Total Hip (Right) 0.720 -1.8 -0.2 Osteopenia Total Hip Mean 0.730 -1.7 -0.1 Osteopenia World Health Organization criteria for BMD impression classify patients as: Normal (T-score at or above -1.0), Osteopenia (T-score between -1.0 and -2.5), or Osteoporosis (T-score at or below -2.5). 10-year Fracture Risk(1): Major Osteoporotic Fracture 10% Hip Fracture 1.8% Reported Risk Factors: [place] (), Neck BMD=0.662, BMI=33.1 (1) FRAX(R) Version 3.08. Fracture probability calculated for an untreated patient. Fracture probability may be lower if the patient has received treatment. Previous Exams: -- Region Exam Age BMD T-score BMD Change BMD Change Date g/cm2 vs Baseline vs Previous -- AP Spine (L1-L4) 06/29/2025 74 0.803 -2.2 0.5%# -2.6% 04/27/2023 72 0.825 -2.0 3.2%# 2.4% 04/20/2021 70 0.805 -2.2 0.8%# -1.3%# 01/10/2019 68 0.816 -2.1 2.1%# -0.7% 12/04/2014 64 0.822 -2.0 2.8%# 7.8%# 10/24/2012 62 0.762 -2.6 -4.7%# -1.9% 10/04/2009 59 0.777 -2.5 -2.8%# -11.3%* 04/19/2007 56 0.876 -1.6 9.6%# 9.6%# 06/10/2004 53 0.799 -2.3 Total Hip(Left) 06/29/2025 74 0.741 -1.6 -7.1%# -5.8%* 04/27/2023 72 0.786 -1.3 -1.4%# -2.8% 04/20/2021 70 0.809 -1.1 1.5%# -1.3%# 01/10/2019 68 0.820 -1.0 2.9%# 3.6%* 12/04/2014 64 0.792 -1.2 -0.7%# -3.0%# 10/24/2012 62 0.816 -1.0 2.3%# -0.2% 10/04/2009 59 0.817 -1.0 2.5%# 3.0% 04/19/2007 56 0.794 -1.2 -0.5%# -0.5%# 06/10/2004 53 0.797 -1.2 Total Hip(Right) 06/29/2025 74 0.720 -1.8 -0.3%# -3.6% 04/27/2023 72 0.747 -1.6 3.5%# 0.3% 04/20/2021 70 0.745 -1.6 3.2%# -3.5%# 01/10/2019 68 0.772 -1.4 6.9%# 5.1%* 12/04/2014 64 0.734 -1.7 1.7%# -2.7%# 10/24/2012 62 0.754 -1.5 4.5%# -2.6% 10/04/2009 59 0.774 -1.4 7.2%# 4.2%* 04/19/2007 56 0.743 -1.6 2.9%# 2.9%# 06/10/2004 53 0.722 -1.8 -- *Denotes significance at 95% confidence level, LSC for AP Spine = 0.022 g/cm2, LSC for Total Hip = 0.027 g/cm2 # Denotes dissimilar scan types or analysis methods Clinical Information Provided by Patient: Has used the following medications: Vitamin D, Calcium Patient maximum height was 67 Menopause Age: 53 No regular weight bearing exercise Onset of menses at age 17 Number of children 2 Impression: The patient has low bone mass, based on the Total Spine T-score. The patient has an estimated ten-year risk of hip fracture of 1.8% and an estimated ten-year risk of major fracture of 10%, based on the WHO FRAX algorithm. The BMD for the Total Hip(Left) decreased, changing by -5.8% since the last DXA exam. Discussion: BONE DENSITY IS LOW AT ONE OR MORE SKELETAL SITES. This patient's lowest T-score is low at one or more skeletal sites. It meets the World Health Organization's (WHO) criteria for ?low bone mass? (T-score between -1.0 and -2.5). The patient's 10-year risk of fracture as calculated by FRAX is less than the threshold where pharmacological therapy is recommended by the National Osteoporosis Foundation (NOF). However, all treatment decisions require clinical judgment and consideration of individual patient factors, including patient preferences, comorbidities, previous drug use, risk factors not captured in the FRAX model (e.g., frailty, falls, vitamin D deficiency, increased bone turnover, interval significant decline in bone density) and possible under or overestimation of fracture risk by FRAX. The patient should follow a healthful lifestyle (good nutrition with adequate calcium and vitamin D, and appropriate weight-bearing exercise). Follow-Up: Consider repeating this study in 2 years to reassess this patient's status, or sooner if there is some new clinical indication. Reported by: BALJINDER on 06/29/2025 1:58:00 PM. Reviewed, dictated and finalized at location A.
== END 2025-06-29 09:43 | disposition home or self-care (01) ==
PROVIDERS: PCP Obstetrics & Gynecology Gynecology; Visit Provider Internal Medicine Endocrinology, Diabetes & Metabolism
DX: M85.89 Other specified disorders of bone density and structure, multiple sites (principal); E03.9 Hypothyroidism, unspecified
CPT/HCPCS: 77080

== ENCOUNTER 2025-07-09 08:37 | Outpatient (NON) | payer MEDICARE, SELFPAY ==
--- NOTE | 2025-07-09 | S_PTH ---
PATIENT: Manju Hart LOC: [facility] U#:[id number] AGE/SX: 74/F ROOM: RE07/09/[address]: Federico Anne MD : 1950 BED: DIS: 07/09/2025 SPEC #: [id number] RECD: 07/10/25 09:17 STATUS: EMANUEL RECarl #: [id number] DMITRY: 07/09/25 00:[address]: Federico Anne DEPT: [facility] Surgical RECD BY: Cassidy Cervantes ENTERED: 07/10/25 09:19 SP TYPE: Surgical OTHR DR: CONSTRUCTION MATERIALS TESTER PHYSICIAN Tissues: A - Lipoma Procedures: Hematoxylin and Eosin Stain Gross and Microscopic Level 3
--- OUTSIDE RECORDS SUMMARY | 2025-07-10 08:44 | XMS_ITS | Clinical Summary ---
Author Organization [facility] [place] [address] [facility] Address [address] [place] [address] Care Team Providers Care Medical Collections Representative Name Role Phone Kierra Olivia Primary Care Provider [phone]- [phone] Allergies No known active allergies Medications alendronate [...] maintain. Assessment & Plan (01/11/2022 8:27 AM CONCIERGE MANAGER): Weight/BMI is in healthy range. Continue healthy lifestyle to maintain. Medicare annual wellness visit, subsequent 01/09 Assessment & Plan (01/11/2022 9:14 AM CONCIERGE MANAGER): Encouraged healthy lifestyle, good nutrition and exercise. [...] screenings. Assessment & Plan (01/09/2021 9:17 PM CONCIERGE MANAGER): Encouraged healthy lifestyle, good nutrition and exercise. [...] labs. Assessment & Plan (01/11/2022 9:14 AM CONCIERGE MANAGER): Kidney function with continued stability. Continue to avoid renal toxic drugs. Assessment & Plan (07/19/2021 9:03 AM CDT): Avoid nephrotoxic drugs including NSAIDs. Monitor labs. Assessment & Plan (01/10/2021 9:59 AM CONCIERGE MANAGER): Avoid nephrotoxic drugs including NSAIDs. Monitor labs. Assessment & Plan (07/10/2020 8:59 PM CDT): Avoid nephrotoxic drugs including NSAIDs. Monitor labs. Assessment & Plan (01/04/2020 8:28 PM CONCIERGE MANAGER): Avoid nephrotoxic drugs including NSAIDs. Monitor labs. Multiple thyroid nodules 12/21/2019 Assessment & Plan (08/06/2022 9:00 PM CDT): Continue per Dr. Breen she manages the thyroid nodules and thyroid levels Assessment & Plan (01/11/2022 9:13 AM CONCIERGE MANAGER): Continue per Dr. breen Assessment & Plan (12/21/2019 4:36 PM CONCIERGE MANAGER): Continue per Dr. Fong. 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 sin Assessment & Plan (01/11/2022 9:13 AM CONCIERGE MANAGER): Continue per Dr. breen Assessment & Plan (07/19/2021 9:02 AM CDT): Continue per Dr. Fong Assessment & Plan (01/10/2021 10:01 AM CONCIERGE MANAGER): Managed by Endocrine On Synthroid brand Assessment & Plan (07/10/2020 9:00 PM CDT): Continue levothyroxine Assessment & Plan (01/04/2020 8:29 PM CONCIERGE MANAGER): Continue synthroid. Labs stable. Assessment & Plan (12/21/2019 4:35 PM CONCIERGE MANAGER): Continue per Dr. Fong, endocrine. Elevated blood pressure read ing without diagnosis of hypertension 12/21/2019 Assessment & Plan (01/10/2021 10:02 AM CONCIERGE MANAGER): Continue to monitor readings. Still borderline Assessment & Plan (01/04/2020 8:31 PM CONCIERGE MANAGER): Stable. Continue to monitor closely Assessment & Plan (12/21/2019 4:37 PM CONCIERGE MANAGER): This is a significant, separately identifiable problem [...] PPI Assessment & Plan (01/11/2022 9:13 AM CONCIERGE MANAGER): Continue PPI. Assessment & Plan (07/19/2021 9:03 AM CDT): Stable with prn PPI Assessment & Plan (01/10/2021 9:59 AM CONCIERGE MANAGER): Continue PPI Assessment & Plan (07/10/2020 8:59 PM CDT): Continue PPI If tightening continues, will return to Dr. Reynoso for possible EGD Assessment & Plan (01/04/2020 8:28 PM CONCIERGE MANAGER): Continue the PPI Assessment & Plan (12/21/2019 4:34 PM CONCIERGE MANAGER): Continue PPI History of bilateral breast implants 12/21/2019 Assessment & Plan (01/10/2021 10:04 AM CONCIERGE MANAGER): Patient states Dr. Caldwell and Dr. Scruggs are working on her possible implants leaking vs ripple etc. She will keep us up to date. Assessment & Plan (07/10/2020 9:00 PM CDT): Continue per Dr. Scruggs Assessment & Plan (01/04/2020 8:30 PM CONCIERGE MANAGER): Continue per Dr. Healy Age-related osteoporosis wit hout current pathological fracture 12/21/2019 Assessment & Plan (08/06/2022 9:01 PM CDT): Continue Fosamax calcium vitamin-D and exercise. Dex is monitored by Assessment & Plan (01/11/2022 9:13 AM CONCIERGE MANAGER): Continue per Dr. breen. She is tolerating the Fosamax. Encouraged calcium vitamin-D and exercise. Assessment & Plan (07/19/2021 9:04 AM CDT): Continue calcium and vitamin D. Request DXA -- she states she plans to review with Dr. Fong at her next visit. Assessment & Plan (01/10/2021 10:01 AM CONCIERGE MANAGER): Dr. Caldwell/TUB WASH OPERATOR manages fosamax and DXA. Assessment & Plan (07/10/2020 8:59 PM CDT): Continue fosamax Encourage calcium, vitamin D and weight bearing exercise to maintain the good bone strength. Assessment & Plan (01/04/2020 8:28 PM CONCIERGE MANAGER): Continue with Fosamax. Dr. Caldwell manages Assessment & Plan (12/21/2019 4:35 PM CONCIERGE MANAGER): Continue Fosomax and calcium, vitD and exercise. Stress 12/21/2019 Assessment & Plan (07/10/2020 9:01 PM CDT): Continue to montior. States ok currently without medication Assessment & Plan (01/04/2020 8:30 PM CONCIERGE MANAGER): Pt feels like all is stable. Wants to continue to monitor without meds. 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 Fong. Continue levothyroxine Hyperglycemia 11/25/2019 Assessment & Plan (08/06/2022 9:00 PM CDT): Pre-diabetes/hyperglycemia is a precursor to Dm. Stressed importance of working on diet (decrease your simple sugars and one carbohydrate with each meal) and increase you exercise to achieve weight loss and this will help prevent you from progressing to diabetes. Assessment & Plan (01/11/2022 9:13 AM CONCIERGE MANAGER): Monitor labs. Continue activity and weight loss. [...] 30#s Assessment & Plan (01/10/2021 10:01 AM CONCIERGE MANAGER): Pre-diabetes is a precursor to Dm. Stressed [...] diabetes. Assessment & Plan (01/04/2020 8:29 PM CONCIERGE MANAGER): A1c is normal Assessment & Plan (12/21/2019 4:35 PM CONCIERGE MANAGER): This is a significant, separately identifiable problem [...] needed. Assessment & Plan (01/11/2022 9:13 AM CONCIERGE MANAGER): Encouraged patient to follow fat/low chol diet [...] needed. Assessment & Plan (01/04/2020 8:28 PM CONCIERGE MANAGER): Encouraged patient to continue low fat/low chol diet. Continue exercise. Increase good fats in the diet. Monitor labs as needed. Assessment & Plan (12/21/2019 4:36 PM CONCIERGE MANAGER): Encouraged patient to continue low fat/low chol [...] 01/10/20212020 Assessment & Plan (01/10/2021 8:15 AM CONCIERGE MANAGER): Obesity is unchanged. Discussed the patient's BMI. The BMI is above average. BMI management plan is completed. BMI Follow-up includes: nutrition counseling, exercise counseling and education provided. BMI 33.0-33.9,adult 01/10/2021 07/19/20 21 Assessment & Plan (01/10/2021 8:16 AM CONCIERGE MANAGER): Obesity is unchanged. Discussed the patient's BMI. [...] provided. Assessment & Plan (01/01/2020 8:48 AM CONCIERGE MANAGER): Obesity is unchanged. Discussed the patient's BMI. The BMI is above average. BMI management plan is completed. BMI Follow-up includes: nutrition counseling, exercise counseling and education provided. Medicare annual wellness visit, initial 12/21/2019 01/01/2020 Assessment & Plan (12/21/2019 4:37 PM CONCIERGE MANAGER): Encouraged healthy lifestyle, good nutrition and exercise. Encouraged Calcium and Vitamin D and weight bearing exercise for bone health. Reviewed immunizations Reviewed age appropirate screenings. Documentation is on the chart Need for 23-polyvalent pneum ococcal polysaccharide vaccine 12/21/2019 01/01/2020 Assessment & Plan (12/21/2019 4:37 PM CONCIERGE MANAGER): Updated in office today Positive depression screening 12/21/2019 01/01/2020 Assessment & Plan (12/21/2019 4:39 PM CONCIERGE MANAGER): See stress. May be situational. Monitor closely BMI 34.0-34.9,adult 11/25/2019 01/01/20 Assessment & Plan (12/21/2019 4:36 PM CONCIERGE MANAGER): Obesity is unchanged. Discussed the patient's BMI. [...] provided. Assessment & Plan (01/01/2020 8:48 AM CONCIERGE MANAGER): Obesity is unchanged. Discussed the patient's BMI. The BMI is above average. BMI management plan is completed. BMI Follow-up includes: nutrition counseling, exercise counseling and education provided. Assessment & Plan (12/21/2019 4:34 PM CONCIERGE MANAGER): Obesity is unchanged. Discussed the patient's BMI. The BMI is above average. BMI management plan is completed. BMI Follow-up includes: nutrition counseling, exercise counseling and education provided. Other fatigue 11/25/2019 01/01/2020 Assessment & Plan (12/21/2019 4:37 PM CONCIERGE MANAGER): Probably multifactorial. Check labs and followup to [...] on file Legal Sex Female 6:32 PM CONCIERGE MANAGER Gender Identity Not on file Sexual Orientation [...] Laterality Modality Breast Bilateral Mammography Chelsey Haque METAL MINER BLASTING IMG MAMMO PROC EDURES Final Result * DEXA SCAN (04/20/2021) Historical Provider HEALTH MAINTENANCE Final Result * COLONOSCOPY (01/31/2019) Colonoscopy Abnormal Comment:Reynoso-Family HX Historical Provider HEALTH MAINTENANCE Final Result from Last 3 Months or Most Recently Relevant to Health Maintenance Insurance [facility] MEDICARE ADVANTAGE Care Teams Medical Collections Representative Relationship Specialty Start Date End Date Kierra Olivia PA [address] [facility] [address] [place] [address] PCP - General Internal Medicine 09/29/19
== END 2025-07-09 08:38 | disposition home or self-care (01) ==
LOC: ANHLAB 07-10 08:38
PROVIDERS: Visit Provider Plastic Surgery
DX: R22.32 Localized swelling, mass and lump, left upper limb (principal)
CPT/HCPCS: 88304

== ENCOUNTER 2025-07-09 09:16 | Day surgery (SDC) | payer MEDICARE, SELFPAY ==
[2025-07-01 10:02] VITALS: BMI 33.3
--- NOTE | 2025-07-09 06:54 | P.OP_ITS ---
Procedure Note - Detailed Date of Procedure 07/09/25 Pre-op Diagnosis left axillary mass Post-op Diagnosis Same Procedure Performed excision left axillary mass Surgeon Federico Anne MD Plastics Scientist Kusum Starkey PA-C Anesthesia General Description of Procedure Patient was seen in the preoperative holding area where the consent form was signed and the area of the left posterior axillary mass was marked. Patient was taken back to the operating room and placed on the table in the right lateral decubitus position. Time-out was performed with Anesthesia, surgeon, and staff agreeing on patient's name, site, and surgery to be performed. SCDs were placed on the lower extremities and inflated. Antibiotics were given IV. After anesthesia administered sedation the area was prepped and draped in the usual sterile fashion. I injected 10 cc of 1% lidocaine with epinephrine and 0.5% Marcaine plain for local anesthesia. I proceeded with making an elliptical incision around the patient's previous scar from prior excision through skin and dermis with 15 blade scalpel. Bovie cautery was used to dissect through subcutaneous tissue down to the mass which appeared to be subfascial. Incision was made in the fascia and I proceeded with circumferential dissection of the mass and previous scar tissue off the surrounding tissue. I Irrigated with normal saline. I excised excess skin on the anterior and posterior aspects of the incision to reduce dog-ear formation and improve closure. Closure was done with 3-0 Vicryl for deep and dermal closure. 4-0 Monocryl was used for subcuticular closure. The mass measured 5.3 x 3 cm. Total length of closure was 6 cm. A dressing of Mastisol, Steri-Strips, 4 x 4 and pressure dressing was applied. The patient was awakened from anesthesia and transferred to the recovery room in stable condition Complications: None Estimated blood loss: 3 cc Disposition: Patient tolerated the procedure well and will go home later today Kusum Starkey PA-C was essential for positioning, retraction, closure and dressing placement [facility] Billing Surgery - Charge Forward: Surgery Billing ([id number] same for kusum adding )
--- NOTE | 2025-07-09 06:54 | WPDHPUPDATE1 ---
History and Physical Update Update Date/Time: 07/09/25 06:54 Patient seen and examined in pre-operative holding area. No interval change in medical history or symptoms. Patient remembers previous discussion of benefits and alternatives to procedure. Continues to desire to proceed with excision left posterior axillary mass. I reviewed the risks including but not limited to bleeding ,infection, asymmetry, undesireable cosmetic appearance, partial/total skin loss, no change or worsening of symptoms, change in sensation, contour irregularity, recurrence. I discussed the possible use of assistants and their level of participation in the case. Patient stated understanding and signed the consent form wishing to proceed
--- OUTSIDE RECORDS SUMMARY | 2025-07-09 09:22 | XMS_ITS | Clinical Summary ---
Author Organization [facility] [place] [address] [facility] Address [address] [place] [address] Care Team Providers Care Tipple Oiler Name Role Phone Kierra Olivia Primary Care Provider [phone]- [phone] Allergies No known active allergies Medications alendronate [...] maintain. Assessment & Plan (01/11/2022 8:27 AM NETWORK INFRASTRUCTURE ARCHITECT): Weight/BMI is in healthy range. Continue healthy lifestyle to maintain. Medicare annual wellness visit, subsequent 01/09 Assessment & Plan (01/11/2022 9:14 AM NETWORK INFRASTRUCTURE ARCHITECT): Encouraged healthy lifestyle, good nutrition and exercise. [...] screenings. Assessment & Plan (01/09/2021 9:17 PM NETWORK INFRASTRUCTURE ARCHITECT): Encouraged healthy lifestyle, good nutrition and exercise. [...] labs. Assessment & Plan (01/11/2022 9:14 AM NETWORK INFRASTRUCTURE ARCHITECT): Kidney function with continued stability. Continue to avoid renal toxic drugs. Assessment & Plan (07/19/2021 9:03 AM CDT): Avoid nephrotoxic drugs including NSAIDs. Monitor labs. Assessment & Plan (01/10/2021 9:59 AM NETWORK INFRASTRUCTURE ARCHITECT): Avoid nephrotoxic drugs including NSAIDs. Monitor labs. Assessment & Plan (07/10/2020 8:59 PM CDT): Avoid nephrotoxic drugs including NSAIDs. Monitor labs. Assessment & Plan (01/04/2020 8:28 PM NETWORK INFRASTRUCTURE ARCHITECT): Avoid nephrotoxic drugs including NSAIDs. Monitor labs. Multiple thyroid nodules 12/21/2019 Assessment & Plan (08/06/2022 9:00 PM CDT): Continue per Dr. Breen she manages the thyroid nodules and thyroid levels Assessment & Plan (01/11/2022 9:13 AM NETWORK INFRASTRUCTURE ARCHITECT): Continue per Dr. breen Assessment & Plan (12/21/2019 4:36 PM NETWORK INFRASTRUCTURE ARCHITECT): Continue per Dr. Fong. 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 sin Assessment & Plan (01/11/2022 9:13 AM NETWORK INFRASTRUCTURE ARCHITECT): Continue per Dr. breen Assessment & Plan (07/19/2021 9:02 AM CDT): Continue per Dr. Fong Assessment & Plan (01/10/2021 10:01 AM NETWORK INFRASTRUCTURE ARCHITECT): Managed by Endocrine On Synthroid brand Assessment & Plan (07/10/2020 9:00 PM CDT): Continue levothyroxine Assessment & Plan (01/04/2020 8:29 PM NETWORK INFRASTRUCTURE ARCHITECT): Continue synthroid. Labs stable. Assessment & Plan (12/21/2019 4:35 PM NETWORK INFRASTRUCTURE ARCHITECT): Continue per Dr. Fong, endocrine. Elevated blood pressure read ing without diagnosis of hypertension 12/21/2019 Assessment & Plan (01/10/2021 10:02 AM NETWORK INFRASTRUCTURE ARCHITECT): Continue to monitor readings. Still borderline Assessment & Plan (01/04/2020 8:31 PM NETWORK INFRASTRUCTURE ARCHITECT): Stable. Continue to monitor closely Assessment & Plan (12/21/2019 4:37 PM NETWORK INFRASTRUCTURE ARCHITECT): This is a significant, separately identifiable problem [...] PPI Assessment & Plan (01/11/2022 9:13 AM NETWORK INFRASTRUCTURE ARCHITECT): Continue PPI. Assessment & Plan (07/19/2021 9:03 AM CDT): Stable with prn PPI Assessment & Plan (01/10/2021 9:59 AM NETWORK INFRASTRUCTURE ARCHITECT): Continue PPI Assessment & Plan (07/10/2020 8:59 PM CDT): Continue PPI If tightening continues, will return to Dr. Reynoso for possible EGD Assessment & Plan (01/04/2020 8:28 PM NETWORK INFRASTRUCTURE ARCHITECT): Continue the PPI Assessment & Plan (12/21/2019 4:34 PM NETWORK INFRASTRUCTURE ARCHITECT): Continue PPI History of bilateral breast implants 12/21/2019 Assessment & Plan (01/10/2021 10:04 AM NETWORK INFRASTRUCTURE ARCHITECT): Patient states Dr. Caldwell and Dr. Scruggs are working on her possible implants leaking vs ripple etc. She will keep us up to date. Assessment & Plan (07/10/2020 9:00 PM CDT): Continue per Dr. Scruggs Assessment & Plan (01/04/2020 8:30 PM NETWORK INFRASTRUCTURE ARCHITECT): Continue per Dr. Healy Age-related osteoporosis wit hout current pathological fracture 12/21/2019 Assessment & Plan (08/06/2022 9:01 PM CDT): Continue Fosamax calcium vitamin-D and exercise. Dex is monitored by Assessment & Plan (01/11/2022 9:13 AM NETWORK INFRASTRUCTURE ARCHITECT): Continue per Dr. breen. She is tolerating the Fosamax. Encouraged calcium vitamin-D and exercise. Assessment & Plan (07/19/2021 9:04 AM CDT): Continue calcium and vitamin D. Request DXA -- she states she plans to review with Dr. Fong at her next visit. Assessment & Plan (01/10/2021 10:01 AM NETWORK INFRASTRUCTURE ARCHITECT): Dr. Caldwell/AEROSOL LINE OPERATOR manages fosamax and DXA. Assessment & Plan (07/10/2020 8:59 PM CDT): Continue fosamax Encourage calcium, vitamin D and weight bearing exercise to maintain the good bone strength. Assessment & Plan (01/04/2020 8:28 PM NETWORK INFRASTRUCTURE ARCHITECT): Continue with Fosamax. Dr. Caldwell manages Assessment & Plan (12/21/2019 4:35 PM NETWORK INFRASTRUCTURE ARCHITECT): Continue Fosomax and calcium, vitD and exercise. Stress 12/21/2019 Assessment & Plan (07/10/2020 9:01 PM CDT): Continue to montior. States ok currently without medication Assessment & Plan (01/04/2020 8:30 PM NETWORK INFRASTRUCTURE ARCHITECT): Pt feels like all is stable. Wants to continue to monitor without meds. 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 Fong. Continue levothyroxine Hyperglycemia 11/25/2019 Assessment & Plan (08/06/2022 9:00 PM CDT): Pre-diabetes/hyperglycemia is a precursor to Dm. Stressed importance of working on diet (decrease your simple sugars and one carbohydrate with each meal) and increase you exercise to achieve weight loss and this will help prevent you from progressing to diabetes. Assessment & Plan (01/11/2022 9:13 AM NETWORK INFRASTRUCTURE ARCHITECT): Monitor labs. Continue activity and weight loss. [...] 30#s Assessment & Plan (01/10/2021 10:01 AM NETWORK INFRASTRUCTURE ARCHITECT): Pre-diabetes is a precursor to Dm. Stressed [...] diabetes. Assessment & Plan (01/04/2020 8:29 PM NETWORK INFRASTRUCTURE ARCHITECT): A1c is normal Assessment & Plan (12/21/2019 4:35 PM NETWORK INFRASTRUCTURE ARCHITECT): This is a significant, separately identifiable problem [...] needed. Assessment & Plan (01/11/2022 9:13 AM NETWORK INFRASTRUCTURE ARCHITECT): Encouraged patient to follow fat/low chol diet [...] needed. Assessment & Plan (01/04/2020 8:28 PM NETWORK INFRASTRUCTURE ARCHITECT): Encouraged patient to continue low fat/low chol diet. Continue exercise. Increase good fats in the diet. Monitor labs as needed. Assessment & Plan (12/21/2019 4:36 PM NETWORK INFRASTRUCTURE ARCHITECT): Encouraged patient to continue low fat/low chol [...] 01/10/20212020 Assessment & Plan (01/10/2021 8:15 AM NETWORK INFRASTRUCTURE ARCHITECT): Obesity is unchanged. Discussed the patient's BMI. The BMI is above average. BMI management plan is completed. BMI Follow-up includes: nutrition counseling, exercise counseling and education provided. BMI 33.0-33.9,adult 01/10/2021 07/19/20 21 Assessment & Plan (01/10/2021 8:16 AM NETWORK INFRASTRUCTURE ARCHITECT): Obesity is unchanged. Discussed the patient's BMI. [...] provided. Assessment & Plan (01/01/2020 8:48 AM NETWORK INFRASTRUCTURE ARCHITECT): Obesity is unchanged. Discussed the patient's BMI. The BMI is above average. BMI management plan is completed. BMI Follow-up includes: nutrition counseling, exercise counseling and education provided. Medicare annual wellness visit, initial 12/21/2019 01/01/2020 Assessment & Plan (12/21/2019 4:37 PM NETWORK INFRASTRUCTURE ARCHITECT): Encouraged healthy lifestyle, good nutrition and exercise. Encouraged Calcium and Vitamin D and weight bearing exercise for bone health. Reviewed immunizations Reviewed age appropirate screenings. Documentation is on the chart Need for 23-polyvalent pneum ococcal polysaccharide vaccine 12/21/2019 01/01/2020 Assessment & Plan (12/21/2019 4:37 PM NETWORK INFRASTRUCTURE ARCHITECT): Updated in office today Positive depression screening 12/21/2019 01/01/2020 Assessment & Plan (12/21/2019 4:39 PM NETWORK INFRASTRUCTURE ARCHITECT): See stress. May be situational. Monitor closely BMI 34.0-34.9,adult 11/25/2019 01/01/20 Assessment & Plan (12/21/2019 4:36 PM NETWORK INFRASTRUCTURE ARCHITECT): Obesity is unchanged. Discussed the patient's BMI. [...] provided. Assessment & Plan (01/01/2020 8:48 AM NETWORK INFRASTRUCTURE ARCHITECT): Obesity is unchanged. Discussed the patient's BMI. The BMI is above average. BMI management plan is completed. BMI Follow-up includes: nutrition counseling, exercise counseling and education provided. Assessment & Plan (12/21/2019 4:34 PM NETWORK INFRASTRUCTURE ARCHITECT): Obesity is unchanged. Discussed the patient's BMI. The BMI is above average. BMI management plan is completed. BMI Follow-up includes: nutrition counseling, exercise counseling and education provided. Other fatigue 11/25/2019 01/01/2020 Assessment & Plan (12/21/2019 4:37 PM NETWORK INFRASTRUCTURE ARCHITECT): Probably multifactorial. Check labs and followup to [...] on file Legal Sex Female 6:32 PM NETWORK INFRASTRUCTURE ARCHITECT Gender Identity Not on file Sexual Orientation [...] Laterality Modality Breast Bilateral Mammography Chelsey Haque SENIOR SQL DATABASE DEVELOPER IMG MAMMO PROC EDURES Final Result * DEXA SCAN (04/20/2021) Historical Provider HEALTH MAINTENANCE Final Result * COLONOSCOPY (01/31/2019) Colonoscopy Abnormal Comment:Reynoso-Family HX Historical Provider HEALTH MAINTENANCE Final Result from Last 3 Months or Most Recently Relevant to Health Maintenance Insurance [facility] MEDICARE ADVANTAGE Care Teams Tipple Oiler Relationship Specialty Start Date End Date Kierra Olivia PA [address] [facility] [address] [place] [address] PCP - General Internal Medicine 09/29/19
[2025-07-09 09:33] VITALS: BP 180/72; PULSE 61; RESP 16; TEMP 37.3; O2SAT 98
[2025-07-09] MEDS: LACTATED RINGERS 1,000 ML 30 ML IV CONT (09:39)
[2025-07-09] MEDS: ACETAMINOPHEN 500 MG TABLET 1000 MG PO (09:44)
--- NOTE | 2025-07-09 10:01 | WPDANESEPPF ---
Anes - Initial Pre Proc Eval Procedure: Operation Date: 07/09/25 11:00 Proposed Procedures p Excision Left Posterior Axillary Mass - Federico Anne MD Date/Time: 07/09/25 10:01 Surgeon: Federico Anne MD Pre Op Diagnosis: unspec lump left breast Patient Data Age: 74 Gender: F Height: 1.65 m Weight: 92.1 kg Last Vital Signs Temp 99.1 F 07/09/25 09:33 Pulse 61 07/09/25 09:33 Resp 16 07/09/25 09:33 BP 180/72 H 07/09/25 09:33 Pulse Ox 98 07/09/25 09:33 O2 Del Method Room Air 07/09/25 09:33 Allergies Allergy/AdvReac Type Severity Reaction Status Date / Time No Known Allergies Allergy Verified 07/09/25 09:32 Home Medications ?Medication ?Instructions ?Recorded ?Confirmed ?Type Calcium 1,200 mg PO DAILY 10/25/19 07/09/25 History cholecalciferol (vitamin D3) 125 2,000 unit PO DAILY 10/25/19 07/09/25 History mcg (5,000 unit) tablet (Vitamin D3) mecobalamin (vitamin B12) 1,000 2,000 mcg PO DAILY 11/15/23 07/09/25 History mcg chewable tablet (B12 Active) meclizine 25 mg tablet 25 mg PO DAILY PRN Dizziness #30 01/26/25 07/09/25 Rx tabs omeprazole 20 mg capsule,delayed 20 mg PO DAILY PRN gerd 06/02/25 07/09/25 History release Synthroid 100 mcg tablet 100 mcg PO DAILY #30 tabs 06/30/25 07/09/25 Rx (levothyroxine) hydrocodone 5 mg-acetaminophen 325 1 tablet PO Q6-8H PRN pain #12 tabs 07/09/25 Rx mg tablet Patient hx anesthesia problems: none Family hx anesthesia problems: none Results Review: All pre-operative results and documents have been reviewed as part of the pre-operative evaluation. [facility] Past Medical History Medical History High cholesterol Osteoporosis Hyperthyroidism GERD (gastroesophageal reflux disease) Surgical History Surgical History History of tubal ligation History of knee replacement right knee 04/16/2018 Family History Family History Mother Family history of arthritis Family history of lung cancer Carcinoma of colon Family history of malignant neoplasm of breast in first degree relative Family history of lung disease Father Family history of heart disease in male family member before age 55 Other Family history of coronary artery disease Family history of malignant neoplasm Social History Social History (Updated 06/02/25 @ 08:08 by Stephanie José) Social History: Caffeine-chi tea Smoking status: Never smoker Second hand tobacco smoke exposure: No Alcohol intake: never Alcohol use details: Seldom Substance use: never Substance use type: does not use Do You Feel Safe in your Home?: Yes Lack of Transportation: No Lack of Food: Never True Current Housing: I Have Housing Concerned About Future Housing: No Difficulty Paying Gas/Electric Bills: No Difficulty Paying for Meds: No Currently Unemployed: No Education: High School Diploma/GED Difficulty w/ Childcare or Family Care: No Living arrangements: with family Occupation/Education: retired Gender identity (if verbalized by the patient): Female Spiritual care concerns: No Anes - Eval Final PreProcedure Day of Procedure 07/09/25 10:01 Heart: regular rate and rhythm Lungs: clear to auscultation Airway: Mallampati scale class 1 Neurological: alert and oriented ASA classification: II Anesthetic plan: proceed Anesthesia type and monitoring: monitored anesthesia care Results Review: All pre-operative results and documents have been reviewed as part of the pre-operative evaluation. Informed Consent: The patient's anesthetic plan and its attendant risks and benefits were discussed with the patient/family/POA. Questions were solicited and answers provided to the satisfaction of the patient/family/POA.
[2025-07-09] MEDS: ceFAZolin SODIUM 2 GM/20 ML SW SYRINGE IV PUSH (11:04)
--- NOTE | 2025-07-09 11:12 | WPDANESPN ---
Anes - Prog Note Post-Op Date/Time: 07/09/25 11:12 Vital Signs: Last Vital Signs Temp 99.1 F 07/09/25 09:33 Pulse 61 07/09/25 09:33 Resp 16 07/09/25 09:33 BP 180/72 H 07/09/25 09:33 Pulse Ox 98 07/09/25 09:33 O2 Del Method Room Air 07/09/25 09:33 Pain Score (VAS): no Patient Feedback: Patient satisfied with anesthetic care.
[2025-07-09] MEDS: LIDO 1%/EPINEPHRINE 1:100,000 20 ML VIAL 5 ML INFILTRATE (11:20)
[2025-07-09] MEDS: BUPivacaine HCL 0.5% 10 ML AMP 5 ML INFILTRATE (11:21)
[2025-07-09 11:29] VITALS: BP 124/65; PULSE 68; RESP 14; O2SAT 96
[2025-07-09 11:39] VITALS: BP 135/66; PULSE 62; RESP 16; O2SAT 98
[2025-07-09 11:49] VITALS: BP 121/63; PULSE 51; RESP 16; O2SAT 96
== END 2025-07-09 12:03 | disposition home or self-care (01) ==
PROVIDERS: Visit Provider Plastic Surgery
PROC: (CPT 21554; principal; 2025-07-09 11:00)
DX: N61.22 Granulomatous mastitis, left breast (principal); L92.3 Foreign body granuloma of the skin and subcutaneous tissue
CPT/HCPCS: 21554; 13101

== ENCOUNTER 2025-08-26 09:08 | Emergency (ER) | payer MEDICARE, SELFPAY ==
--- NOTE | ~2025-08-26 | XR_ITS ---
EXAMINATION: XR lumbar spine min 4V DATE: 08/26/2025 11:44 INDICATION: Low back pain TECHNIQUE: Anteroposterior, lateral, and bilateral oblique views of the lumbar spine, and cone-down lateral view of the lumbosacral junction were obtained. COMPARISON: None. FINDINGS: 5 mm anterolisthesis L5 on S1. Alignment is otherwise normal. Vertebral body heights are normal. Severe disc height loss with vacuum phenomena at L5-S1. Mild to moderate disc height loss at T9-T10 through T11-T12 and L4-L5 and mild disc height loss at T12-L1, L2-L3 and L3-L4. Severe right-sided and moderate left- sided facet osteoarthritis at L4-L5 and L5-S1. Mild facet osteoarthritis in the more cephalad lumbar spine. No pars interarticularis defects Sacral arches are intact. Bilateral sacroiliac joint spaces are relatively preserved. IMPRESSION: 1. Severe lumbosacral and mild to moderate lumbar and lower thoracic spondylosis. Reviewed, dictated and finalized at location A. IMPRESSION: 1. Severe lumbosacral and mild to moderate lumbar and lower thoracic spondylosi s.
[2025-08-26 09:22] VITALS: BP 150/64; PULSE 65; RESP 16; TEMP 36.3; O2SAT 99
--- OUTSIDE RECORDS SUMMARY | 2025-08-26 10:08 | XMS_ITS | Clinical Summary ---
Author Organization [facility] [place] [address] [facility] Address [address] [place] [address] Care Team Providers Care Manager Wellness Name Role Phone Kierra Olivia Primary Care Provider [phone] Allergies No known active allergies Medications alendronate [...] maintain. Assessment & Plan (01/11/2022 8:27 AM ARMORED CAR GUARD): Weight/BMI is in healthy range. Continue healthy lifestyle to maintain. Medicare annual wellness visit, subsequent 01/09 Assessment & Plan (01/11/2022 9:14 AM ARMORED CAR GUARD): Encouraged healthy lifestyle, good nutrition and exercise. [...] screenings. Assessment & Plan (01/09/2021 9:17 PM ARMORED CAR GUARD): Encouraged healthy lifestyle, good nutrition and exercise. [...] labs. Assessment & Plan (01/11/2022 9:14 AM ARMORED CAR GUARD): Kidney function with continued stability. Continue to avoid renal toxic drugs. Assessment & Plan (07/19/2021 9:03 AM CDT): Avoid nephrotoxic drugs including NSAIDs. Monitor labs. Assessment & Plan (01/10/2021 9:59 AM ARMORED CAR GUARD): Avoid nephrotoxic drugs including NSAIDs. Monitor labs. Assessment & Plan (07/10/2020 8:59 PM CDT): Avoid nephrotoxic drugs including NSAIDs. Monitor labs. Assessment & Plan (01/04/2020 8:28 PM ARMORED CAR GUARD): Avoid nephrotoxic drugs including NSAIDs. Monitor labs. Multiple thyroid nodules 12/21/2019 Assessment & Plan (08/06/2022 9:00 PM CDT): Continue per Dr. Breen she manages the thyroid nodules and thyroid levels Assessment & Plan (01/11/2022 9:13 AM ARMORED CAR GUARD): Continue per Dr. breen Assessment & Plan (12/21/2019 4:36 PM ARMORED CAR GUARD): Continue per Dr. Fong. 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 sin Assessment & Plan (01/11/2022 9:13 AM ARMORED CAR GUARD): Continue per Dr. breen Assessment & Plan (07/19/2021 9:02 AM CDT): Continue per Dr. Fong Assessment & Plan (01/10/2021 10:01 AM ARMORED CAR GUARD): Managed by Endocrine On Synthroid brand Assessment & Plan (07/10/2020 9:00 PM CDT): Continue levothyroxine Assessment & Plan (01/04/2020 8:29 PM ARMORED CAR GUARD): Continue synthroid. Labs stable. Assessment & Plan (12/21/2019 4:35 PM ARMORED CAR GUARD): Continue per Dr. Fong, endocrine. Elevated blood pressure read ing without diagnosis of hypertension 12/21/2019 Assessment & Plan (01/10/2021 10:02 AM ARMORED CAR GUARD): Continue to monitor readings. Still borderline Assessment & Plan (01/04/2020 8:31 PM ARMORED CAR GUARD): Stable. Continue to monitor closely Assessment & Plan (12/21/2019 4:37 PM ARMORED CAR GUARD): This is a significant, separately identifiable problem [...] PPI Assessment & Plan (01/11/2022 9:13 AM ARMORED CAR GUARD): Continue PPI. Assessment & Plan (07/19/2021 9:03 AM CDT): Stable with prn PPI Assessment & Plan (01/10/2021 9:59 AM ARMORED CAR GUARD): Continue PPI Assessment & Plan (07/10/2020 8:59 PM CDT): Continue PPI If tightening continues, will return to Dr. Reynoso for possible EGD Assessment & Plan (01/04/2020 8:28 PM ARMORED CAR GUARD): Continue the PPI Assessment & Plan (12/21/2019 4:34 PM ARMORED CAR GUARD): Continue PPI History of bilateral breast implants 12/21/2019 Assessment & Plan (01/10/2021 10:04 AM ARMORED CAR GUARD): Patient states Dr. Caldwell and Dr. Scruggs are working on her possible implants leaking vs ripple etc. She will keep us up to date. Assessment & Plan (07/10/2020 9:00 PM CDT): Continue per Dr. Scruggs Assessment & Plan (01/04/2020 8:30 PM ARMORED CAR GUARD): Continue per Dr. Healy Age-related osteoporosis wit hout current pathological fracture 12/21/2019 Assessment & Plan (08/06/2022 9:01 PM CDT): Continue Fosamax calcium vitamin-D and exercise. Dex is monitored by Assessment & Plan (01/11/2022 9:13 AM ARMORED CAR GUARD): Continue per Dr. breen. She is tolerating the Fosamax. Encouraged calcium vitamin-D and exercise. Assessment & Plan (07/19/2021 9:04 AM CDT): Continue calcium and vitamin D. Request DXA -- she states she plans to review with Dr. Fong at her next visit. Assessment & Plan (01/10/2021 10:01 AM ARMORED CAR GUARD): Dr. Caldwell/SUPPLY AIDE manages fosamax and DXA. Assessment & Plan (07/10/2020 8:59 PM CDT): Continue fosamax Encourage calcium, vitamin D and weight bearing exercise to maintain the good bone strength. Assessment & Plan (01/04/2020 8:28 PM ARMORED CAR GUARD): Continue with Fosamax. Dr. Caldwell manages Assessment & Plan (12/21/2019 4:35 PM ARMORED CAR GUARD): Continue Fosomax and calcium, vitD and exercise. Stress 12/21/2019 Assessment & Plan (07/10/2020 9:01 PM CDT): Continue to montior. States ok currently without medication Assessment & Plan (01/04/2020 8:30 PM ARMORED CAR GUARD): Pt feels like all is stable. Wants to continue to monitor without meds. 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 Fong. Continue levothyroxine Hyperglycemia 11/25/2019 Assessment & Plan (08/06/2022 9:00 PM CDT): Pre-diabetes/hyperglycemia is a precursor to Dm. Stressed importance of working on diet (decrease your simple sugars and one carbohydrate with each meal) and increase you exercise to achieve weight loss and this will help prevent you from progressing to diabetes. Assessment & Plan (01/11/2022 9:13 AM ARMORED CAR GUARD): Monitor labs. Continue activity and weight loss. [...] 30#s Assessment & Plan (01/10/2021 10:01 AM ARMORED CAR GUARD): Pre-diabetes is a precursor to Dm. Stressed [...] diabetes. Assessment & Plan (01/04/2020 8:29 PM ARMORED CAR GUARD): A1c is normal Assessment & Plan (12/21/2019 4:35 PM ARMORED CAR GUARD): This is a significant, separately identifiable problem [...] needed. Assessment & Plan (01/11/2022 9:13 AM ARMORED CAR GUARD): Encouraged patient to follow fat/low chol diet [...] needed. Assessment & Plan (01/04/2020 8:28 PM ARMORED CAR GUARD): Encouraged patient to continue low fat/low chol diet. Continue exercise. Increase good fats in the diet. Monitor labs as needed. Assessment & Plan (12/21/2019 4:36 PM ARMORED CAR GUARD): Encouraged patient to continue low fat/low chol [...] 01/10/20212020 Assessment & Plan (01/10/2021 8:15 AM ARMORED CAR GUARD): Obesity is unchanged. Discussed the patient's BMI. The BMI is above average. BMI management plan is completed. BMI Follow-up includes: nutrition counseling, exercise counseling and education provided. BMI 33.0-33.9,adult 01/10/2021 07/19/20 21 Assessment & Plan (01/10/2021 8:16 AM ARMORED CAR GUARD): Obesity is unchanged. Discussed the patient's BMI. [...] provided. Assessment & Plan (01/01/2020 8:48 AM ARMORED CAR GUARD): Obesity is unchanged. Discussed the patient's BMI. The BMI is above average. BMI management plan is completed. BMI Follow-up includes: nutrition counseling, exercise counseling and education provided. Medicare annual wellness visit, initial 12/21/2019 01/01/2020 Assessment & Plan (12/21/2019 4:37 PM ARMORED CAR GUARD): Encouraged healthy lifestyle, good nutrition and exercise. Encouraged Calcium and Vitamin D and weight bearing exercise for bone health. Reviewed immunizations Reviewed age appropirate screenings. Documentation is on the chart Need for 23-polyvalent pneum ococcal polysaccharide vaccine 12/21/2019 01/01/2020 Assessment & Plan (12/21/2019 4:37 PM ARMORED CAR GUARD): Updated in office today Positive depression screening 12/21/2019 01/01/2020 Assessment & Plan (12/21/2019 4:39 PM ARMORED CAR GUARD): See stress. May be situational. Monitor closely BMI 34.0-34.9,adult 11/25/2019 01/01/20 Assessment & Plan (12/21/2019 4:36 PM ARMORED CAR GUARD): Obesity is unchanged. Discussed the patient's BMI. [...] provided. Assessment & Plan (01/01/2020 8:48 AM ARMORED CAR GUARD): Obesity is unchanged. Discussed the patient's BMI. The BMI is above average. BMI management plan is completed. BMI Follow-up includes: nutrition counseling, exercise counseling and education provided. Assessment & Plan (12/21/2019 4:34 PM ARMORED CAR GUARD): Obesity is unchanged. Discussed the patient's BMI. The BMI is above average. BMI management plan is completed. BMI Follow-up includes: nutrition counseling, exercise counseling and education provided. Other fatigue 11/25/2019 01/01/2020 Assessment & Plan (12/21/2019 4:37 PM ARMORED CAR GUARD): Probably multifactorial. Check labs and followup to [...] on file Legal Sex Female 6:32 PM ARMORED CAR GUARD Gender Identity Not on file Sexual Orientation [...] history exists Colon Cancer Screening-Colonoscopy 02/01/2024 01/31/2019 DTaP/Tdap/Td Vaccine (2 - Td or Tdap) 11/12/2024 11/12/2014 Covid-19 Vaccine (3 - 2024-2 6 season) 2025 02/02/2021, 01/05/2021 Influenza Vaccine (#1) 2025 0, 07/23/2019, 07/29/2018, [...] Laterality Modality Breast Bilateral Mammography Chelsey Haque VENDING MACHINE [employer]SEMBLER IMG MAMMO PROC EDURES Final Result * DEXA SCAN (04/20/2021) Historical Provider HEALTH MAINTENANCE Final Result * COLONOSCOPY (01/31/2019) Colonoscopy Abnormal Comment:Reynoso-Family HX Historical Provider HEALTH MAINTENANCE Final Result from Last 3 Months or Most Recently Relevant to Health Maintenance Insurance [facility] MEDICARE ADVANTAGE Care Teams Manager Wellness Relationship Specialty Start Date End Date Kierra Olivia PA [address] [facility] [address] [place] [address] PCP - General Internal Medicine 09/29/19
--- OUTSIDE RECORDS SUMMARY | 2025-08-26 10:08 | XMS_ITS | Data Portability ---
Author Organization [facility] [place], Main Office Address [address] [place] [address] Assessment No assessment recorded. Plan of Treatment Reminders Order Date Submit Date Provider Last Modified By Organization Details Last Modified Time Details Appointments None recorded. Lab CMP, serum or plasma 2022 023 [facility], [address] [facility], [place], [address], 3 07:19:04 lipid panel, serum 2022 023 [facility], [address] [facility], [place], [address], 3 07:19:02 TSH + free T4, serum 2022 023 [facility], [address] [facility], [place], [address], 3 07:19:07 T3, free, serum or plasma 2022 023 [facility], [address] [facility], [place], [address], 3 07:19:06 vitamin B12 + folate, serum or blood 2022 023 [facility], [address] [facility], [place], [address], 3 07:19:05 Referral endocrinolo gy referral [address] - Endocrinology , [address], [place], [address], 4 12:39:31 Procedures upper endoscopy procedure (EGD) (PROC) 2022 023 JOSEM Reynoso MD, [address], [address], [place], [address], 4 10:09:21 Surgeries None recorded. Imaging US, kidney 2022 023 JOSE M [facility], [address], [place], [address], 3 10:56:15 Medication Orders liothyronin e 5 mcg tablet 2022 023 [email or web address] [address], [address] [facility], [place], [address], 3 21:38:44 Patient TargetsNo targets recorded. Patient InstructionsNo instructions recorded. Reason for Referral Endocrinology Referral for H ypothyroidism Referring Physician: Alejandra Torrez, Family Medicine, Encounter Date: 10/22/2023 Results Created Date Observation Date Name Description Value Unit Range Abnormal Flag Note LastModifiedBy Organization Detail LastModifiedTime 07/26/2007/27/2021 TSH+F REE T4 TSH 4.07 mIU/L 0.40-4 .50 normal Not Available [facility] [address] [place], [address], 07/27/2021 17:29:04 07/26/2007/27/2021 TSH+F REE T4 T4, free 1.2 NG/dL 0.8-1. 8 normal Not Available [facility] [address] [place], [address], 07/27/2021 17:29:04 07/26/2007/27/2021 VITAM IN D,25- OH,TO KURT,I A vitamin D,25-oh,tota l,ia 56 NG/mL 30-100 normal Vitam in D Statu s 25-OH Vitam in D: Defic iency : <20 ng/mL Insuf ficie ncy: 20 - 29 ng/mL Optim al: > or = 30 ng/mL For 25-OH Vitam in D testi ng on patie nts on D2-jaramillo pplem entat ion and patie nts for whom quant itati on of D2 and D3 fract ions is requi red, the Quest Assur eD(TM ) 25-OH VIT D, (D2,D 3), LC/MS /MS is recom tasneem d: order code 18911 (joey ents >2yrs ). See Note 1 Note 1 For addit ional infor katie lombardi refer to http: //[facility] vivian Hahn gnost ics.c om/fa q/FAQ 199 (This link is being provi ded for infor satish العراقي/ educcora rousseau purpo ses only. ) Not Available [address], [address], 07/27/2021 17:29:04 07/26/20 21 07/27/2021 T3, FREE T3, free 2.8 pg/mL 2.3-4. 2 normal Not Available [address], [address], 07/27/2021 17:29:03 07/26/20 21 07/27/2021 COMPR EHENS EULA METAB OLIC PANEL glucose 91 mg/dL 65-99 normal Fasti ng refer ence inter milo Not Available [address], [address], 07/27/2021 17:29:03 07/26/20 21 07/27/2021 COMPR EHENS EULA METAB OLIC PANEL urea nitrogen (BUN) 14 mg/dL 7-25 normal Not Available [address], [address], 07/27/2021 17:29:03 07/26/20 21 07/27/2021 COMPR EHENS EULA METAB OLIC PANEL creatinine 0.86 mg/dL 0.50-0 .99 normal For patie nts >49 years of age, the refer ence limit for Creat inine is appro ximat ed 13% highe r for peopl e ident ified as Afric an-Am kallie n. Not Available [address] [place], [address], 07/27/2021 17:29:03 07/26/20 21 07/27/2021 COMPR EHENS EULA METAB OLIC PANEL eGFR non-afr. st lucian 69 mL/mi n/1.7 3m2 > or = 60 normal Not Available [address], [address], 07/27/2021 17:29:03 07/26/20 21 07/27/2021 COMPR EHENS EULA METAB OLIC PANEL eGFR 80 mL/mi n/1.7 3m2 > or = 60 normal Not Available [address], [address], 07/27/2021 17:29:03 07/26/20 21 07/27/2021 COMPR EHENS EULA METAB OLIC PANEL BUN/creatini ne ratio not applic able (calc ) 6-22 Not Available [address], [address], 07/27/2021 17:29:03 07/26/20 21 07/27/2021 COMPR EHENS EULA METAB OLIC PANEL sodium 144 mmol/ L 135-14 6 normal Not Available [address], [address], 07/27/2021 17:29:03 07/26/20 21 07/27/2021 COMPR EHENS EULA METAB OLIC PANEL potassium 4.6 mmol/ L 3.5-5. 3 normal Not Available [address], [address], 07/27/2021 17:29:03 07/26/20 21 07/27/2021 COMPR EHENS EULA METAB OLIC PANEL chloride 109 mmol/ L 98-110 normal Not Available [address], [address], 07/27/2021 17:29:03 07/26/20 21 07/27/2021 COMPR EHENS EULA METAB OLIC PANEL carbon dioxide 28 mmol/ L 20-32 normal Not Available [address], [address], 07/27/2021 17:29:03 07/26/20 21 07/27/2021 COMPR EHENS EULA METAB OLIC PANEL calcium 9.6 mg/dL 8.6-10 .4 normal Not Available [address], [address], 07/27/2021 17:29:03 07/26/20 21 07/27/2021 COMPR EHENS EULA METAB OLIC PANEL protein, total 6.7 g/dL 6.1-8. 1 normal Not Available [address], [address], 07/27/2021 17:29:03 07/26/20 21 07/27/2021 COMPR EHENS EULA METAB OLIC PANEL albumin 4.3 g/dL 3.6-5. 1 normal Not Available [address], [address], 07/27/2021 17:29:03 07/26/20 21 07/27/2021 COMPR EHENS EULA METAB OLIC PANEL globulin 2.4 g/dL_ (calc ) 1.9-3. 7 normal Not Available [address], [address], 07/27/2021 17:29:03 07/26/20 21 07/27/2021 COMPR EHENS EULA METAB OLIC PANEL albumin/glob ulin ratio 1.8 (calc ) 1.0-2. 5 normal Not Available [address], [address], 07/27/2021 17:29:03 07/26/20 21 07/27/2021 COMPR EHENS EULA METAB OLIC PANEL bilirubin, total 0.9 mg/dL 0.2-1. 2 normal Not Available [address], [address], 07/27/2021 17:29:03 07/26/20 21 07/27/2021 COMPR EHENS EULA METAB OLIC PANEL alkaline phosphatase 58 U/L 37-153 normal Not Available [address], [address], 07/27/2021 17:29:03 07/26/20 21 07/27/2021 COMPR EHENS EULA METAB OLIC PANEL AST 12 U/L 10-35 normal Not Available [address], [address], 07/27/2021 17:29:03 07/26/20 21 07/27/2021 COMPR EHENS EULA METAB OLIC PANEL ALT 9 U/L 6-29 normal Not Available [address], [address], 07/27/2021 17:29:03 07/26/20 21 07/27/2021 PHOSP HATE ( PHOSP HORUS ) phosphate ( phosphorus) 4.0 mg/dL 2.1-4. 3 normal Not Available [address], [address], 07/27/2021 17:29:02 07/26/2007/27/2021 MAGNE SIUM magnesium 2.2 mg/dL 1.5-2. 5 normal Not Available [address], [address], 07/27/2021 17:29:01 07/26/20 21 07/27/2021 PTH, INTAC T AND CALCI UM parathyroid hormone, intact 13 pg/mL 14-64 low Inter preti ve Guide Intac t PTH Calci um ----- ----- ----- --- ----- ----- ----- -- Marichuy l Parat hyroi d Marichuy l Marichuy l Hypop hermila yroid ism Low or Low Marichuy l Low Hyper parat hyroi dism Prima ry Marichuy l or High High Secon enedina High Marichuy l or Low Terti brendan High High Non-P hermila yroid Hyper calce genevieve Low or Low Marichuy l High Not Available [address], [address], 07/27/2021 17:29:00 07/26/2007/27/2021 PTH, INTAC T AND CALCI UM calcium 9.6 mg/dL 8.6-10 .4 normal Not Available [address] [place], [address], 07/27/2021 17:29:00 01/02/20 22 01/03/2022 TSH+F REE T4 TSH 3.35 mIU/L 0.40-4 .50 normal Not Available [address] [place], [address], 01/03/2022 03:57:57 01/02/20 22 01/03/2022 TSH+F REE T4 T4, free 1.2 NG/dL 0.8-1. 8 normal Not Available [facility] [address], [address], 01/03/2022 03:57:57 01/02/20 22 01/03/2022 TSH+F REE T4 copy(ies) sent to: [facility] [address] [place] [address] Not Available [address] [place], [address], 01/03/2022 03:57:57 01/02/20 22 01/03/2022 VITAM IN D,25- OH,TO Melanie HICKS A vitamin D,25-oh,tota sohamia 52 NG/mL 30-100 normal Vitam in D Statu s 25-OH Vitam in D: Defic iency : <20 ng/mL Insuf ficie ncy: 20 - 29 ng/mL Optim al: > or = 30 ng/mL For 25-OH Vitam in D testi ng on patie nts on D2-jaramillo pplem entat ion and patie nts for whom quant itati on of D2 and D3 fract ions is requi red, the [facility] Assur eD(TM ) 25-OH VIT D, (D2,D 3), LC/MS /MS is recom tasneem d: order code 14268 (joey ents >2yrs ). See Note 1 Note 1 For addit ional infor katie lombardi refer to http: //[facility] vivian Grantia gnost ics.c om/fa q/FAQ 199 (This link is being provi ded for infor satish العراقي/ carol rousseau purpo ses only. ) Not Available [facility] [place] [address] [place], [address], 01/03/2022 03:57:56 01/02/20 22 01/03/2022 VITAM IN D,25- OH,TO Melanie HICKS A copy(ies) sent to: [facility] [address] [place] [address] Not Available [facility] [place] [address] [place], [address], 01/03/2022 03:57:56 01/02/20 22 01/03/2022 T3, FREE T3, free 2.8 pg/mL 2.3-4. 2 normal Not Available [facility] [place] [address] [place], [address], 01/03/2022 03:57:56 01/02/20 22 01/03/2022 T3, FREE copy(ies) sent to: [facility] [address] [place] [address] Not Available [address] [place], [address], 01/03/2022 03:57:56 01/02/20 22 01/03/2022 VITAM IN B12/F OLATE , SERUM PANEL vitamin B12 250 pg/mL 200-11 00 normal Pleas e Note: Altho ugh the refer ence range for vitam in B12 is 200-1 100 pg/mL , it has been repor tory that betwe en 5 and 10% of patie nts with value s betwe en 200 and 400 pg/mL may exper ience neuro psych iatri c and hemat ologi c abnor malit ies due to occul t B12 defic iency ; less than 1% of patie nts with value s above 400 pg/mL will have sympt oms. Not Available [facility] [address], [address], 01/03/2022 03:57:56 01/02/20 22 01/03/2022 VITAM IN B12/F OLATE , SERUM PANEL folate, serum 8.5 NG/mL normal Refer ence Range Low: <3.4 Borde rline : 3.4-5 .4 Marichuy l: >5.4 Not Available [facility] [address] [place], [address], 01/03/2022 03:57:56 01/02/20 22 01/03/2022 VITAM IN B12/F OLATE , SERUM PANEL copy(ies) sent to: [facility] [address] [place] [address] Not Available [facility] [address] [place], [address], 01/03/2022 03:57:56 01/02/20 22 01/03/2022 COMPR EHENS EULA METAB OLIC PANEL glucose 89 mg/dL 65-99 normal Fasti ng refer ence inter milo Not Available [place] [address] [address] [place], [address], 01/03/2022 03:57:55 01/02/20 22 01/03/2022 COMPR EHENS EULA METAB OLIC PANEL urea nitrogen (BUN) 12 mg/dL 7-25 normal Not Available [address] [place], [address], 01/03/2022 03:57:55 01/02/20 22 01/03/2022 COMPR EHENS EULA METAB OLIC PANEL creatinine 1.11 mg/dL 0.50-0 .99 high For patie nts >49 years of age, the refer ence limit for Creat inine is appro ximat ed 13% highe r for peopl e ident ified as Afric an-Am kallie n. Not Available [address] [address] [place], [address], 01/03/2022 03:57:55 01/02/20 22 01/03/2022 COMPR EHENS EULA METAB OLIC PANEL eGFR non-afr. st lucian 51 mL/mi n/1.7 3m2 > or = 60 low Not Available [place] [address] [address] [place], [address], 01/03/2022 03:57:55 01/02/20 22 01/03/2022 COMPR EHENS EULA METAB OLIC PANEL eGFR 59 mL/mi n/1.7 3m2 > or = 60 low Not Available [place] [address] [address] [place], [address], 01/03/2022 03:57:55 01/02/20 22 01/03/2022 COMPR EHENS EULA METAB OLIC PANEL BUN/creatini ne ratio 11 (calc ) 6-22 normal Not Available [address], [address], 01/03/2022 03:57:55 01/02/20 22 01/03/2022 COMPR EHENS EULA METAB OLIC PANEL sodium 143 mmol/ L 135-14 6 normal Not Available [address], [address], 01/03/2022 03:57:55 01/02/20 22 01/03/2022 COMPR EHENS EULA METAB OLIC PANEL potassium 4.5 mmol/ L 3.5-5. 3 normal Not Available [address], [address], 01/03/2022 03:57:55 01/02/20 22 01/03/2022 COMPR EHENS EULA METAB OLIC PANEL chloride 107 mmol/ L 98-110 normal Not Available [address], [address], 01/03/2022 03:57:55 01/02/20 22 01/03/2022 COMPR EHENS EULA METAB OLIC PANEL carbon dioxide 29 mmol/ L 20-32 normal Not Available [address], [address], 01/03/2022 03:57:55 01/02/20 22 01/03/2022 COMPR EHENS EULA METAB OLIC PANEL calcium 9.8 mg/dL 8.6-10 .4 normal Not Available [address], [address], 01/03/2022 03:57:55 01/02/20 22 01/03/2022 COMPR EHENS EULA METAB OLIC PANEL protein, total 6.6 g/dL 6.1-8. 1 normal Not Available [address] [place], [address], 01/03/2022 03:57:55 01/02/20 22 01/03/2022 COMPR EHENS EULA METAB OLIC PANEL albumin 4.5 g/dL 3.6-5. 1 normal Not Available [address], [address], 01/03/2022 03:57:55 01/02/20 22 01/03/2022 COMPR EHENS EULA METAB OLIC PANEL globulin 2.1 g/dL_ (calc ) 1.9-3. 7 normal Not Available [address], [address], 01/03/2022 03:57:55 01/02/20 22 01/03/2022 COMPR EHENS EULA METAB OLIC PANEL albumin/glob ulin ratio 2.1 (calc ) 1.0-2. 5 normal Not Available [address], [address], 01/03/2022 03:57:55 01/02/20 22 01/03/2022 COMPR EHENS EULA METAB OLIC PANEL bilirubin, total 0.9 mg/dL 0.2-1. 2 normal Not Available [address], [address], 01/03/2022 03:57:55 01/02/20 22 01/03/2022 COMPR EHENS EULA METAB OLIC PANEL alkaline phosphatase 66 U/L 37-153 normal Not Available [address], [address], 01/03/2022 03:57:55 01/02/20 22 01/03/2022 COMPR EHENS EULA METAB OLIC PANEL AST 13 U/L 10-35 normal Not Available [address], [address], 01/03/2022 03:57:55 01/02/20 22 01/03/2022 COMPR EHENS EULA METAB OLIC PANEL ALT 9 U/L 6-29 normal Not Available [address] [place], [address], 01/03/2022 03:57:55 01/02/20 22 01/03/2022 COMPR EHENS EULA METAB OLIC PANEL copy(ies) sent to: [facility] [address] [place] [address] Not Available [facility] [place] [address] [place], [address], 01/03/2022 03:57:55 01/02/20 22 01/03/2022 LIPID PANEL , STAND JUAN MIGUEL LDL-choleste rol 119 mg/dL _(clinton c) high Refer ence range : <100 Martínez able range <100 mg/dL for prima ry preve ntion ; <70 mg/dL for patie nts with CHD or diabe tic patie nts with > or = 2 CHD risk facto rs. LDL-C is now calcu lated using the Uma n-Hop kins calcu piter n, which is a valid ated novel metho d provi ding den r accur acy than the Fried carson equat ion in the estim ation of LDL-C . Uma conrad SS et al. JAZMINE. 2013; 310(1 9): 2061- 2068 (http ://ed ucati on.Qu Jese Tyrogenex. com/f aq/FA Q164) Not Available [facility] [place] [address] [address] [place], [address], 01/03/2022 03:57:54 01/02/20 22 01/03/2022 LIPID PANEL , STAND JUAN MIGUEL cholesterol, total 201 mg/dL <200 high Not Available [facility] [address] [address] [place], [address], 01/03/2022 03:57:54 01/02/20 22 01/03/2022 LIPID PANEL , STAND JUAN MIGUEL HDL cholesterol 57 mg/dL > or = 50 normal Not Available [facility] [place] [address] [place], [address], 01/03/2022 03:57:54 01/02/20 22 01/03/2022 LIPID PANEL , STAND JUAN MIGUEL triglyceride s 130 mg/dL <150 normal Not Available [address], [address], 01/03/2022 03:57:54 01/02/20 22 01/03/2022 LIPID PANEL , STAND JUAN MIGUEL chol/HDLC ratio 3.5 (calc ) <5.0 normal Not Available [address], [address], 01/03/2022 03:57:54 01/02/20 22 01/03/2022 LIPID PANEL , STAND JUAN MIGUEL non HDL cholesterol 144 mg/dL _(clinton c) <130 high For patie nts with diabe xavier plus 1 major ASCVD risk facto r, treat ing to a non-H DL-C goal of <100 mg/dL (LDL- C of <70 mg/dL ) is consi dered a thera peuti c optio n. Not Available [facility] [address], [address], 01/03/2022 03:57:54 01/02/20 22 01/03/2022 LIPID PANEL , STAND JUAN MIGUEL copy(ies) sent to: [facility] [address] [place] [address] Not Available [address], [address], 01/03/2022 03:57:54 07/10/20 22 07/12/2022 TSH+F REE T4 TSH 4.50 mIU/L 0.40-4 .50 normal Not Available [facility] [address], [address], 07/12/2022 16:13:23 07/10/20 22 07/12/2022 TSH+F REE T4 T4, free 1.2 NG/dL 0.8-1. 8 normal Not Available [facility] [place] [address] [place], [address], 07/12/2022 16:13:23 07/10/20 22 07/12/2022 VITAM IN D,25- OH,TO KURT,I A vitamin D,25-oh,tota l,ia 59 NG/mL 30-100 normal Vitam in D Statu s 25-OH Vitam in D: Defic iency : <20 ng/mL Insuf ficie ncy: 20 - 29 ng/mL Optim al: > or = 30 ng/mL For 25-OH Vitam in D testi ng on patie nts on D2-jaramillo pplem entat ion and patie nts for whom quant itati on of D2 and D3 fract ions is requi red, the [facility] Assur eD(TM ) 25-OH VIT D, (D2,D 3), LC/MS /MS is recom tasneem d: order code 40126 (joey ents >2yrs ). See Note 1 Note 1 For addit ional infor katie lombardi e refer to http: //[facility] gnost ics.c om/fa q/FAQ 199 (This link is being provi ded for infor satish العراقي/ carol rousseau purpo ses only. ) Not Available [facility] [place] [address] [place], [address], 07/12/2022 16:13:23 07/10/20 22 07/12/2022 T3, FREE T3, free 2.6 pg/mL 2.3-4. 2 normal Not Available [facility] [place] [address] [place], [address], 07/12/2022 16:13:22 07/10/20 22 07/12/2022 VITAM IN B12/F OLATE , SERUM PANEL vitamin B12 431 pg/mL 200-11 00 normal Not Available [facility] [place] [address] [place], [address], 07/12/2022 16:13:21 07/10/20 22 07/12/2022 VITAM IN B12/F OLATE , SERUM PANEL folate, serum 8.0 NG/mL normal Refer ence Range Low: <3.4 Borde rline : 3.4-5 .4 Marichuy l: >5.4 Not Available [address], [address], 07/12/2022 16:13:21 07/10/20 22 07/12/2022 THYRO ID PEROX IDASE ANTIB ODIES thyroid peroxidase antibodies 201 IU/mL <9 high Not Available [address], [address], 07/12/2022 16:13:21 07/10/20 22 07/12/2022 COMPR EHENS EULA METAB OLIC PANEL glucose 89 mg/dL 65-99 normal Fasti ng refer ence inter milo Not Available [address], [address], 07/12/2022 16:13:20 07/10/20 22 07/12/2022 COMPR EHENS EULA METAB OLIC PANEL urea nitrogen (BUN) 10 mg/dL 7-25 normal Not Available [address], [address], 07/12/2022 16:13:20 07/10/20 22 07/12/2022 COMPR EHENS EULA METAB OLIC PANEL creatinine 0.97 mg/dL 0.50-1 .05 normal Not Available [address], [address], 07/12/2022 16:13:20 07/10/20 22 07/12/2022 COMPR EHENS EULA METAB OLIC PANEL potassium 4.6 mmol/ L 3.5-5. 3 normal Not Available [address], [address], 07/12/2022 16:13:20 07/10/20 22 07/12/2022 COMPR EHENS EULA METAB OLIC PANEL eGFR 63 mL/mi n/1.7 3m2 > or = 60 normal The eGFR is based on the CKD-E PI 2020 equat ion. To calcu late the new eGFR from a previ ous Creat inine or Cysta tin C resul t, go to https ://roverto vazquez.jose harris/pr ofess ional s/ kdoqi /gfr% 5Fcal culat or Not Available [address], [address], 07/12/2022 16:13:20 07/10/20 22 07/12/2022 COMPR EHENS EULA METAB OLIC PANEL BUN/creatini ne ratio not applic able (calc ) 6-22 Not Available [address], [address], 07/12/2022 16:13:20 07/10/20 22 07/12/2022 COMPR EHENS EULA METAB OLIC PANEL sodium 143 mmol/ L 135-14 6 normal Not Available [address], [address], 07/12/2022 16:13:20 07/10/20 22 07/12/2022 COMPR EHENS EULA METAB OLIC PANEL chloride 107 mmol/ L 98-110 normal Not Available [address], [address], 07/12/2022 16:13:20 07/10/20 22 07/12/2022 COMPR EHENS EULA METAB OLIC PANEL carbon dioxide 27 mmol/ L 20-32 normal Not Available [facility] [address], [address], 07/12/2022 16:13:20 07/10/20 22 07/12/2022 COMPR EHENS EULA METAB OLIC PANEL calcium 9.6 mg/dL 8.6-10 .4 normal Not Available [facility] [address], [address], 07/12/2022 16:13:20 07/10/20 22 07/12/2022 COMPR EHENS EULA METAB OLIC PANEL protein, total 6.5 g/dL 6.1-8. 1 normal Not Available [address], [address], 07/12/2022 16:13:20 07/10/20 22 07/12/2022 COMPR EHENS EULA METAB OLIC PANEL albumin 4.2 g/dL 3.6-5. 1 normal Not Available [address], [address], 07/12/2022 16:13:20 07/10/20 22 07/12/2022 COMPR EHENS EULA METAB OLIC PANEL globulin 2.3 g/dL_ (calc ) 1.9-3. 7 normal Not Available [address], [address], 07/12/2022 16:13:20 07/10/20 22 07/12/2022 COMPR EHENS EULA METAB OLIC PANEL albumin/glob ulin ratio 1.8 (calc ) 1.0-2. 5 normal Not Available [address], [address], 07/12/2022 16:13:20 07/10/20 22 07/12/2022 COMPR EHENS EULA METAB OLIC PANEL bilirubin, total 1.0 mg/dL 0.2-1. 2 normal Not Available [address], [address], 07/12/2022 16:13:20 07/10/20 22 07/12/2022 COMPR EHENS EULA METAB OLIC PANEL alkaline phosphatase 60 U/L 37-153 normal Not Available [address], [address], 07/12/2022 16:13:20 07/10/20 22 07/12/2022 COMPR EHENS EULA METAB OLIC PANEL AST 14 U/L 10-35 normal Not Available [address], [address], 07/12/2022 16:13:20 07/10/20 22 07/12/2022 COMPR EHENS EULA METAB OLIC PANEL ALT 10 U/L 6-29 normal Not Available [address], [address], 07/12/2022 16:13:20 07/10/20 22 07/12/2022 PTH, INTAC T AND CALCI UM parathyroid hormone, intact 29 pg/mL 16-77 normal Inter preti ve Guide Intac t PTH Calci um ----- ----- ----- --- ----- ----- ----- -- Marichuy l Parat hyroi d Marichuy l Marichuy l Hypop hermila yroid ism Low or Low Marichuy l Low Hyper parat hyroi dism Prima ry Marichuy l or High High Secon enedina High Marichuy l or Low Terti brendan High High Non-P hermila yroid Hyper calce genevieve Low or Low Marichuy l High Not Available [address], [address], 07/12/2022 16:13:19 07/10/20 22 07/12/2022 PTH, INTAC T AND CALCI UM calcium 9.6 mg/dL 8.6-10 .4 normal Not Available [address], [address], 07/12/2022 16:13:19 12/27/19 23 12/28/2022 TSH+F REE T4 TSH 5.10 mIU/L 0.40-4 .50 high Not Available [address], [address], 12/28/2022 03:27:20 12/27/19 23 12/28/2022 TSH+F REE T4 T4, free 1.2 NG/dL 0.8-1. 8 normal Not Available [facility] [address] [address] [place], [address], 12/28/2022 03:27:20 12/27/19 23 12/28/2022 VITAM IN D,25- OH,TO KURT,I A vitamin D,25-oh,tota l,ia 46 NG/mL 30-100 normal Vitam in D Statu s 25-OH Vitam in D: Defic iency : <20 ng/mL Insuf ficie ncy: 20 - 29 ng/mL Optim al: > or = 30 ng/mL For 25-OH Vitam in D testi ng on patie nts on D2-jaramillo pplem entat ion and patie nts for whom quant itati on of D2 and D3 fract ions is requi red, the [facility](TM ) 25-OH VIT D, (D2,D 3), LC/MS /MS is recom tasneem d: order code 39665 (joey ents >2yrs ). See Note 1 Note 1 For addit ional infor katie lombardi e refer to http: //[email or web address] vivian [email or web address] [email or web address] om/fa q/FAQ 199 (This link is being provi ded for infor satish العراقي/ carol rousseau purpo ses only. ) Not Available [facility] [address] [address] [place], [address], 12/28/2022 03:27:19 12/27/19 23 12/28/2022 T3, FREE T3, free 2.6 pg/mL 2.3-4. 2 normal Not Available [facility] [address] [address] [place], [address], 12/28/2022 03:27:19 12/27/19 23 12/28/2022 VITAM IN B12/F OLATE , SERUM PANEL vitamin B12 1387 pg/mL 200-11 00 high Not Available [facility] [address] [address] [place], [address], 12/28/2022 03:27:18 12/27/19 23 12/28/2022 VITAM IN B12/F OLATE , SERUM PANEL folate, serum 7.5 NG/mL normal Refer ence Range Low: <3.4 Borde rline : 3.4-5 .4 Marichuy l: >5.4 Not Available [address], [address], 12/28/2022 03:27:18 12/27/19 23 12/28/2022 COMPR EHENS EULA METAB OLIC PANEL glucose 92 mg/dL 65-99 normal Fasti ng refer ence inter milo Not Available [address], [address], 12/28/2022 03:27:18 12/27/19 23 12/28/2022 COMPR EHENS EULA METAB OLIC PANEL urea nitrogen (BUN) 23 mg/dL 7-25 normal Not Available [address], [address], 12/28/2022 03:27:18 12/27/1912/28/2022 COMPR EHENS EULA METAB OLIC PANEL creatinine 1.13 mg/dL 0.60-1 .00 high Not Available [address], [address], 12/28/2022 03:27:18 12/27/1912/28/2022 COMPR EHENS EULA METAB OLIC PANEL eGFR 52 mL/mi n/1.7 3m2 > or = 60 low The eGFR is based on the CKD-E PI 2020 equat ion. To calcu late the new eGFR from a previ ous Creat inine or Cysta lenin C resul t, go to https ://roverto vazquez.jose harris/caleb ott/ kdoqi /gfr% 5Fcal culat or Not Available [address], [address], 12/28/2022 03:27:18 12/27/19 23 12/28/2022 COMPR EHENS EULA METAB OLIC PANEL BUN/creatini ne ratio 20 (calc ) 6-22 normal Not Available [address], [address], 12/28/2022 03:27:18 12/27/19 23 12/28/2022 COMPR EHENS EULA METAB OLIC PANEL sodium 141 mmol/ L 135-14 6 normal Not Available [address], [address], 12/28/2022 03:27:18 12/27/19 23 12/28/2022 COMPR EHENS EULA METAB OLIC PANEL potassium 4.5 mmol/ L 3.5-5. 3 normal Not Available [address], [address], 12/28/2022 03:27:18 12/27/19 23 12/28/2022 COMPR EHENS EULA METAB OLIC PANEL chloride 105 mmol/ L 98-110 normal Not Available [address], [address], 12/28/2022 03:27:18 12/27/19 23 12/28/2022 COMPR EHENS EULA METAB OLIC PANEL carbon dioxide 32 mmol/ L 20-32 normal Not Available [address], [address], 12/28/2022 03:27:18 12/27/19 23 12/28/2022 COMPR EHENS EULA METAB OLIC PANEL calcium 9.7 mg/dL 8.6-10 .4 normal Not Available [address], [address], 12/28/2022 03:27:18 12/27/19 23 12/28/2022 COMPR EHENS EULA METAB OLIC PANEL protein, total 6.9 g/dL 6.1-8. 1 normal Not Available [address], [address], 12/28/2022 03:27:18 12/27/19 23 12/28/2022 COMPR EHENS EULA METAB OLIC PANEL albumin 4.5 g/dL 3.6-5. 1 normal Not Available [address], [address], 12/28/2022 03:27:18 12/27/19 23 12/28/2022 COMPR EHENS EULA METAB OLIC PANEL globulin 2.4 g/dL_ (calc ) 1.9-3. 7 normal Not Available [address], [address], 12/28/2022 03:27:18 12/27/19 23 12/28/2022 COMPR EHENS EULA METAB OLIC PANEL albumin/glob ulin ratio 1.9 (calc ) 1.0-2. 5 normal Not Available [address], [address], 12/28/2022 03:27:18 12/27/19 23 12/28/2022 COMPR EHENS EULA METAB OLIC PANEL ALT 10 U/L 6-29 normal Not Available [address], [address], 12/28/2022 03:27:18 12/27/19 23 12/28/2022 COMPR EHENS EULA METAB OLIC PANEL bilirubin, total 1.0 mg/dL 0.2-1. 2 normal Not Available [address], [address], 12/28/2022 03:27:18 12/27/19 23 12/28/2022 COMPR EHENS EULA METAB OLIC PANEL alkaline phosphatase 68 U/L 37-153 normal Not Available [address] [address] [place], [address], 12/28/2022 03:27:18 12/27/19 23 12/28/2022 COMPR EHENS EULA METAB OLIC PANEL AST 13 U/L 10-35 normal Not Available [address], [address], 12/28/2022 03:27:18 12/27/19 23 12/28/2022 LIPID PANEL , STAND JUAN MIGUEL LDL-choleste rol 134 mg/dL _(clinton c) high Refer ence range : <100 Martínez able range <100 mg/dL for prima ry preve ntion ; <70 mg/dL for patie nts with CHD or diabe tic patie nts with > or = 2 CHD risk facto rs. LDL-C is now calcu lated using the Uma n-Hop kins calcu latio n, which is a valid ated novel metho d provi ding den r accur acy than the Fried carson equat ion in the estim ation of LDL-C . Uma conrad SS et al. JAZMINE. 2013; 310(1 9): 2061- 2068 (http ://ed ucati on.Qu estDi Tyrogenex. com/f aq/FA Q164) Not Available [address], [address], 12/28/2022 03:27:17 12/27/19 23 12/28/2022 LIPID PANEL , STAND JUAN MIGUEL cholesterol, total 212 mg/dL <200 high Not Available [address], [address], 12/28/2022 03:27:17 12/27/19 23 12/28/2022 LIPID PANEL , STAND JUAN MIGUEL HDL cholesterol 53 mg/dL > or = 50 normal Not Available [address], [address], 12/28/2022 03:27:17 12/27/19 23 12/28/2022 LIPID PANEL , STAND JUAN MIGUEL triglyceride s 132 mg/dL <150 normal Not Available [address], [address], 12/28/2022 03:27:17 12/27/19 23 12/28/2022 LIPID PANEL , STAND JUAN MIGUEL chol/HDLC ratio 4.0 (calc ) <5.0 normal Not Available [address], [address], 12/28/2022 03:27:17 12/27/19 23 12/28/2022 LIPID PANEL , STAND JUAN MIGUEL non HDL cholesterol 159 mg/dL _(clinton c) <130 high For patie nts with diabe xavier plus 1 major ASCVD risk facto r, treat ing to a non-H DL-C goal of <100 mg/dL (LDL- C of <70 mg/dL ) is nani shipleyo n. Not Available [address], [address], 12/28/2022 03:27:17 08/15/2008/16/2023 LIPID PANEL , STAND JUAN MIGUEL cholesterol, total 169 mg/dL <200 normal Not Available [address], [address], 08/16/2023 07:19:02 08/15/2008/16/2023 LIPID PANEL , STAND JUAN MIGUEL HDL cholesterol 56 mg/dL > or = 50 normal Not Available [address], [address], 08/16/2023 07:19:02 08/15/2008/16/2023 LIPID PANEL , STAND JUAN MIGUEL triglyceride s 97 mg/dL <150 normal Not Available [address], [address], 08/16/2023 07:19:02 08/15/2008/16/2023 LIPID PANEL , STAND JUAN MIGUEL LDL-choleste rol 94 mg/dL _(clinton c) normal Refer ence range : <100 Martínez able range <100 mg/dL for prima ry preve ntion ; <70 mg/dL for patie nts with CHD or diabe tic patie nts with > or = 2 CHD risk facto rs. LDL-C is now calcu lated using the Uma n-Hop kins robertau piter n, which is a valid ated novel metho d provi ding den r accur acy than the Fried carson equat ion in the estim ation of LDL-C . Uma conrad SS et al. JAZMINE. 2013; 310(1 9): 2061- 2068 (http ://ed ucati on.Qu estDi Tyrogenex. com/f aq/FA Q164) Not Available [address] [address] [address] [place], [address], 08/16/2023 07:19:02 08/15/2008/16/2023 LIPID PANEL , STAND JUAN MIGUEL chol/HDLC ratio 3.0 (calc ) <5.0 normal Not Available [address] [address] [place], [address], 08/16/2023 07:19:02 08/15/2008/16/2023 LIPID PANEL , STAND JUAN MIGUEL non HDL cholesterol 113 mg/dL _(clinton c) <130 normal For patie nts with diabe xavier plus 1 major ASCVD risk facto r, treat ing to a non-H DL-C goal of <100 mg/dL (LDL- C of <70 mg/dL ) is consi dyland a chelsey palencia optio n. Not Available [facility] [address] [address] [address] , [place], [address], 08/16/2023 07:19:02 08/15/2008/16/2023 LIPID PANEL , STAND JUAN MIGUEL copy(ies) sent to: [facility] [address] [facility] [address] [place] [address] Not Available [facility] [address] [address] [address], [place], [address], 08/16/2023 07:19:02 08/15/2008/16/2023 COMPR EHENS EULA METAB OLIC PANEL glucose 90 mg/dL 65-99 normal Fasti ng refer ence inter milo Not Available [address], [address], 08/16/2023 07:19:04 08/15/2008/16/2023 COMPR EHENS EULA METAB OLIC PANEL urea nitrogen (BUN) 21 mg/dL 7-25 normal Not Available [address], [address], 08/16/2023 07:19:04 08/15/2008/16/2023 COMPR EHENS EULA METAB OLIC PANEL creatinine 1.07 mg/dL 0.60-1 .00 high Not Available [address], [address], 08/16/2023 07:19:04 08/15/2008/16/2023 COMPR EHENS EULA METAB OLIC PANEL eGFR 56 mL/mi n/1.7 3m2 > or = 60 low Not Available [address], [address], 08/16/2023 07:19:04 08/15/2008/16/2023 COMPR EHENS EULA METAB OLIC PANEL BUN/creatini ne ratio 20 (calc ) 6-22 normal Not Available [address], [address], 08/16/2023 07:19:04 08/15/2008/16/2023 COMPR EHENS EULA METAB OLIC PANEL sodium 142 mmol/ L 135-14 6 normal Not Available [address], [address], 08/16/2023 07:19:04 08/15/2008/16/2023 COMPR EHENS EULA METAB OLIC PANEL potassium 4.9 mmol/ L 3.5-5. 3 normal Not Available [address], [address], 08/16/2023 07:19:04 08/15/2008/16/2023 COMPR EHENS EULA METAB OLIC PANEL chloride 108 mmol/ L 98-110 normal Not Available [address], [place], [address], 08/16/2023 07:19:04 08/15/2008/16/2023 COMPR EHENS EULA METAB OLIC PANEL carbon dioxide 28 mmol/ L 20-32 normal Not Available [address], [address], 08/16/2023 07:19:04 08/15/2008/16/2023 COMPR EHENS EULA METAB OLIC PANEL calcium 9.6 mg/dL 8.6-10 .4 normal Not Available [address], [address], 08/16/2023 07:19:04 08/15/2008/16/2023 COMPR EHENS EULA METAB OLIC PANEL protein, total 7.0 g/dL 6.1-8. 1 normal Not Available [address], [address], 08/16/2023 07:19:04 08/15/2008/16/2023 COMPR EHENS EULA METAB OLIC PANEL albumin 4.4 g/dL 3.6-5. 1 normal Not Available [address], [address], 08/16/2023 07:19:04 08/15/2008/16/2023 COMPR EHENS EULA METAB OLIC PANEL globulin 2.6 g/dL_ (calc ) 1.9-3. 7 normal Not Available [address], [address], 08/16/2023 07:19:04 08/15/2008/16/2023 COMPR EHENS EULA METAB OLIC PANEL albumin/glob ulin ratio 1.7 (calc ) 1.0-2. 5 normal Not Available [address], [address], 08/16/2023 07:19:04 08/15/2008/16/2023 COMPR EHENS EULA METAB OLIC PANEL bilirubin, total 1.0 mg/dL 0.2-1. 2 normal Not Available [address], [address], 08/16/2023 07:19:04 08/15/2008/16/2023 COMPR EHENS EULA METAB OLIC PANEL alkaline phosphatase 66 U/L 37-153 normal Not Available [address], [address], 08/16/2023 07:19:04 08/15/2008/16/2023 COMPR EHENS EULA METAB OLIC PANEL AST 16 U/L 10-35 normal Not Available [address], [address], 08/16/2023 07:19:04 08/15/2008/16/2023 COMPR EHENS EULA METAB OLIC PANEL ALT 14 U/L 6-29 normal Not Available [address], [address], 08/16/2023 07:19:04 08/15/2008/16/2023 COMPR EHENS EULA METAB OLIC PANEL copy(ies) sent to: [facility] [address] [facility] [address] [place] [address] Not Available [address], [address], 08/16/2023 07:19:04 08/15/2008/16/2023 VITAM IN B12/F OLATE , SERUM PANEL vitamin B12 474 pg/mL 200-11 00 normal Not Available [address], [address], 08/16/2023 07:19:05 08/15/2008/16/2023 VITAM IN B12/F OLATE , SERUM PANEL folate, serum 5.1 NG/mL low Refer ence Range Low: <3.4 Borde rline : 3.4-5 .4 Marichuy l: >5.4 Not Available [address], [address], 08/16/2023 07:19:05 08/15/2008/16/2023 VITAM IN B12/F OLATE , SERUM PANEL copy(ies) sent to: [facility] [address] [facility] [address] [place] [address] Not Available [address], [address], 08/16/2023 07:19:05 08/15/2008/16/2023 T3, FREE T3, free 3.2 pg/mL 2.3-4. 2 normal Not Available [address], [address], 08/16/2023 07:19:06 08/15/2008/16/2023 T3, FREE copy(ies) sent to: [facility] [address] [address] [address] [facility] [address] [place] [address] Not Available [address], [address], 08/16/2023 07:19:06 08/15/2008/16/2023 TSH+F REE T4 TSH 1.74 mIU/L 0.40-4 .50 normal Not Available [address], [address], 08/16/2023 07:19:07 08/15/2008/16/2023 TSH+F REE T4 T4, free 0.8 NG/dL 0.8-1. 8 normal Not Available [facility] [address], [place], [address], 08/16/2023 07:19:07 08/15/20 23 08/16/2023 TSH+F REE T4 copy(ies) sent to: [facility] [address] [place] [address] Not Available [facility] [address], [place], [address], 08/16/2023 07:19:07 06/29/20 21 06/29/2021 US, echoc ardio gram, trans thora cic, compl ete No observ ation record ed. [id number] [facility] [address], [place], [address], 01/10/2023 03:03:02 06/30/20 21 06/29/2021 CT, coron brendan calci um score No observ ation record ed. [id number] [facility] [address], [place], [address], 01/10/2023 03:03:02 06/30/20 21 06/29/2021 CT, coron brendan calci um score No observ ation record ed. [id number] [facility] [address], [place], [address], 01/10/2023 03:03:02 07/11/20 21 06/29/2021 cardi ac telem etry No observ ation record ed. [id number] [facility] [address], [place], [address], 01/10/2023 03:03:02 09/05/20 21 09/02/2021 CT, angio gram, chest , w/ contr ast No observ ation record ed. [id number] [facility] Referral Fax Line [address] [facility] [address], [place], [address], 01/10/2023 03:03:02 12/06/19 22 12/06/2021 US, thyro id No observ ation record ed. [id number] [facility] [address], [place], [address], 01/10/2023 03:03:02 02/02/20 23 01/31/2023 CT, chest , w/o contr ast No observ ation record ed. [email or web address] [facility] [address], [place], [address], 02/05/2023 09:31:22 07/20/2007/20/2023 US, kidne y No observ ation record ed. [facility] [address], [place], [address], 07/21/2023 20:43:48 07/20/20 23 07/20/2023 US, kidne y No observ ation record ed. [email or web address] [facility] [address], [place], [address], 07/21/2023 20:43:48 Result Notes None recorded. Problems Name Problem SNOMED Code Status Onset Date Resolution Date Notes Provider Name and Address Organization Details Recorded Time Thyroid nodule 438507691 Active 2018 Not Available [facility] 3 02:53:21 Hypothyroidis m 32542123 Active 2018 Not Available [facility] 3 02:53:21 Acid reflux 981420740 Active 2018 Not Available [facility] 3 02:53:21 Chronic kidney disease 544486566 Active 2022 Kathia Mclain MD [address], [place], [address] , [facility] [employer] [facility] [employer] [facility] 3 10:13:20 Dyslipidemia 737115378 Active 2022 Kathia Mclain MD [address], [place], [address] , [place] [employer] 3 10:13:35 Esophageal dysphagia 34586931 Active 2022 Alejandra Torrez MD [address], [place], [address] , [employer] [facility] [employer] [facility] 3 10:16:57 Problem Notes None recorded. Procedures Surgical History Date Name Laterality Status Provider Name and Address Organization Details Recorded Time 11/17/09 24 EGD completed Alejandra Torrez MD [address], [place], [address], [employer] [facility] 03/16/2024 09:00:18 Knee Replacement completed Not Available [facility] 01/10/2023 02:47:46 augmentation mammoplasty completed Not Available [facility] 01/10/2023 02:47:46 Removal of tonsils completed Alejandra Torrez MD [address] [facility] [address], [place], [address], [employer] [facility] 10/22/2023 10:22:18 Imaging Results None recorded. Procedure Notes None recorded. Medical Equipment None Reported. Allergies No known drug allergies Medications Name Sig Start Date Stop Date Status Note LastModified by Organization Details LastModified Time amoxicillin 500 mg capsule TAKE FOUR CAPSULES BY MOUTH ONE HOUR BEFORE APPOINTME NT 10/22 completed Not Available Not Available Not Available atorvastati n 20 mg tablet TAKE 1 TABLET BY MOUTH ONCE DAILY active Not Available Not Available No t Available benzonatate 200 mg capsule TAKE 1 CAPSULE BY MOUTH THREE TIMES DAILY NEEDED FOR COUGH 03/30 completed Not Available Not Available Not Available prednisone 20 mg tablet TAKE 2 TABLETS BY MOUTH ONCE DAILY FOR 5 DAYS 01/19 completed Not Available Not Available Not Available phentermine 15 mg capsule Take 1 capsule every day by oral route in the morning for 30 days. 03/30 completed Not Available Not Available Not Available peg-electro lyte solution 420 gram oral solution 07/18 completed Not Available Not Available Not Available omeprazole 40 mg capsule,del ayed release 10/22 completed Not Available Not Available Not Available liothyronin e 5 mcg tablet Take 1 tablet twice a day by oral route for 90 days. active Not Available Not Available No t Available alprazolam 0.5 mg tablet 07/18 completed Not Available Not Available Not Available amoxicillin 875 mg tablet TAKE 1 TABLET BY MOUTH EVERY 12 HOURS FOR 10 DAYS 02/07 completed Not Available Not Available Not Available Fosamax 70 mg tablet TAKE 1 TABLET BY MOUTH ONCE A WEEK active Not Available Not Available No t Available meclizine 25 mg tablet TAKE 1 TABLET BY MOUTH THREE TIMES DAILY NEEDED FOR DIZZINESS active Not Available Not Available No t Available hydrocodone 7.5 mg-acetamin ophen 325 mg tablet 07/18 completed Not Available Not Available Not Available lisinopril 10 mg tablet Take 1 tablet every day by oral route in the morning for 90 days. active Not Available Not Available No t Available Synthroid 50 mcg tablet TAKE 1 TABLET BY MOUTH ONCE DAILY active Not Available Not Available No t Available montelukast 10 mg tablet TAKE 1 TABLET BY MOUTH ONCE DAILY 10/22 completed Not Available Not Available Not Available cyanocobala min (vit B-12) 1,[address] 1 tablet every day by sublingua l route in the morning for 90 days. active Not Available Not Available No t Available Vitamin D2 1,250 mcg (50,000 unit) capsule Take 1 capsule every week by oral route. 01/19 completed Not Available Not Available Not Available Vitamin D3 2019 active 5000 IU Not Available Not Available Not Available ProAir HFA 90 mcg/actuati on aerosol inhaler INHALE 2 PUFFS BY MOUTH 4 TIMES DAILY NEEDED FOR SHORTNESS OF BREATH FOR WHEEZING 03/30 completed Not Available Not Available Not Available Prevnar 13 (PF) 0.5 mL intramuscul ar syringe 07/18 completed Not Available Not Available Not Available Shingrix (PF) 50 mcg/0.5 mL intramuscul ar suspension, kit PHARMACIS T ADMINISTE RED IMMUNIZAT ION ADMINISTE RED AT TIME OF DISPENSIN G active Not Available Not Available No t Available Fluzone High-Dose (PF) 180 mcg/0.5 mL intramuscul ar syringe active Not Available Not Available N ot Available Fluzone High-Dose (PF) 180 mcg/0.5 mL intramuscul ar syringe PHARMACIS T ADMINISTE RED IMMUNIZAT ION ADMINISTE RED AT TIME OF DISPENSIN G active Not Available Not Available No t Available Vitals Date Recorded Body mass index (BMI) Body height Oxygen saturation Oxygen saturation in Arterial blood by Pulse oximetry Heart rate Body temperature Body weight Systolic And Diastolic Provider Name and Address Organization Details Last Updated DateTime 2 28.5 kg/m2 168.91 cm 99 % 99 % 60 /min 97.8 [degF] 74164.0 3 g 120/70 mm[Hg] Not Available [facility] 3 02:49:50 Date Recorded Body height Body mass index (BMI) Body weight Body temperature Heart rate Systolic And Diastolic Provider Name and Address Organization Details Last Updated DateTime 3 168.91 cm 29.7 kg/m2 38800.7 7 g 97.1 [degF] 43 /min 135/63 mm[Hg] [place] [employer] [facility] 3 09:48:49 Date Recorded Body mass index (BMI) Body height Oxygen saturation Oxygen saturation in Arterial blood by Pulse oximetry Heart rate Body temperature Body weight Systolic And Diastolic Provider Name and Address Organization Details Last Updated DateTime 1 29.4 kg/m2 168.91 cm 98 % 98 % 64 /min 97.9 [degF] 30224.5 9 g 164/76 mm[Hg] Not Available [facility] 3 02:49:50 Date Recorded Body mass index (BMI) Body height Oxygen saturation Oxygen saturation in Arterial blood by Pulse oximetry Heart rate Body temperature Body weight Systolic And Diastolic Provider Name and Address Organization Details Last Updated DateTime 2 27.5 kg/m2 168.91 cm 99 % 99 % 44 /min 97.8 [degF] 06017.4 8 g 120/75 mm[Hg] Not Available [facility] 3 02:49:50 Date Recorded Body height Body mass index (BMI) Body weight Body temperature Heart rate Oxygen saturation Oxygen saturation in Arterial blood by Pulse oximetry Systolic And Diastolic Provider Name and Address Organization Details Last Updated DateTime 3 168.91 cm 30 kg/m2 51621.9 6 g 97.8 [degF] 63 /min 97 % 97 % 136/82 mm[Hg] Shonda German RN [facility] [employer] [facility] 10:01:36 Social History Question Answer Notes LastModified by [employer] Details LastModified Time Tobacco Smoking Status Never Smoker DOREEN Stodd[facility] 10/22/2023 09:56:14 What Is Your Level Of Caffeine Consumption? None [id number] Information not available 01/10/2023 How Much Tobacco Do You Chew? None [id number] Information not available 01/10/2023 In The 14 Days Before Symptom Onset, Have You Had Close Contact With A Laboratory-confirm ed COVID-19 While That Case Was Ill? No [email or web address] Information n ot available 10/22/2023 In The 14 Days Before Symptom Onset, Have You Had Close Contact With A Person Who Is Under Investigation For COVID-19 While That Person Was Ill? No [email or web address] Information not available 10/22/2023 Which Illicit Or Recreational Drugs Have You Used? None [email or web address] Information not available 10/22/2023 What Was The Date Of Your Most Recent Tobacco Screening? 10/22/2023 [email or web address] Information not available 10/22/2023 How Much Tobacco Do You Smoke? No [id number] Information not available 01/10/2023 Have You Recently Traveled Abroad? No [email or web address] Information not available 10/22/2023 Sex: Female Functional Status Question Answer Note LastModified by [employer] Details LastModified Time What is your level of alcohol consumption? Occasional [id number] Information not available 01/10/2023 Do you or have you ever used smokeless tobacco? Never used smokeless tobacco [id number] Information not available 01/10/2023 What is your occupation? retired [email or web address] Information not available 10/22/2023 Do you or have you ever used e-cigarettes or vape? Never used electronic cigarettes [email or web address] Information not available 10/22/2023 Mental Status None recorded. Family History Relationship Description Onset Age of this Age Resolved Age Notes LastModified by Organization Details LastModified Time Mother Malignant neoplasm of breast [email or web address] Not available 2022 09:56:13 Mother Malignant neoplasm of colon [email or web address] Not available 2022 09:56:13 Father Heart disease [id number] Not available 01/10/2023 02:47:49 Maternal Grandfather Malignant neoplasm of breast [email or web address] Not available 2022 10:20:43 Medical History Condition Response USE OF BLOOD THINNERS N HYPOTHYROIDISM Y AIDS/HIV N HEART DISEASE/HEART PROBLEMS N HYPERTENSION N GLAUCOMA N STROKE/TIA N HIGH CHOLESTEROL / HYPERLIPIDEMIA Y Gynecological HistoryNo gynecological history recorded. Obstetrics History GPAL:G 0 P 0 0 0 0 Past Encounters Encounter ID Performer Location Encounter Start Date Encounter Closed Date Diagnosis/Indication Diagnosis SNOMED-CT Code Diagnosis ICD10 Code Diagnosis IMO Codes Diagnosis Note [id number] Kathia Mclain MD [facility] [address] [place] [address] 02/07/2021 00:00:00 02/07/2021 11:50:44 [id number] Kathia Mclain MD [facility] [address] [place] [address] 05/09/2021 00:00:00 05/09/2021 11:22:12 [id number] Kathia Mclain MD [facility] [address] [place] [address] 01/16/2022 00:00:00 01/16/2022 10:55:56 [id number] Kathia Mclain MD [facility] [address] [place] [address] 07/21/2022 00:00:00 07/21/2022 11:11:00 [id number] Kathia Mclain MD [facility] [address] [place] [address] 03/02/2023 09:27:33 03/02/2023 10:24:35 Hypothyroidism 62901005 E03.9 FT4 in range- FT3 low normal- having some heat/cold intoleranc e will add liothyroni ne 5 mcg twice daily along with synthroid 50 mcg daily. She was reminded to take her synthroid on empty stomach with glass of water and wait one hour to eat or have her coffee in morning and up to 4 hours if ever taking any heartburn or reflux medication s to help optimize absorption . Discussed paleo like diet with restrictio n of GMOs to help with energy and to optimize absorption of vitamins and minerals and reduce inflammati on. Chronic ki dney disease 301528030 N18.9 send for renal u/s- she has several family members with one kidney. We will plan to obtain imaging to see if this is the case for patient as she has had chronic but stable level 1-2 CKD. If renal u/s normal recommende d patient consider a 24 hour urinary protein collection and considerat ion of renal consultati on. Dyslipidemia 008350263 E 78.5 Recently started on statin therapy as LDL jumped from 119 mg/dL up to 159 mg/dL over the past year- she is tolerating therapy well and will follow cardiology later summer. Spent up to 28 minutes preparing to see the patient (eg, review of tests), obtaining and/or reviewing separately obtained history, performing a medically appropriat e examinatio n and evaluation , counseling and educating the patient, ordering medication s, tests, along with documentin g clinical informatio n in the electronic health record, independen tly interpreti ng results and communicat ing results to the patient. RTC in 6 months. Patient was provided a handwritte n lab order which contains our fax number. If she chooses to go outside of the [facility] system to obtain labwork she was advised to provide our fax number and my informatio n to the lab she will be obtaining labwork from in order to have her labs properly forwarded over for me to review so there is no loss of follow up due to use of outside network. She was also advised to contact our clinic informing us that she has completed her labwork so we are aware we will need to reach out to the appropriat e laboratory to request her results be forwarded to us so I might have the ability to review and make further medical decision making in her case. She voiced understand ing. [id number] Alejandra Torrez MD [facility] Primary Care [facility] [address] [place] [address] 10/22/2023 09:55:22 10/22/2023 10:31:47 Esophageal dysphagia [id number] R13.19 has h/o stricture that has been dilated, now having difficulty with meat/bread EGD referral given Hypothyroidism [id number] E03.[address] Mclain, needs new endocrinol ogy Health Concerns Section Related Observation LastModified by Organization Detai ls LastModified Time None Recorded Concern Status LastModified by Organization Details LastModified Time None Recorded Advance Directives Directive None Recorded Payers Insurance Date Sequence Insurance Name Policy Number Policy Mejia Covered Member ID Mejia Member ID Guarantor Name 10/19/2023 1 [facility] (MEDICARE REPLACEMENT/A DVANTAGE - PPO) [id number] Manju Hart [id number] Manju Hart Notes Date Note Type Note Provider Name and Address Organization Details Recorded Time 03/02/2023 text/html ROS as noted in the HPI 72 yo female comes in for follow up in management of hypothyroidism, vit B12/vit D def last seen in Jul at that time we continued synthroid 50 mcg daily along with B12 supplementation and vit D 4000 IU daily. She was placed on atorvastatin since her last visit with cardiology. At the beginning she had some pressure and discomfort which is improving. She had CT score which was zero. labs from 12/27/22:TSH of 5.1 uIU/mlFT4 of 1.2 ng/dLvit 46 ng/mLFT3 of 2.6 pg/mlB12/folate high normalglucose 92 mg/dLCr 1.13 mg/dL with GFR 52 ml/minLFT [id number] Kathia Mclain MD [address], [place], [address], [employer] 03/02/2023 10:24:37 10/22/2023 text/html ROS as noted in the HPI EGD in 2019-needed to be dilated and she now has dysphagia with meat/bread. Cardiology: Dr. Tsang: Dr. Heath Up to date with colonoscopy and mammogram Alejandra Torrez MD [address] [facility] [facility], [place], [address], [employer] 10/22/2023 10:27:55 OBGyn Episode No OBEpisode recorded.
--- NOTE | 2025-08-26 11:04 | ED_ITS ---
HPI - Back Pain/Injury General Chief Complaint: Back Pain/Injury Stated Complaint: CHRONIC BACK PAIN Time Seen by Provider: 08/26/25 10:17 Source: patient and RN notes reviewed Mode of arrival: ambulatory Limitations: no limitations History of Present Illness HPI Narrative: 75-year-old female presents [facility] complaining of chronic back pain. Patient reports having chronic issues however over the last 10 days or pain is been lot worse than normal. Patient reports lumbar back pain. Patient denies any falls or injuries. Patient says the pain radiates to both sides of her lower back. Patient denies any shooting pains down her legs. Patient denies any saddle anesthesia, loss of bowel or bladder function, leg weakness, urinary symptoms, fevers, body aches chills, or any other symptoms. Patient is taking [employer] goes, lidocaine patches, ice, stretches without any relief at home. Related Data Home Medications ?Medication ?Instructions ?Recorded ?Confirmed ?Last Taken ?Type Calcium 1,200 mg PO DAILY 10/25/19 0 08/03/25 02/29/24 History cholecalciferol (vitamin D3) 125 2,000 unit PO DAILY 1 12/26/18 08/03/25 02/29/24 History mcg (5,000 unit) tablet (Vitamin D3) mecobalamin (vitamin B12) 1,000 2,000 mcg PO DAILY 03/0508/03/25 02/29/24 History mcg chewable tablet (B12 Active) omeprazole 20 mg capsule,delayed 20 mg PO DAILY PRN ge rd 06/02/25 08/03/25 Unknown History release Allergies Allergy/AdvReac Type Severity Reaction Status Date / Time No Known Allergies Allergy Verified 08/26/25 09:25 Review of Systems Review of Systems: CONSTITUTIONAL: Denies fever, chills, or sweats. EYES: Denies visual changes, redness, or discharge. ENT: Denies rhinorrhea, congestion, sore throat, or otalgia. CARDIOVASCULAR: Denies chest pain, palpitations, or edema. RESPIRATORY: Denies cough or dyspnea. GASTROINTESTINAL: Denies abdominal pain, nausea, vomiting, or diarrhea. GENITOURINARY: Denies dysuria or hematuria. SKIN: Denies rash or itching. MUSCULOSKELETAL: Positive for low back pain. Negative for joint pain, or myalgia. NEUROLOGIC: Denies headache, numbness, loss of bowel or bladder function, saddle anesthesia, leg weakness, or weakness. PSYCHIATRIC: Denies anxiety or depression. All other systems reviewed are negative, except as documented in HPI. [facility] Past Medical History Medical History High cholesterol Osteoporosis Hyperthyroidism GERD (gastroesophageal reflux disease) Surgical History Surgical History History of tubal ligation History of knee replacement right knee 04/16/2018 Family History Family History Mother Family history of arthritis Family history of lung cancer Carcinoma of colon Family history of malignant neoplasm of breast in first degree relative Family history of lung disease Father Family history of heart disease in male family member before age 55 Other Family history of coronary artery disease Family history of malignant neoplasm Social History Social History Social History: Caffeine-chi tea Smoking status: Never smoker Second hand tobacco smoke exposure: No Alcohol intake: never Alcohol use details: Seldom Substance use: never Substance use type: does not use Do You Feel Safe in your Home?: Yes Lack of Transportation: No Lack of Food: Never True Current Housing: I Have Housing Concerned About Future Housing: No Difficulty Paying Gas/Electric Bills: No Difficulty Paying for Meds: No Currently Unemployed: No Education: High School Diploma/GED Difficulty w/ Childcare or Family Care: No Living arrangements: with family Occupation/Education: retired Gender identity (if verbalized by the patient): Female Spiritual care concerns: No Comments At the time of my signature, I reviewed and agree with the nursing past medical, surgical, social, and family history. There is no relevant family history pertinent to the patient complaint. Exam Narrative: GENERAL: This is a well-nourished, well-developed adult, in no apparent distress. They are non ill-appearing, nontoxic appearing. HEAD: normocephalic, atraumatic. EYES: Sclera clear/white. Conjunctiva normal. Vision is grossly intact. Extraocular movements intact EARS: External ears normal, Hearing grossly intact. NOSE: External nose normal THROAT: Mucous membranes moist, NECK: Neck supple, CARDIOVASCULAR: Regular rate and rhythm RESPIRATORY: Respiratory rate normal, respiratory effort nonlabored, no respiratory distress SKIN: warm, Dry, intact with no suspicious lesions or rash, good texture and turgor. NEURO: awake, alert, and oriented to person, place and time. There were no obvious focal neurologic abnormalities. EXTREMITIES: No joint tenderness, effusion, or edema noted. BACK: Lumbar back pain to palpation. No bony tenderness crepitus or step- offs.. No CVA tenderness. Course Course Emergency Course: Portions of this record may have been created with voice recognition software Vital Signs Vital signs: Vital Signs Temperature 97.4 F L 08/26/25 09:22 Pulse Rate 65 08/26/25 09:22 Respiratory Rate 16 08/26/25 09:22 Blood Pressure 150/64 H 08/26/25 09:22 Pulse Oximetry 99 08/26/25 09:22 Temperature 97.4 F L 08/26/25 09:22 Pulse Rate 65 08/26/25 09:22 Respiratory Rate 16 08/26/25 09:22 Blood Pressure 150/64 H 08/26/25 09:22 Pulse Oximetry 99 08/26/25 09:22 Reviewed MDM - Back Pain/Injury MDM Narrative Medical decision making narrative: Will obtain x-ray of back to assess for any changes to her lumbar spine. X-ray lumbar spine shows changed severe lumbar sacral spondylosis with [id number] lumbar and lower thoracic spondylosis. Discussed these findings patient advised follow-up with PCP she may need referral to specialist. Will give her course of prednisone along with muscle relaxers for pain. No cauda equina symptoms. Discussed physical exam findings. Advised supportive measures and signs/symptoms to go to the ER. Pt is appropriate for outpt treatment and f/u.. Differential Diagnosis Differential diagnosis: Likely lumbar radiculopathy, sciatica and strain of lumbar region Imaging Data Radiologist's impression: ITS Impressions Lumbar Spine X-Ray 08/26/25 11:44 IMPRESSION: 1. Severe lumbosacral and mild to moderate lumbar and lower thoracic spondylosis. Critical Care Time Critical Care Time Critical Care Time: No Discharge Plan Discharge Clinical Impression: Lumbar spondylolysis Patient Disposition: Home Condition: Stable Instructions: Antibiotic Form, Lumbar Radiculopathy (ED) Additional Instructions: X-ray lumbar back does show severe degenerative changes from previous x-ray. Please follow-up with your PCP for further evaluation management 3-5 days. Take the muscle relaxer as directed. Do not drive or operate heavy machine, or work while taking the medication as it can make you drowsy. Do not combine this medication with your [employer] that you take at home. Tylenol and ibuprofen as needed for pain. Follow instructions on the bottle. Rest. Avoid pushing, pulling, lifting --running or excessive walking-- or anything that worsens the symptoms You may try stretching your lower back or doing spinal decompression to help with symptoms. Go to the emergency department if you develop any numbness or tingling to your groin, weakness in your legs, or any loss of bowel or bladder function, or any serious concerns.. Patient Language: Belizean Prescriptions: New prednisone 20 mg tablet 40 mg PO DAILY 5 Days Qty: 10 0RF methocarbamol 750 mg tablet 750 mg PO TID Qty: 12 0RF No Action cholecalciferol (vitamin D3) [Vitamin D3] 125 mcg (5,000 unit) Tablet 2,000 unit PO DAILY Calcium 1,200 mg PO DAILY omeprazole 20 mg capsule,delayed release(DR/EC) 20 mg PO DAILY PRN (Reason: gerd) meclizine 25 mg tablet 25 mg PO DAILY PRN (Reason: Dizziness) Qty: 30 0RF levothyroxine [Synthroid] 75 mcg tablet 75 mcg PO DAILY Qty: 30 5RF mecobalamin (vitamin B12) [B12 Active] 1,000 mcg Tablet,Chewable 2,000 mcg PO DAILY Follow-up/Referrals: PHYSICIAN,INTERVENTIONAL NURSE [Primary Care Provider, Internal Medicine] Time of Disposition: 12:13
--- OUTSIDE RECORDS SUMMARY | 2025-08-26 12:04 | XMS_ITS | Clinical Summary ---
Author Organization [facility] [address] [facility] Address [address] [place] [address] Care Team Providers Care Stick Roller Name Role Phone Kierra Olivia Primary Care Provider [phone] Allergies No known active allergies Medications alendronate [...] maintain. Assessment & Plan (01/11/2022 8:27 AM LOADING UNIT OPERATOR [employer]): Weight/BMI is in healthy range. Continue healthy lifestyle to maintain. Medicare annual wellness visit, subsequent 01/09 Assessment & Plan (01/11/2022 9:14 AM LOADING UNIT OPERATOR [employer]): Encouraged healthy lifestyle, good nutrition and exercise. [...] screenings. Assessment & Plan (01/09/2021 9:17 PM LOADING UNIT OPERATOR [employer]ING): Encouraged healthy lifestyle, good nutrition and exercise. [...] labs. Assessment & Plan (01/11/2022 9:14 AM LOADING UNIT OPERATOR CR[employer]ING): Kidney function with continued stability. Continue to avoid renal toxic drugs. Assessment & Plan (07/19/2021 9:03 AM CDT): Avoid nephrotoxic drugs including NSAIDs. Monitor labs. Assessment & Plan (01/10/2021 9:59 AM LOADING UNIT OPERATOR CR[employer]): Avoid nephrotoxic drugs including NSAIDs. Monitor labs. Assessment & Plan (07/10/2020 8:59 PM CDT): Avoid nephrotoxic drugs including NSAIDs. Monitor labs. Assessment & Plan (01/04/2020 8:28 PM LOADING UNIT OPERATOR CRIMPING): Avoid nephrotoxic drugs including NSAIDs. Monitor labs. Multiple thyroid nodules 12/21/2019 Assessment & Plan (08/06/2022 9:00 PM CDT): Continue per Dr. Breen she manages the thyroid nodules and thyroid levels Assessment & Plan (01/11/2022 9:13 AM LOADING UNIT OPERATOR CRIMPING): Continue per Dr. breen Assessment & Plan (12/21/2019 4:36 PM LOADING UNIT OPERATOR CRIMPING): Continue per Dr. Fong. 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 sin Assessment & Plan (01/11/2022 9:13 AM LOADING UNIT OPERATOR CRIMPING): Continue per Dr. breen Assessment & Plan (07/19/2021 9:02 AM CDT): Continue per Dr. Fong Assessment & Plan (01/10/2021 10:01 AM LOADING UNIT OPERATOR CRIMPING): Managed by Endocrine On Synthroid brand Assessment & Plan (07/10/2020 9:00 PM CDT): Continue levothyroxine Assessment & Plan (01/04/2020 8:29 PM LOADING UNIT OPERATOR CRIMPING): Continue synthroid. Labs stable. Assessment & Plan (12/21/2019 4:35 PM LOADING UNIT OPERATOR CRIMPING): Continue per Dr. Fong, endocrine. Elevated blood pressure read ing without diagnosis of hypertension 12/21/2019 Assessment & Plan (01/10/2021 10:02 AM LOADING UNIT OPERATOR CRIMPING): Continue to monitor readings. Still borderline Assessment & Plan (01/04/2020 8:31 PM LOADING UNIT OPERATOR CRIMPING): Stable. Continue to monitor closely Assessment & Plan (12/21/2019 4:37 PM LOADING UNIT OPERATOR CRIMPING): This is a significant, separately identifiable problem [...] PPI Assessment & Plan (01/11/2022 9:13 AM LOADING UNIT OPERATOR CRIMPING): Continue PPI. Assessment & Plan (07/19/2021 9:03 AM CDT): Stable with prn PPI Assessment & Plan (01/10/2021 9:59 AM LOADING UNIT OPERATOR CRIMPING): Continue PPI Assessment & Plan (07/10/2020 8:59 PM CDT): Continue PPI If tightening continues, will return to Dr. Reynoso for possible EGD Assessment & Plan (01/04/2020 8:28 PM LOADING UNIT OPERATOR CRIMPING): Continue the PPI Assessment & Plan (12/21/2019 4:34 PM LOADING UNIT OPERATOR CRIMPING): Continue PPI History of bilateral breast implants 12/21/2019 Assessment & Plan (01/10/2021 10:04 AM LOADING UNIT OPERATOR CRIMPING): Patient states Dr. Caldwell and Dr. Scruggs are working on her possible implants leaking vs ripple etc. She will keep us up to date. Assessment & Plan (07/10/2020 9:00 PM CDT): Continue per Dr. Scruggs Assessment & Plan (01/04/2020 8:30 PM LOADING UNIT OPERATOR CRIMPING): Continue per Dr. Healy Age-related osteoporosis wit hout current pathological fracture 12/21/2019 Assessment & Plan (08/06/2022 9:01 PM CDT): Continue Fosamax calcium vitamin-D and exercise. Dex is monitored by Assessment & Plan (01/11/2022 9:13 AM LOADING UNIT OPERATOR CRIMPING): Continue per Dr. breen. She is tolerating the Fosamax. Encouraged calcium vitamin-D and exercise. Assessment & Plan (07/19/2021 9:04 AM CDT): Continue calcium and vitamin D. Request DXA -- she states she plans to review with Dr. Fong at her next visit. Assessment & Plan (01/10/2021 10:01 AM LOADING UNIT OPERATOR CRIMPING): Dr. Caldwell/FIRST CALENDER WORKER manages fosamax and DXA. Assessment & Plan (07/10/2020 8:59 PM CDT): Continue fosamax Encourage calcium, vitamin D and weight bearing exercise to maintain the good bone strength. Assessment & Plan (01/04/2020 8:28 PM LOADING UNIT OPERATOR CRIMPING): Continue with Fosamax. Dr. Caldwell manages Assessment & Plan (12/21/2019 4:35 PM LOADING UNIT OPERATOR CRIMPING): Continue Fosomax and calcium, vitD and exercise. Stress 12/21/2019 Assessment & Plan (07/10/2020 9:01 PM CDT): Continue to montior. States ok currently without medication Assessment & Plan (01/04/2020 8:30 PM LOADING UNIT OPERATOR CRIMPING): Pt feels like all is stable. Wants to continue to monitor without meds. 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 Fong. Continue levothyroxine Hyperglycemia 11/25/2019 Assessment & Plan (08/06/2022 9:00 PM CDT): Pre-diabetes/hyperglycemia is a precursor to Dm. Stressed importance of working on diet (decrease your simple sugars and one carbohydrate with each meal) and increase you exercise to achieve weight loss and this will help prevent you from progressing to diabetes. Assessment & Plan (01/11/2022 9:13 AM LOADING UNIT OPERATOR CR[employer]ING): Monitor labs. Continue activity and weight loss. [...] 30#s Assessment & Plan (01/10/2021 10:01 AM LOADING UNIT OPERATOR CRIMPING): Pre-diabetes is a precursor to Dm. Stressed [...] diabetes. Assessment & Plan (01/04/2020 8:29 PM LOADING UNIT OPERATOR CRIMPING): A1c is normal Assessment & Plan (12/21/2019 4:35 PM LOADING UNIT OPERATOR CRIMPING): This is a significant, separately identifiable problem [...] needed. Assessment & Plan (01/11/2022 9:13 AM LOADING UNIT OPERATOR CRIMPING): Encouraged patient to follow fat/low chol diet [...] needed. Assessment & Plan (01/04/2020 8:28 PM LOADING UNIT OPERATOR CRIMPING): Encouraged patient to continue low fat/low chol diet. Continue exercise. Increase good fats in the diet. Monitor labs as needed. Assessment & Plan (12/21/2019 4:36 PM LOADING UNIT OPERATOR CRIMPING): Encouraged patient to continue low fat/low chol [...] 01/10/20212020 Assessment & Plan (01/10/2021 8:15 AM LOADING UNIT OPERATOR CRIMPING): Obesity is unchanged. Discussed the patient's BMI. The BMI is above average. BMI management plan is completed. BMI Follow-up includes: nutrition counseling, exercise counseling and education provided. BMI 33.0-33.9,adult 01/10/2021 07/19/20 21 Assessment & Plan (01/10/2021 8:16 AM LOADING UNIT OPERATOR [employer]ING): Obesity is unchanged. Discussed the patient's BMI. [...] provided. Assessment & Plan (01/01/2020 8:48 AM LOADING UNIT OPERATOR CRIMPING): Obesity is unchanged. Discussed the patient's BMI. The BMI is above average. BMI management plan is completed. BMI Follow-up includes: nutrition counseling, exercise counseling and education provided. Medicare annual wellness visit, initial 12/21/2019 01/01/2020 Assessment & Plan (12/21/2019 4:37 PM LOADING UNIT OPERATOR [employer]ING): Encouraged healthy lifestyle, good nutrition and exercise. Encouraged Calcium and Vitamin D and weight bearing exercise for bone health. Reviewed immunizations Reviewed age appropirate screenings. Documentation is on the chart Need for 23-polyvalent pneum ococcal polysaccharide vaccine 12/21/2019 01/01/2020 Assessment & Plan (12/21/2019 4:37 PM LOADING UNIT OPERATOR [employer]): Updated in office today Positive depression screening 12/21/2019 01/01/2020 Assessment & Plan (12/21/2019 4:39 PM LOADING UNIT OPERATOR CRIMPING): See stress. May be situational. Monitor closely BMI 34.0-34.9,adult 11/25/2019 01/01/20 Assessment & Plan (12/21/2019 4:36 PM LOADING UNIT OPERATOR [employer]ING): Obesity is unchanged. Discussed the patient's BMI. [...] provided. Assessment & Plan (01/01/2020 8:48 AM LOADING UNIT OPERATOR CRIMPING): Obesity is unchanged. Discussed the patient's BMI. The BMI is above average. BMI management plan is completed. BMI Follow-up includes: nutrition counseling, exercise counseling and education provided. Assessment & Plan (12/21/2019 4:34 PM LOADING UNIT OPERATOR [employer]): Obesity is unchanged. Discussed the patient's BMI. The BMI is above average. BMI management plan is completed. BMI Follow-up includes: nutrition counseling, exercise counseling and education provided. Other fatigue 11/25/2019 01/01/2020 Assessment & Plan (12/21/2019 4:37 PM LOADING UNIT OPERATOR CRIMPING): Probably multifactorial. Check labs and followup to [...] on file Legal Sex Female 6:32 PM LOADING UNIT OPERATOR [employer] Gender Identity Not on file Sexual Orientation [...] Laterality Modality Breast Bilateral Mammography Chelsey Haque MOTEL MANAGER IMG MAMMO PROC EDURES Final Result * DEXA SCAN (04/20/2021) Historical Provider HEALTH MAINTENANCE Final Result * COLONOSCOPY (01/31/2019) Colonoscopy Abnormal Comment:Reynoso-Family HX Historical Provider HEALTH MAINTENANCE Final Result from Last 3 Months or Most Recently Relevant to Health Maintenance Insurance [facility] MEDICARE ADVANTAGE Care Teams Stick Roller Relationship Specialty Start Date End Date Kierra Olivia PA [address] [facility] [address] [place] [address] PCP - General Internal Medicine 09/29/19
== END 2025-08-26 12:25 | disposition home or self-care (01) ==
DX: M47.816 Spondylosis without myelopathy or radiculopathy, lumbar region (principal); G89.29 Other chronic pain; E78.00 Pure hypercholesterolemia, unspecified; E05.90 Thyrotoxicosis, unspecified without thyrotoxic crisis or storm; M81.0 Age-related osteoporosis without current pathological fracture; K21.9 Gastro-esophageal reflux disease without esophagitis; Z96.651 Presence of right artificial knee joint; M47.814 Spondylosis without myelopathy or radiculopathy, thoracic region; Z79.899 Other long term (current) drug therapy
CPT/HCPCS: 72110; 99283

== ENCOUNTER 2025-11-06 09:30 | Outpatient (RCR) | payer MEDICARE, SELFPAY ==
--- NOTE | 2025-10-12 10:00 | OPREHPOC ---
Outpatient Therapy Plan of Care This is a Multidisciplinary Plan of Care that may contain components documented by all disciplines (PT, OT, and ST.) PT Problem 1 PT Problem #1 Knowledge Deficit PT Goal 1 Goal / Goal Update *independent with HEP * demonstrate correct body mechanics with lifting from the floor Target Visit 8 PT Problem 2 PT Problem #2 Pain PT Goal 1 Goal / Goal Update 1* pt report pain rating at worst of 5/10 Target Visit 8 PT Problem 3 PT Problem #3 Impaired Strength PT Goal 1 Goal / Goal Update 1* increase strength of trunk and hips to 4+/5, to improve stability to spine 2* pt perform bilateral UE box lift of 20# from waist/floor height x 3 reps without pain increase PT Problem 4 PT Problem #4 Impaired Flexibility PT Goal 1 Goal / Goal Update increase R anterior hip/quad length with prone knee flexion to 115', to decrease pull on R hip-- decrease muscle imbalance R/L Target Visit 8
--- NOTE | 2025-10-12 10:01 | PTOPEVAL1 ---
Assessment and note entered by Enriqueta Harrington, PT Evaluation Information Assessment Status Evaluation ICD-10 Condition Codes (PT) Pain in low back M54.50,Weakness R53.1 Onset 08-16-25 Subjective Information after working out in the yard and more activity, lifting something; went to ER 08-16-25; x ray: severe lumbar-sacral and mild to moderate lumbar and lower thoracic; prednisone helped decrease pain; have been avoiding lifting; chronic issues with low back pain; also R knee pain s/p TKR ~ 7 years ago; have not had PT for her back activity: retired; active lifestyle Reported Pain Level Pain Score 5: Self Report Additional Pain Score Comments pain range in the past week: 0-9/10; tight and pulling, R low back, into lateral and anterior hip decrease pain: icy hot, tylenol PRN; heating massage pad increase pain: lifting; also have R knee pain/ S/P TKR Dr. Menjivar- he checked and said bursitis and nothing else he can do and R foot pain walking is OK; sleeping is OK but stiff; Assessment PT Clinical Summary Manju has the diagnosis of low back pain. She has history of chronic back pain that increased after lifting and more yard work in August. X ray reported changes over lower thoracic, lumbar and sacral spine. Self assessment with back index rating of 22% limitation in activity level. She is retire and active, tries to walk daily for fitness. Also have R knee pain, s/p R TKR ~ 7 years ago. Knee was checked by surgeon and she was told bursitis and nothing he could do. Sometimes she has pain in R foot. With the evaluation: poor posture of bilateral ankles, with eversion position and R knee valgus; tenderness over R lower lumbar and R lateral knee ; weakness of hips and trunk; standing trunk extension increases pain; tightness over R anterior hip/quad with prone knee flexion. Skilled PT services are indicated for modalities to decrease pain and tightness, therapeutic exercises to increase hips and trunk strength with education for HEP, posture and body mechanics. Plan of Care Interventions Electrical Stimulation,Hot Pack/Cold Pack,Manual Therapy,Mechanical Traction,Neuro Re-education, Patient/Caregiver Education,Therapeutic Activities ,Therapeutic Exercise,Ultrasound,Other Other Interventions taping PT Services Indicated Yes Treatment Frequency and 1-2x/wk for 8 visits Duration These treatments will address the objective and functional deficits as defined above. The patient will be advanced safely and appropriately in order for the patient to progress towards his/her prior level of function. Additional exercises will be introduced and as well as a comprehensive home exercise program upon discharge, if needed, ?to ensure carryover of functional gains achieved in the clinic. This treatment plan has been reviewed and agreement upon by the patient.
--- NOTE | 2025-11-06 10:20 | OPREHPOC ---
Outpatient Therapy Plan of Care This is a Multidisciplinary Plan of Care that may contain components documented by all disciplines (PT, OT, and ST.) PT Problem 1 PT Problem #1 Knowledge Deficit PT Goal 1 Goal / Goal Update *independent with HEP * demonstrate correct body mechanics with lifting from the floor 11-06-25 d/c goals met Target Visit 8 Progress Met PT Problem 2 PT Problem #2 Pain PT Goal 1 Goal / Goal Update 1* pt report pain rating at worst of 5/10 11-06-25 d/c goal met Target Visit 8 Progress Met PT Problem 3 PT Problem #3 Impaired Strength PT Goal 1 Goal / Goal Update 1* increase strength of trunk and hips to 4+/5, to improve stability to spine 2* pt perform bilateral UE box lift of 20# from waist/floor height x 3 reps without pain increase 11-06-25 d/c goals met Progress Met PT Problem 4 PT Problem #4 Impaired Flexibility PT Goal 1 Goal / Goal Update increase R anterior hip/quad length with prone knee flexion to 115', to decrease pull on R hip-- decrease muscle imbalance R/L 11-06-25 d/c goal met Target Visit 8 Progress Met
--- NOTE | 2025-11-06 10:20 | PTOPDC ---
Assessment and note entered by Enriqueta Harrington, PT Assessment Status Discharge ICD-10 Condition Codes (PT) Pain in low back M54.50,Weakness R53.1 Onset 08-16-25 Subjective Information doing good, back does not hurt; able to host Renée dinner OK and doing everything; the exercises help--bought a strap to stretch my legs and a roller to use on my back; Reported Pain Level Pain Score 0: Self Report Additional Pain Score Comments no pain in her low back in the past week; do have pain R knee and upper back; R knee pain in the past week -02/19- stairs increase; Assessment PT Clinical Summary Manju has received 8 PT sessions. Compared to the initial evaluation: she has improved in all areas: pain rating from 0-9/10 to 0/10; self assessment with back index rating from 22 to 0% limitation in activity; increase flexibility of R and L anterior-hip and quad with prone knee flexion & strength of trunk and hips; good body mechanics with lifting bilateral UE box waist/floor height of 30# without pain in her low back; education completed for HEP and pain management of rest/activity balance. The goals were achieved. Discharge PT and continue with HEP and pain management. Plan of Care PT Services Indicated No
== END 2025-11-06 11:06 | disposition home or self-care (01) ==
LOC: ANHPT 09:30
PROVIDERS: Visit Provider Orthopaedic Surgery
DX: M54.50 Low back pain, unspecified (principal)
CPT/HCPCS: 97035; 97110; 97140; 97161; 97530